=== PATIENT | female | born 1955 | race Caucasian/White ===

== ENCOUNTER → 2016-07-07 | Outpatient (CLI) | payer OTHER ==
[~2016-07-07] MED LIST: APIX2.5T PO; ASPI81TA82 PO; ATOR20TA15 PO; ATOR20TA42 PO; BACT800T5 PO; CALC500T35 PO; CHOL50006 PO; CYAN1000P IM; DEXA1TAB PO; DEXA2TAB PO; DEXA2TAB10 PO; ESOM1CAP16; HYDR5TAB64 PO; LEVO75TA3 PO; LEXA20TA PO; LORA-474 PO; LORA1TAB12 PO; NEXI40CA PO; OXCA300 PO; OXCA600T PO; PHEN100 PO; RIVA15 PO; SYMB160A INH; TRIL300T PO; VENTAER INH; VITA100018 PO; VITA100020 IM; VITA400C5 PO; ZOFR4TAB PO
[2016-07-07 13:13] LABS: FREE T4 0.72 NG/DL (0.76-1.46)
== END ==
LOC: OLAB 07:16
DX: R53.83 Other fatigue (principal); D32.9 Benign neoplasm of meninges, unspecified; Z92.3 Personal history of irradiation; Z79.52 Long term (current) use of systemic steroids
CPT/HCPCS: 84439; 84443

== ENCOUNTER 2016-09-04 13:35 | Emergency (ER) | payer OTHER ==
[~2016-09-04] VITALS: Ht 167.6 cm; Wt 95.0 kg
[~2016-09-04 13:35] MED LIST changes: -APIX2.5T PO; -ATOR20TA15 PO; -BACT800T5 PO; -CALC500T35 PO; -CYAN1000P IM; -DEXA1TAB PO; -DEXA2TAB PO; -HYDR5TAB64 PO; -LEVO75TA3 PO; -LORA1TAB12 PO; -NEXI40CA PO; -OXCA600T PO; -TRIL300T PO; -VITA100018 PO; -VITA400C5 PO; -ZOFR4TAB PO
[2016-09-04 13:37] VITALS: BP 132/74; PULSE 101; RESP 17; TEMP 98.4; O2SAT 94
[2016-09-04] MEDS ORDERED: SODIUM CHLORIDE 0.9% FLUSH 5 ML FLUSH IVF PRN (14:00)
--- NOTE | 2016-09-04 14:23 | RADRPT ---
EXAM DATE/TIME: 09/04/2016 14:01 [facility] COMPARISON: No previous studies available for comparison. INDICATIONS : Shortness of breath and pain when breathing in MEDICAL HISTORY : Seizures. PE 2 years ago, mitral valve prolapse SURGICAL HISTORY : Cholecystectomy. Hysterectomy. ENCOUNTER: Initial ACUITY: 1 day PAIN SCORE: 7/10 LOCATION: Bilateral chest FINDINGS: No infiltrate, effusion or pneumothorax. Trace linear scar seen left mid to lower lung laterally. Hea rt size stable, upper limits of normal. CONCLUSION: No acute cardiopulmonary disease demonstrated. Jared Ervin MD on September 04, 2016 at 14:21 Board Certified Radiologist. This report was verified electronically.
--- NOTE | 2016-09-04 14:24 | PD ---
HPI Chief Complaint: Respiratory Symptoms Time Seen by Provider: 13:49 Travel History International Travel<30 days: No Contact w/Intl Traveler<30days: No Traveled to known affect area: No History of Present Illness HPI 61-year-old female presents with shortness of breath and nasal congestion over the past couple of days. She states Wednesday she flew down from [place] where she was helping take care of her father. She states that she has history of pulmonary embolism and takes eliquis for this. She states she discussed her symptoms with Dr. jenkins who advised she come to the emergency department. She states in terms of her asthma she has not had an increased use in her inhaler use. She denies any fever or other concurrent complaints. She denies any specific sick contacts. Duration is couple of days. PFSH Past Medical History Hx Anticoagulant Therapy: Yes Asthma: Yes Blood Disorders: No Anxiety: Yes Depression: Yes (PTSD) Heart Rhythm Problems: Yes (SINUS TACH) Cancer: No Cardiac Catheterization: Yes Cardiovascular Problems: Yes (PE) High Cholesterol: Yes Chemotherapy: No Chest Pain: No Congestive Heart Failure: No COPD: No Diabetes: No Diminished Hearing: No Endocrine: No Gastrointestinal Disorders: Yes (ANAL POUCH (ULCERTIVE COLITIS/ TOT. COLECTOMY) , ULCER HX) GERD: Yes Genitourinary: No Headaches: Yes Hepatitis: No Hiatal Hernia: No Hypertension: Yes Immune Disorder: No Implanted Vascular Access Dvce: Yes Kidney Stones: No Musculoskeletal: Yes ( NECK PAIN, ARTHRITIS) Neurologic: Yes (MENINGIOMAS, MENIER'S SYNDROME, BALANCE PROBLEMS SOMETIMES) Psychiatric: Yes Reproductive: Yes Respiratory: Yes (BILAT PE JAN 2016) Migraines: No Radiation Therapy: Yes (meningioma on head x5 treatments, stopped 02/2015) Renal Failure: No Seizures: Yes Sickle Cell Disease: No Sleep Apnea: No Thyroid Disease: No Menopausal: Yes : 4 Para: 3 Miscarriage: 1 Past Surgical History Abdominal Surgery: Yes (TOTAL COLLECTOMY/small bowel resection) AICD: No Body Medical Devices: teena from cholectomy, FOREIGN OBJECT IN HEAD FROM CRAINEOTOMY Cardiac Surgery: Yes (CARDIAC CATH NO STENTS ) Coronary Artery Bypass Graft: No Ear Surgery: No Endocrine Surgery: No Eye Surgery: Yes (CATARACT SX BILAT EYE) Genitourinary Surgery: No Gynecologic Surgery: Yes (NISSA with BSO) Hysterectomy: Yes Joint Replacement: No Neurologic Surgery: Yes (CRANIOTOMY =MENIGIOMA) Oral Surgery: Yes (tooth extraction) Pacemaker: No Thoracic Surgery: No Other Surgery: Yes (REMOVAL OF MENINGIOMA) Family History Family Myocardial Infarction: Yes (FATHER) Social History Alcohol Use: No ( ) Tobacco Use: No Substance Use: No Allergies-Medications (Allergen,Severity, Reaction): Coded Allergies: Demerol (Verified Allergy, Severe, Nausea/Vomiting, 09/04/16) Lortab (Verified Allergy, Severe, Itching, 09/04/16) Topamax (Verified Allergy, Unknown, INCREASED HEART RATE, 09/04/16) Serevent (Verified Adverse Reaction, Severe, RESP FAILURE, 09/04/16) DENIES RESP FAILURE STATES CHEST PRESSURE. Reported Meds & Prescriptions Reported Meds & Active Scripts Active Reported Ventolin Hfa 18 GM Inh (Albuterol Sulfate) 90 Mcg/Act Aer 2 Puff INH Q6H PRN Atorvastatin (Atorvastatin Calcium) 20 Mg Tab 20 Mg PO HS Symbicort Inh (Budesonide/Formoterol Fumarate) 160-4.5 Mcg/Act Aero 2 Puff INH Q12HR Dexamethasone 2 Mg Tab 2 Mg PO EVERY OTHER DAY Dexamethasone 1 Mg Tab 1 Mg PO EVERY OTHER DAY Nexium (Esomeprazole DR) 40 Mg Capdr 40 Mg PO DAILY Lorazepam 1 Mg Tab 1 Mg PO Q6H PRN Cyanocobalamin Inj (Cyanocobalamin) 1,000 Mcg/Ml Inj 1,000 Mcg IM Q30D Oxcarbazepine 600 Mg Tab 600 Mg PO BID E-400 (Vitamin E) 400 Unit Cap 400 Units PO DAILY Bactrim DS (Sulfamethoxazole-Trimethoprim) 800-160 Mg Tab 1 Tab PO 3 TIMES A WEEK Vitamin D3 (Cholecalciferol) 1,000 Unit Tab 1,000 Units PO DAILY Calcium (Oyster Shell) 500 Mg Tab 500 Mg PO DAILY Review of Systems Except as stated in HPI: all other systems reviewed are Neg Physical Exam Narrative GENERAL: Well-nourished, well-developed patient. SKIN: Warm and dry. HEAD: Normocephalic and atraumatic. EYES: No injection or drainage. ENT: No nasal drainage noted. Bilateral TMs clear, posterior oropharynx without exudate or erythema and no significant uvular swelling NECK: Supple, trachea midline. No meningeal signs CARDIOVASCULAR: Regular rate and rhythm RESPIRATORY: Breath sounds equal bilaterally. No accessory muscle use. GASTROINTESTINAL: Abdomen soft, non-tender, nondistended. EXTREMITIES: No edema. NEUROLOGICAL: Awake and alert. Motor and sensory grossly within normal limits. Normal speech. Data Data Last Documented VS Vital Signs Date Time Temp Pulse Resp B/P Pulse Ox O2 Delivery O2 Flow Rate FiO2 09/04/16 17:08 86 20 155/86 99 09/04/16 14:43 Room Air 09/04/16 13:37 98.4 Orders Electrocardiogram (09/04/16 13:49) Ckmb (Isoenzyme) Profile (09/04/16 13:49) Complete Blood Count With Diff (09/04/16 13:49) Comprehensive Metabolic Panel (09/04/16 13:49) Magnesium (Mg) (09/04/16 13:49) Prothrombin Time / Inr (Pt) (09/04/16 13:49) Act Partial Throm Time (Ptt) (09/04/16 13:49) Troponin I (09/04/16 13:49) Chest, Single Ap (09/04/16 13:49) Ecg Monitoring (09/04/16 13:49) Bilateral Bp Monitoring (09/04/16 13:49) Iv Access Insert/Monitor (09/04/16 13:49) Oximetry (09/04/16 13:49) Sodium Chloride 0.9% Flush (Ns Flush) (09/04/16 14:00) Ct Pulmonary Angiogram (09/04/16 13:49) Influenzae A/B Antigen (09/04/16 13:57) CKMB (09/04/16 14:12) CKMB% (09/04/16 14:12) Iohexol 350 Inj (Omnipaque 350 Inj) (09/04/16 15:48) Labs Laboratory Tests Test 09/04/16 14:12 White Blood Count 8.5 TH/MM3 Red Blood Count 4.19 MIL/MM3 Hemoglobin 12.4 GM/DL Hematocrit 37.5 % Mean Corpuscular Volume 89.5 FL Mean Corpuscular Hemoglobin 29.6 PG Mean Corpuscular Hemoglobin 33.0 % Concent Red Cell Distribution Width 15.3 % Platelet Count 287 TH/MM3 Mean Platelet Volume 7.7 FL Neutrophils (%) (Auto) 64.9 % Lymphocytes (%) (Auto) 23.4 % Monocytes (%) (Auto) 10.1 % Eosinophils (%) (Auto) 1.1 % Basophils (%) (Auto) 0.5 % Neutrophils # (Auto) 5.5 TH/MM3 Lymphocytes # (Auto) 2.0 TH/MM3 Monocytes # (Auto) 0.9 TH/MM3 Eosinophils # (Auto) 0.1 TH/MM3 Basophils # (Auto) 0.0 TH/MM3 CBC Comment DIFF FINAL Differential Comment Prothrombin Time 10.1 SEC Prothromb Time International 0.9 RATIO Ratio Activated Partial 22.8 SEC Thromboplast Time Sodium Level 142 MEQ/L Potassium Level 3.5 MEQ/L Chloride Level 107 MEQ/L Carbon Dioxide Level 25.5 MEQ/L Anion Gap 10 MEQ/L Blood Urea Nitrogen 17 MG/DL Creatinine 0.96 MG/DL Estimat Glomerular Filtration 59 ML/MIN Rate Random Glucose 77 MG/DL Calcium Level 8.5 MG/DL Magnesium Level 1.9 MG/DL Total Bilirubin 0.3 MG/DL Aspartate Amino Transf 19 U/L (AST/SGOT) Alanine Aminotransferase 28 U/L (ALT/SGPT) Alkaline Phosphatase 66 U/L Total Creatine Kinase 138 U/L Creatine Kinase MB 2.5 NG/ML Troponin I LESS THAN 0.02 NG/ML Total Protein 6.0 GM/DL Albumin 3.2 GM/DL MDM Medical Decision Making Medical Screen Exam Complete: Yes Emergency Medical Condition: Yes Medical Record Reviewed: Yes (past history confirmed) Interpretation(s) CBC & BMP Diagram 09/04/16 14:12 Last 24 hours Impressions Chest X-Ray 09/04/16 1349 Signed Impressions: Service Date/Time: Sunday, September 04, 2016 14:01 - CONCLUSION: No acute cardiopulmonary disease demonstrated. Jared Ervin MD CT Angiography 09/04/16 1349 Signed Impressions: Service Date/Time: Sunday, September 04, 2016 15:46 - CONCLUSION: No new/acute pulmonary embolus demonstrated. Very small amount of nonocclusive residual clot seen in the right lower lobe pulmonary artery. Jared Ervin MD Differential Diagnosis PE, pneumonia, URI Narrative Course Will check blood work, chest x-ray, EKG, CT chest and reevaluate ed workup with likely viral uri and a small residual chronic PE. 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 Patient knows that follow up is incumbent on them and to return to the emergency room immediately if new or worsening symptoms develop. Patient given strict return precautions, vitals reviewed and are normal, agrees to further workup as an outpatient. Physician Communication Physician Communication dr brock states to [place] with follow with dr jenkins next week Diagnosis Primary Impression: Pulmonary embolism Qualified Code: I27.82 - Other chronic pulmonary embolism without acute cor pulmonale Additional Impression: Upper respiratory infection Qualified Code: J06.9 - Upper respiratory tract infection, unspecified type Referrals: Sari Jenkins MD call for appointment wednesday Patient Instructions: General Instructions Additional Instructions: return as needed, albuterol as needed Med/Other Pt SpecificInfo: No Change to Meds Disposition: 01 DISCHARGE HOME Condition: Stable Karina Laboy MD Sep 04, 2016 14:24
[2016-09-04 14:43] VITALS: BP 143/73; O2SAT 93
[2016-09-04 14:48] LABS: AUTOMATED NEUTROPHIL # 5.5 TH/MM3 (1.8-7.7); BASOPHIL % 0.5 % (0.0-2.0); EOSINOPHIL # 0.1 TH/MM3 (0-0.4); EOSINOPHIL % 1.1 % (0.0-4.0); HEMATOCRIT 37.5 % (35.0-46.0); HEMO FLAGS DIFF FINAL; LYMPH % 23.4 % (9.0-44.0); MEAN CELL VOLUME 89.5 FL (80.0-100.0); MEAN CORPUSCULAR HEMOGLOBIN 29.6 PG (27.0-34.0); MONO % 10.1 % (0.0-8.0); NEUT % 64.9 % (16.0-70.0); PLATELET COUNT 287 TH/MM3 (150-450); RED BLOOD COUNT 4.19 MIL/MM3 (4.00-5.30); RED CELL DISTRIBUTION WIDTH 15.3 % (11.6-17.2); WHITE BLOOD COUNT 8.5 TH/MM3 (4.0-11.0)
[2016-09-04 14:55] LABS: APTT (PATIENT) 22.8 SEC (24.3-30.1); INTERNATIONAL NORMALIZED RATIO 0.9 RATIO; PROTHROMBIN TIME - PATIENT 10.1 SEC (9.8-11.6)
[2016-09-04 15:17] LABS: ALKALINE PHOSPHATASE 66 U/L (45-117); CREATINE KINASE 138 U/L (26-192); TOTAL BILIRUBIN ADULT 0.3 MG/DL (0.2-1.0)
[2016-09-04 15:22] LABS: ALT (GPT) 28 U/L (10-53); ANION GAP 10 MEQ/L (5-15); AST (GOT) 19 U/L (15-37); BICARBONATE 25.5 MEQ/L (21.0-32.0); BLOOD UREA NITROGEN 17 MG/DL (7-18); CHLORIDE 107 MEQ/L (98-107); GLOMERULAR FILTRATION RATE 59 ML/MIN (>89); MAGNESIUM 1.9 MG/DL (1.5-2.5); POTASSIUM 3.5 MEQ/L (3.5-5.1); SODIUM (NA) 142 MEQ/L (136-145)
[2016-09-04 15:29] LABS: CKMB 2.5 NG/ML (0.5-3.6)
[2016-09-04] MEDS ORDERED: IOHEXOL 350 MG/ML 10 ML VIAL (for RAD DIAG) IV ONE (15:48)
--- NOTE | 2016-09-04 16:10 | RADRPT ---
EXAM DATE/TIME: 09/04/2016 15:46 [facility] COMPARISON: CT PULMONARY ANGIOGRAM, January 30, 2016, 19:32. INDICATIONS : Chest pain and shortness of breath. IV CONTRAST: 70 cc Omnipaque 350 (iohexol) IV RADIATION DOSE: 23.42 CTDIvol (mGy) MEDICAL HISTORY : Cardiovascular disease. Seizures. Previous pulmonary embolism. SURGICAL HISTORY : Total colectomy. ENCOUNTER: Initial ACUITY: 1 day PAIN SCALE: 3/10 LOCATION: Bilateral chest TECHNIQUE: Volumetric scanning of the chest was performed using a pulmonary embolism protocol MIP images were re constructed. Using automated exposure control and adjustment of the mA and/or kV according to patien t size, radiation dose was kept as low as reasonably achievable to obtain optimal diagnostic quality images. FINDINGS: PULMONARY ARTERIES: Faint, elongated embolus seen in the right lower lobe pulmonary artery, series 4 image 75. Probably t his is residual. No other or acute appearing embolus. The other emboli seen previously have result.. LUNGS: There is no consolidation or pneumothorax . No concerning pulmonary nodule is visualized. PLEURAE: There is no pleural thickening or pleural effusion. MEDIASTINUM: There is good visualization of the great vessels of the middle mediastinum. No evidence of mediastin al or hilar adenopathy/mass. MUSCULOSKELETAL: Within normal limits for patient age. MISCELLANEOUS: Moderate hiatal hernia, slightly larger than before. CONCLUSION: No new/acute pulmonary embolus demonstrated. Very small amount of nonocclusive residual clot seen in the right lower lobe pulmonary artery. Jared Ervin MD on September 04, 2016 at 16:05 Board Certified Radiologist. This report was verified electronically.
[2016-09-04] MEDS ORDERED: VITA100018 PO (17:01)
[2016-09-04] MEDS ORDERED: CALC500T35 PO (17:01)
[2016-09-04] MEDS ORDERED: BACT800T5 PO (17:01)
[2016-09-04] MEDS ORDERED: OXCA600T PO (17:05)
[2016-09-04] MEDS ORDERED: NEXI40CA PO (17:05)
[2016-09-04] MEDS ORDERED: DEXA1TAB PO (17:05)
[2016-09-04] MEDS ORDERED: LORA1TAB12 PO (17:05)
[2016-09-04] MEDS ORDERED: VITA400C5 PO (17:05)
[2016-09-04] MEDS ORDERED: CYAN1000P IM (17:05)
[2016-09-04] MEDS ORDERED: DEXA2TAB PO (17:06)
[2016-09-04 17:08] VITALS: BP 155/86
[2016-09-04] MEDS ORDERED: SYMB160A INH (17:09)
[2016-09-04] MEDS ORDERED: VENTAER INH (17:09)
[2016-09-04] MEDS ORDERED: ATOR20TA15 PO (17:09)
--- NOTE | 2016-09-05 14:32 | EKG ---
Date Performed: 09/04/2016 Time Performed: 13:39:49 PTAGE: 61 years EKG: Sinus rhythm WITH SHORT CA INTERVAL CA interval .14 Within normal limits Compared to the PREVIOUS TRACING T wave changes have improved PREVIOUS TRACIN02/26/2016 05.02 DOCTOR: Geremias Jenkins Interpretating Date/Time 09/05/2016 14:31:36
== END 2016-09-04 17:29 | disposition home or self-care (01) ==
LOC: NEPC 13:35
DX: I27.82 Chronic pulmonary embolism (principal); J06.9 Acute upper respiratory infection, unspecified; I10 Essential (primary) hypertension; E78.00 Pure hypercholesterolemia, unspecified; Z79.01 Long term (current) use of anticoagulants; Z86.711 Personal history of pulmonary embolism; Z87.09 Personal history of other diseases of the respiratory system; Z86.79 Personal history of other diseases of the circulatory system; Z87.19 Personal history of other diseases of the digestive system; Z87.39 Personal history of other diseases of the musculoskeletal system and connective tissue; Z86.69 Personal history of other diseases of the nervous system and sense organs; Z87.42 Personal history of other diseases of the female genital tract; Z86.59 Personal history of other mental and behavioral disorders
CPT/HCPCS: 71010; 71275; 80053; 82550; 82552; 83735; 84484; 85025; 85610; 85730; 87804; 93005; 99284; Q9967

== ENCOUNTER → 2016-09-10 | Outpatient (CLI) | payer OTHER ==
[~2016-09-10] MED LIST changes: +APIX2.5T PO; -ASPI81TA82 PO; +ATOR20TA15 PO; -ATOR20TA42 PO; +BACT800T5 PO; +CALC500T35 PO; -CHOL50006 PO; +CYAN1000P IM; +DEXA1TAB PO; +DEXA2TAB PO; -DEXA2TAB10 PO; -ESOM1CAP16; +HYDR5TAB64 PO; +LEVO75TA3 PO; -LORA-474 PO; +LORA1TAB12 PO; +NEXI40CA PO; -OXCA300 PO; +OXCA600T PO; -PHEN100 PO; -RIVA15 PO; +TRIL300T PO; +VITA100018 PO; -VITA100020 IM; +VITA400C5 PO; +ZOFR4TAB PO
== END ==
LOC: OLAB 10:17
DX: D32.9 Benign neoplasm of meninges, unspecified (principal); R53.83 Other fatigue; F09 Unspecified mental disorder due to known physiological condition; R56.9 Unspecified convulsions; I27.82 Chronic pulmonary embolism; Z92.3 Personal history of irradiation
CPT/HCPCS: 80183; 84439

== ENCOUNTER 2016-11-03 10:01 | Observation (INO) | payer OTHER ==
[~2016-11-03] VITALS: Ht 167.6 cm; Wt 90.0 kg
[~2016-11-03 10:01] MED LIST changes: -APIX2.5T PO; -HYDR5TAB64 PO; -LEVO75TA3 PO; -LEXA20TA PO; -TRIL300T PO; -ZOFR4TAB PO
[2016-11-03 10:03] VITALS: BP 140/82; PULSE 103; RESP 17; TEMP 98.1; O2SAT 98
[2016-11-03] MEDS ORDERED: APIX2.5T PO (10:28)
[2016-11-03] MEDS ORDERED: TRIL300T PO (10:28)
[2016-11-03] MEDS ORDERED: ZOFR4TAB PO (10:28)
[2016-11-03] MEDS ORDERED: LEVO75TA3 PO (10:28)
[2016-11-03] MEDS ORDERED: HYDR5TAB64 PO ×2 (10:28)
[2016-11-03] MEDS ORDERED: LEXA20TA PO (10:28)
[2016-11-03] MEDS ORDERED: ASPIRIN 325 MG TAB PO ONE (10:30)
[2016-11-03] MEDS ORDERED: SODIUM CHLORIDE 0.9% FLUSH 10 ML FLUSH IVF PRN (10:30)
--- NOTE | 2016-11-03 10:33 | PD ---
HPI Chief Complaint: Chest Pain Time Seen by Provider: 10:09 Travel History International Travel<30 days: No Contact w/Intl Traveler<30days: No Traveled to known affect area: No History of Present Illness HPI 61-year-old female complains of chest pain for about 4-5 days. Seems to come and go with 15 minute episodes. Pain is 6/10 once there. Has a pressure-like quality. Location retrosternal. No radiation. Associated symptoms include swelling in the feet bilaterally causing pain when walking. Patient reports compliance with Eloquis. She suffers with shortness of breath on a chronic basis and reports no change in severity. PFSH Past Medical History Hx Anticoagulant Therapy: Yes Asthma: Yes Blood Disorders: No Anxiety: Yes Depression: Yes (PTSD) Heart Rhythm Problems: Yes (SINUS TACH) Cancer: No Cardiac Catheterization: Yes Cardiovascular Problems: Yes (PE) High Cholesterol: Yes Chemotherapy: No Chest Pain: No Congestive Heart Failure: No COPD: No Diabetes: No Diminished Hearing: No Endocrine: No Gastrointestinal Disorders: Yes (ANAL POUCH (ULCERTIVE COLITIS/ TOT. COLECTOMY) , ULCER HX) GERD: Yes Genitourinary: No Headaches: Yes Hepatitis: No Hiatal Hernia: No Hypertension: Yes Immune Disorder: No Implanted Vascular Access Dvce: Yes Kidney Stones: No Musculoskeletal: Yes ( NECK PAIN, ARTHRITIS) Neurologic: Yes (MENINGIOMAS, MENIER'S SYNDROME, BALANCE PROBLEMS SOMETIMES) Psychiatric: Yes Reproductive: Yes Respiratory: Yes (BILAT PE JAN 2016) Migraines: No Radiation Therapy: Yes (meningioma on head x5 treatments, stopped 02/2015) Renal Failure: No Seizures: Yes Sickle Cell Disease: No Sleep Apnea: No Thyroid Disease: No ?: Not Menopausal: Yes : 4 Para: 3 Miscarriage: 1 Past Surgical History Abdominal Surgery: Yes (TOTAL COLLECTOMY/small bowel resection) AICD: No Body Medical Devices: teena from cholectomy, FOREIGN OBJECT IN HEAD FROM CRAINEOTOMY Cardiac Surgery: Yes (CARDIAC CATH NO STENTS ) Coronary Artery Bypass Graft: No Ear Surgery: No Endocrine Surgery: No Eye Surgery: Yes (CATARACT SX BILAT EYE) Genitourinary Surgery: No Gynecologic Surgery: Yes (NISSA with BSO) Hysterectomy: Yes Joint Replacement: No Neurologic Surgery: Yes (CRANIOTOMY =MENIGIOMA) Oral Surgery: Yes (tooth extraction) Pacemaker: No Thoracic Surgery: No Other Surgery: Yes (REMOVAL OF MENINGIOMA) Family History Family Myocardial Infarction: Yes (FATHER) Social History Alcohol Use: No ( ) Tobacco Use: No Substance Use: No Allergies-Medications (Allergen,Severity, Reaction): Coded Allergies: Demerol (Verified Allergy, Severe, Nausea/Vomiting, 11/03/16) Lortab (Verified Allergy, Severe, Itching, 11/03/16) Topamax (Verified Allergy, Unknown, INCREASED HEART RATE, 11/03/16) Serevent (Verified Adverse Reaction, Severe, RESP FAILURE, 11/03/16) DENIES RESP FAILURE STATES CHEST PRESSURE. Reported Meds & Prescriptions Reported Meds & Active Scripts Active Reported Zofran (Ondansetron HCl) 4 Mg Tab 4 Mg PO Q6HR PRN Levothyroxine (Levothyroxine Sodium) 75 Mcg Tab 75 Mcg PO DAILY Hydrocortisone 5 Mg Tab 5 Mg PO HS Take with food to decrease GI upset Hydrocortisone 5 Mg Tab 15 Mg PO DAILY Take with food to decrease GI upset Eliquis (Apixaban) 2.5 Mg Tab 2.5 Mg PO BID Trileptal (Oxcarbazepine) 300 Mg Tab 300 Mg PO BID Lexapro (Escitalopram Oxalate) 20 Mg Tab 20 Mg PO DAILY Ventolin Hfa 18 GM Inh (Albuterol Sulfate) 90 Mcg/Act Aer 2 Puff INH Q6H PRN Atorvastatin (Atorvastatin Calcium) 20 Mg Tab 20 Mg PO HS Symbicort Inh (Budesonide/Formoterol Fumarate) 160-4.5 Mcg/Act Aero 2 Puff INH Q12HR Nexium (Esomeprazole DR) 40 Mg Capdr 22.3 Mg PO DAILY Lorazepam 1 Mg Tab 1 Mg PO Q6H PRN Cyanocobalamin Inj (Cyanocobalamin) 1,000 Mcg/Ml Inj 1,000 Mcg IM Q30D E-400 (Vitamin E) 400 Unit Cap 400 Units PO DAILY Vitamin D3 (Cholecalciferol) 1,000 Unit Tab 1,000 Units PO DAILY Calcium (Oyster Shell) 500 Mg Tab 500 Mg PO DAILY Review of Systems Except as stated in HPI: all other systems reviewed are Neg Physical Exam Narrative GENERAL: 61-year-old female well-nourished well-developed SKIN: Focused skin assessment warm/dry. HEAD: Atraumatic. Normocephalic. EYES: Pupils equal and round. No scleral icterus. No injection or drainage. ENT: No nasal bleeding or discharge. Mucous membranes pink and moist. NECK: Trachea midline. No JVD. CARDIOVASCULAR: Regular rate and rhythm. No murmur appreciated. RESPIRATORY: No accessory muscle use. Clear to auscultation. Breath sounds equal bilaterally. GASTROINTESTINAL: Abdomen soft, non-tender, nondistended. Hepatic and splenic margins not palpable. MUSCULOSKELETAL: No obvious deformities. No clubbing. No cyanosis. No sign DVT. NEUROLOGICAL: Awake and alert. No obvious cranial nerve deficits. Motor grossly within normal limits. Normal speech. PSYCHIATRIC: Appropriate mood and affect; insight and judgment normal. Data Data Last Documented VS Vital Signs Date Time Temp Pulse Resp B/P Pulse Ox O2 Delivery O2 Flow Rate FiO2 11/03/16 10:03 98.1 103 17 140/82 98 VS reviewed Orders Electrocardiogram (11/03/16 ) Basic Metabolic Panel (Bmp) (11/03/16 10:17) B-Type Natriuretic Peptide (11/03/16 10:17) Ckmb (Isoenzyme) Profile (11/03/16 10:17) Complete Blood Count With Diff (11/03/16 10:17) Magnesium (Mg) (11/03/16 10:17) Prothrombin Time / Inr (Pt) (11/03/16 10:17) Act Partial Throm Time (Ptt) (11/03/16 10:17) Troponin I (11/03/16 10:17) Chest, Single Ap (11/03/16 10:17) Ecg Monitoring (11/03/16 10:17) Bilateral Bp Monitoring (11/03/16 10:17) Iv Access Insert/Monitor (11/03/16 10:17) Oximetry (11/03/16 10:17) Oxygen Administration (11/03/16 10:17) Aspirin (Aspirin) (11/03/16 10:30) Sodium Chloride 0.9% Flush (Ns Flush) (11/03/16 10:30) CKMB (11/03/16 10:20) CKMB% (11/03/16 10:20) Place In Observation (11/03/16 11:54) Activity Bed Rest With Brp (11/03/16 11:54) Vital Signs (Adult) Q4H (11/03/16 11:54) Cardiac Rhythm .As Directed (11/03/16 11:54) Notify Dr: Other .PRN (11/03/16 11:54) Notify Dr. Parameters (11/03/16 11:54) Resp Oxygen Nasal Cannula (11/03/16 ) Ckmb (Isoenzyme) Profile (11/03/16 11:54) Ckmb (Isoenzyme) Profile (11/03/16 14:54) Troponin I (11/03/16 11:54) Troponin I (11/03/16 14:54) Electrocardiogram (11/03/16 11:54) Electrocardiogram (11/03/16 14:54) ^ Obtain (11/03/16 11:54) Ondansetron Inj (Zofran Inj) (11/03/16 12:00) Nitroglycerin Sl (Nitrostat Sl) (11/03/16 12:00) Temazepam (Restoril) (11/03/16 12:00) Alprazolam (Xanax) (11/03/16 12:00) Mental Hygienist / Telemetry SALO.Q8H (11/03/16 11:54) Admit Order (Ed Use Only) (11/03/16 11:54) Labs Laboratory Tests Test 11/03/16 10:20 White Blood Count 11.1 TH/MM3 Red Blood Count 4.48 MIL/MM3 Hemoglobin 12.3 GM/DL Hematocrit 39.6 % Mean Corpuscular Volume 88.2 FL Mean Corpuscular Hemoglobin 27.5 PG Mean Corpuscular Hemoglobin 31.2 % Concent Red Cell Distribution Width 15.9 % Platelet Count 271 TH/MM3 Mean Platelet Volume 7.7 FL Neutrophils (%) (Auto) 81.5 % Lymphocytes (%) (Auto) 7.7 % Monocytes (%) (Auto) 9.5 % Eosinophils (%) (Auto) 0.9 % Basophils (%) (Auto) 0.4 % Neutrophils # (Auto) 9.1 TH/MM3 Lymphocytes # (Auto) 0.9 TH/MM3 Monocytes # (Auto) 1.1 TH/MM3 Eosinophils # (Auto) 0.1 TH/MM3 Basophils # (Auto) 0.0 TH/MM3 CBC Comment DIFF FINAL Differential Comment Prothrombin Time 10.3 SEC Prothromb Time International 0.9 RATIO Ratio Activated Partial 24.1 SEC Thromboplast Time Sodium Level 142 MEQ/L Potassium Level 4.1 MEQ/L Chloride Level 107 MEQ/L Carbon Dioxide Level 27.7 MEQ/L Anion Gap 7 MEQ/L Blood Urea Nitrogen 17 MG/DL Creatinine 0.96 MG/DL Estimat Glomerular Filtration 59 ML/MIN Rate Random Glucose 99 MG/DL Calcium Level 8.9 MG/DL Magnesium Level 2.0 MG/DL Total Creatine Kinase 124 U/L Creatine Kinase MB 1.9 NG/ML Troponin I LESS THAN 0.02 NG/ML B-Type Natriuretic Peptide 12 PG/ML MDM Medical Decision Making Medical Screen Exam Complete: Yes Emergency Medical Condition: Yes Medical Record Reviewed: Yes Differential Diagnosis NSTEMI, unstable angina, coronary vasospasm, PE, PTX, aortic dissection, pericarditis, myocarditis, endocarditis, PNA, esophageal disease, aneurysm, musculoskeletal etiologies, anxiety, cocaine/sympathomimetic abuse Narrative Course EKG: Sinus, rate 93, normal axis/intervals Last 24 hours Impressions Chest X-Ray 11/03/16 1017 Signed Impressions: Service Date/Time: Thursday, November 03, 2016 10:18 - CONCLUSION: Stable bibasilar densities likely scarring. Cardiomegaly. Cristiano Deal MD CBC & BMP Diagram 11/03/16 10:20 Tn < 0.02 1202PM: No pain, resting comfortably on bed, notes stress test performed approx 1.5-2.0 yrs prior. Chest pain center protocol considered next best step for the patient. She is agreeable w plan. Diagnosis Primary Impression: Chest pain Qualified Code: R07.9 - Chest pain, unspecified type Admitting Information Admitting Physician Requests: Observation Michael De La Cruz MD November 03, 2016 10:33
[2016-11-03 10:38] LABS: AUTOMATED NEUTROPHIL # 9.1 TH/MM3 (1.8-7.7); BASOPHIL % 0.4 % (0.0-2.0); EOSINOPHIL # 0.1 TH/MM3 (0-0.4); EOSINOPHIL % 0.9 % (0.0-4.0); HEMATOCRIT 39.6 % (35.0-46.0); HEMO FLAGS DIFF FINAL; LYMPH % 7.7 % (9.0-44.0); LYMPHOCYTE # 0.9 TH/MM3 (1.0-4.8); MEAN CELL VOLUME 88.2 FL (80.0-100.0); MEAN CORPUSCULAR HEMOGLOBIN 27.5 PG (27.0-34.0); MEAN CORPUSCULAR HGB CONC 31.2 % (32.0-36.0); MONO % 9.5 % (0.0-8.0); NEUT % 81.5 % (16.0-70.0); PLATELET COUNT 271 TH/MM3 (150-450); RED BLOOD COUNT 4.48 MIL/MM3 (4.00-5.30); RED CELL DISTRIBUTION WIDTH 15.9 % (11.6-17.2); WHITE BLOOD COUNT 11.1 TH/MM3 (4.0-11.0)
--- NOTE | 2016-11-03 10:45 | RADRPT ---
EXAM DATE/TIME: 11/03/2016 10:18 [facility] COMPARISON: CHEST SINGLE AP, September 04, 2016, 14:01. INDICATIONS : Chest pains mid sternal with palpitations. MEDICAL HISTORY : None. SURGICAL HISTORY : None. ENCOUNTER: Initial ACUITY: 1 day PAIN SCORE: 0/10 LOCATION: Bilateral chest FINDINGS: A single view of the chest demonstrates cardiomegaly and bibasilar densities. Heart is mildly enlarge d.. The cardiomediastinal contours are unremarkable. Osseous structures are intact. CONCLUSION: Stable bibasilar densities likely scarring. Cardiomegaly. Cristiano Deal MD on November 03, 2016 at 10:42 Board Certified Radiologist. This report was verified electronically.
[2016-11-03 10:46] LABS: APTT (PATIENT) 24.1 SEC (24.3-30.1); INTERNATIONAL NORMALIZED RATIO 0.9 RATIO; PROTHROMBIN TIME - PATIENT 10.3 SEC (9.8-11.6)
[2016-11-03 10:50] LABS: ANION GAP 7 MEQ/L (5-15); BICARBONATE 27.7 MEQ/L (21.0-32.0); BLOOD UREA NITROGEN 17 MG/DL (7-18); CHLORIDE 107 MEQ/L (98-107); GLOMERULAR FILTRATION RATE 59 ML/MIN (>89); POTASSIUM 4.1 MEQ/L (3.5-5.1); SODIUM (NA) 142 MEQ/L (136-145)
[2016-11-03 10:53] LABS: CREATINE KINASE 124 U/L (26-192)
[2016-11-03 11:06] LABS: CKMB 1.9 NG/ML (0.5-3.6)
[2016-11-03] MEDS ORDERED: NITROGLYCERIN 0.4 MG SL 25 TABS/BTL SL PRN (12:00)
[2016-11-03] MEDS ORDERED: TEMAZEPAM 15 MG CAP PO PRN (12:00)
[2016-11-03] MEDS ORDERED: ONDANSETRON HCL 4 MG/2 ML VIAL IV PRN (12:00)
[2016-11-03] MEDS ORDERED: ALPRAZolam 0.25 MG TAB PO PRN (12:00)
[2016-11-03] MEDS ORDERED: LORazepam 1 MG TAB PO PRN (12:30)
[2016-11-03 12:35] VITALS: O2SAT 98
[2016-11-03] MEDS ORDERED: ONDANSETRON HCL 4 MG/2 ML VIAL IV PUSH PRN (12:45)
[2016-11-03] MEDS ORDERED: RESP: ALBUTEROL 2.5 MG/IPRATROPIUM 0.5 MG NEB (PRN) INH (12:45)
[2016-11-03] MEDS ORDERED: cloNIDine HCL 0.1 MG TAB PO PRN (12:45)
[2016-11-03] MEDS ORDERED: PILL SPLITTER OTHER PRN (13:00)
[2016-11-03] MEDS ORDERED: NEXI40CA PO (13:03)
[2016-11-03 13:30] VITALS: BP 147/76
[2016-11-03 13:44] VITALS: BP 122/72; PULSE 88; RESP 20; TEMP 98.2; O2SAT 95
[2016-11-03 14:15] LABS: CREATINE KINASE 111 U/L (26-192)
[2016-11-03 16:14] LABS: CREATINE KINASE 108 U/L (26-192)
--- NOTE | 2016-11-03 16:22 | HHI.DCPOC ---
Discharge Care Plan Diagnosis: (1) Chest pain (2) Hyperlipidemia (3) Hypothyroidism Goals to Promote Your Health * To prevent worsening of your condition and complications * To maintain your health at the optimal level Directions to Meet Your Goals Take your medications as prescribed Follow your dietary instruction Follow activity as directed Keep your appointments as scheduled Take your immunizations and boosters as scheduled If your symptoms worsen call your PCP, if no PCP go to Urgent Care Center or Emergency Room Smoking is Dangerous to Your Health. Avoid second hand smoke Call the 24-hour hour crisis hotline for domestic abuse at Gaurav Rocha November 03, 2016 16:22
--- NOTE | 2016-11-03 17:59 | EKG ---
Date Performed: 11/03/2016 Time Performed: 10:15:45 PTAGE: 61 years EKG: Sinus rhythm NORMAL ECG Since PREVIOUS TRACING , no significant change noted DOCTOR: Helena Caraballo Interpretating Date/Time 11/03/2016 17:58:22
[2016-11-03] MEDS ORDERED: HYDROCORTISONE 10 MG TAB PO SCH (21:00)
[2016-11-03] MEDS ORDERED: BUDESONIDE-FORMOTEROL 160/4.5 MCG INHALER INH SCH (21:00)
[2016-11-03] MEDS ORDERED: APIXABAN 2.5 MG TABLET PO SCH (21:00)
[2016-11-03] MEDS ORDERED: ATORVASTATIN 20 MG TAB PO SCH (21:00)
[2016-11-03] MEDS ORDERED: OXcarbazepine 300 MG TAB PO SCH (21:00)
[2016-11-04] MEDS ORDERED: LEVOTHYROXINE SODIUM 75 MCG TAB PO SCH (06:00)
[2016-11-04] MEDS ORDERED: ASPIRIN 325 MG TAB PO SCH (09:00)
[2016-11-04] MEDS ORDERED: ESCITALOPRAM OXALATE 20 MG TAB PO SCH (09:00)
[2016-11-04] MEDS ORDERED: HYDROCORTISONE 10 MG TAB PO SCH (09:00)
--- NOTE | 2016-11-04 14:09 | EKG ---
Date Performed: 11/03/2016 Time Performed: 12:51:12 PTAGE: 61 years EKG: Sinus rhythm NORMAL ECG NO PREVIOUS TRACING DOCTOR: Luke Brasher Interpretating Date/Time 11/04/2016 14:06:54
--- NOTE | 2016-11-17 11:49 | HHI.HP ---
[facility] Primary Care Physician Shyanne Ortiz M.D. Chief Complaint Chest pain History of Present Illness This is a 61-year-old female that presents to ED to evaluate chest discomfort. Described as pressure. Lasting 4-5 days intermittently. Lasting about 15 minutes at a time. 6 out of 10. She has been short of breath than states she' s also been short of breath chronically since having a palmar embolus. She voices compliance with Eliquis. Found nothing to bring on the discomfort. Review of Systems General: Patient denies fevers, chills recent, and recent travel HEENT: Patient denies headache, sore throat, difficulty swallowing. Cardiovascular: Has the chest discomfort as mentioned above. Denies sensation of heart beating rapidly or irregularly. No syncope. Denies diaphoresis. Respiratory: States she has been chronically short of breath or change in these chronic symptoms. Denies inspirational chest discomfort. Denies coughing wheezing or hemoptysis. GI: Patient denies nausea, vomiting, diarrhea, abdominal pain, bloody stools. Musculoskeletal: Patient denies joint pain or edema. Denies calf pain or edema. Neurovascular: Patient denies numbness, tingling, weakness in extremities. Denies headache. Endocrine: Denies polyuria and polydipsia. Hematologic: Denies easy bruising. Skin: Denies rash or itching. Past Family Social History Allergies: Coded Allergies: Demerol (Verified Allergy, Severe, Nausea/Vomiting, 11/03/16) Lortab (Verified Allergy, Severe, Itching, 11/03/16) Topamax (Verified Allergy, Unknown, INCREASED HEART RATE, 11/03/16) Serevent (Verified Adverse Reaction, Severe, RESP FAILURE, 11/03/16) DENIES RESP FAILURE STATES CHEST PRESSURE. Past Medical History Hyperlipidemia, GERD, hypothyroidism, history of pulmonary embolus. GERD. Asthma. Past Surgical History Cardiac catheter revealing normal coronaries in 2004. Craniotomy secondary to meningioma. Hysterectomy. Small bowel resection. Reported Medications Reported Meds & Active Scripts Active Reported Nexium (Esomeprazole DR) 40 Mg Capdr 40 Mg PO DAILY Zofran (Ondansetron HCl) 4 Mg Tab 4 Mg PO Q6HR PRN Levothyroxine (Levothyroxine Sodium) 75 Mcg Tab 75 Mcg PO DAILY Hydrocortisone 5 Mg Tab 5 Mg PO HS Take with food to decrease GI upset Hydrocortisone 5 Mg Tab 15 Mg PO DAILY Take with food to decrease GI upset Eliquis (Apixaban) 2.5 Mg Tab 2.5 Mg PO BID Trileptal (Oxcarbazepine) 300 Mg Tab 300 Mg PO BID Lexapro (Escitalopram Oxalate) 20 Mg Tab 20 Mg PO DAILY Ventolin Hfa 18 GM Inh (Albuterol Sulfate) 90 Mcg/Act Aer 2 Puff INH Q6H PRN Atorvastatin (Atorvastatin Calcium) 20 Mg Tab 20 Mg PO HS Symbicort Inh (Budesonide/Formoterol Fumarate) 160-4.5 Mcg/Act Aero 2 Puff INH Q12HR Lorazepam 1 Mg Tab 1 Mg PO Q6H PRN Cyanocobalamin Inj (Cyanocobalamin) 1,000 Mcg/Ml Inj 1,000 Mcg IM Q30D E-400 (Vitamin E) 400 Unit Cap 400 Units PO DAILY Vitamin D3 (Cholecalciferol) 1,000 Unit Tab 1,000 Units PO DAILY Calcium (Oyster Shell) 500 Mg Tab 500 Mg PO DAILY Family History Her father has CAD. Social History Patient does not smoke, drink alcohol, or use illicit drugs. Physical Exam Physical Exam GENERAL: This is a well-nourished, well-developed patient, in no apparent distress. Patient speaks in clear complete sentences. Patient is pleasant. HEENT: Head is atraumatic and normocephalic. Neck is supple without lymphadenopathy and trachea is midline. No JVD or carotid bruits. CARDIOVASCULAR: Regular rate and rhythm without murmurs, gallops, or rubs. RESPIRATORY: Clear to auscultation. Breath sounds equal bilaterally. No wheezes , rales, or rhonchi. Chest wall is nontender. No use of accessory muscles. GASTROINTESTINAL: Abdomen is nontender, nondistended. Abdomen soft. No obvious pulsatile mass or bruit. No CVA tenderness. Strong femoral pulses bilaterally. Normal bowel sounds in all quadrants. MUSCULOSKELETAL: Patient is moving upper and lower extremities freely. No calf tenderness or edema, no Homans sign. Strong pulses in upper and lower extremities. NEUROLOGICAL: Patient is alert and oriented. Cranial nerves 2-12 are grossly intact. No focal deficits and speech is clear. SKIN: No rash and turgor is normal. Laboratory CBC is okay. Coag studies are okay. Basic metabolic panel care. Troponins normal 3. TSH is decreased 0.083. Imaging Single view chest x-ray has been read by radiologist as stable bibasilar densities likely scarring. Cardiomegaly. Course EKGs have sinus rhythm without significant ST segment depressions or elevations. Assessment and Plan Assessment and Plan * Chest pain: Patient has had serial cardiac enzymes and EKGs for ruling out purposes. Patient has been seen by Dr. Caraballo cardiology in the chest pain center and will follow-up with Dr. Armstrong as well as her primary care physician. * Hypothyroidism: Her TSH is decreased. Has been advised to hold her thyroid medication today and discuss with physician for change in dosing. * Hyperlipidemia: Continue current medication. Patient is stable at this time. She is agreeable to this plan. Gaurav Rocha November 17, 2016 11:49
== END 2016-11-03 17:24 | disposition home or self-care (01) ==
LOC: NEPE 10:01 → NEDA 11:57 → NEPGCP 13:34
PROVIDERS: ADMIT Internal Medicine Interventional Cardiology; ATTEND Internal Medicine Interventional Cardiology
DX: R07.89 Other chest pain (principal); E03.9 Hypothyroidism, unspecified; E78.5 Hyperlipidemia, unspecified; J45.909 Unspecified asthma, uncomplicated; I11.9 Hypertensive heart disease without heart failure; F41.9 Anxiety disorder, unspecified; F43.10 Post-traumatic stress disorder, unspecified; E78.00 Pure hypercholesterolemia, unspecified; Z86.011 Personal history of benign neoplasm of the brain; Z82.49 Family history of ischemic heart disease and other diseases of the circulatory system; Z88.5 Allergy status to narcotic agent; Z88.8 Allergy status to other drugs, medicaments and biological substances; Z79.01 Long term (current) use of anticoagulants; Z79.899 Other long term (current) drug therapy
CPT/HCPCS: 71010; 80048; 82550; 82552; 83735; 83880; 84443; 84484; 85025; 85610; 85730; 93005; 99285; G0378

== ENCOUNTER → 2016-11-16 | Outpatient (CLI) | payer OTHER ==
[~2016-11-16] MED LIST changes: +APIX2.5T PO; -BACT800T5 PO; -DEXA1TAB PO; -DEXA2TAB PO; +HYDR5TAB64 PO; +LEVO75TA3 PO; +LEXA20TA PO; -OXCA600T PO; +TRIL300T PO; +ZOFR4TAB PO
--- NOTE | 2016-11-17 20:17 | HM ---
Date Performed: 11/16/2016 Time Performed: 08:10:00 HOOKUP DATE: 11/16/16 08:10:00 AM Mon ANALYSIS START TIME: 11/16/2016 8:15:00 AM ANALYSIS END TIME: 11/17/2016 8:19:00 AM PATIENT AGE: 61 PATIENT HEIGHT PATIENT WEIGHT DRUG LIST PATIENT DIAGNOSIS: sob/irregular heart beat TEST NARRATIVE: The patient's average heart rate was 89 BPM. Heart rates greater than 120 B PM were noted 12% of the time. No episodes of bradycardia were noted. No pauses exceeding 2.0 se conds were noted. 10 ventricular ectopics, which represented < 1% of the total beat count, were n oted. The highest ventricular ectopic frequency occurred from 03:00 AM to 04:00 AM Tue. During this time 4 VE(s) occurred. Ventricular ectopics were observed as 10 isolated beat(s) only. No couplets or runs were noted. 15 supraventricular ectopics, which represented < 1% of the total beat count , were noted. The highest supraventricular ectopic frequency occurred from 11:00 AM to 12:00 PM Mon. During this time 11 SVE(s) occurred. No episodes of ST depression (defined as -1.0 mm or more) were noted in channel 1. No episodes of ST depression (defined as -1.0 mm or more) were noted in ryanne nnel 2. No episodes of ST depression (defined as -1.0 mm or more) were noted in channel 3. TEST INTERPRETATION: Sinus rhythm Sinus tachycardia PACs and PVCs Nonsustained supraventricular tachycardia Signed by : Carlos Munoz
== END ==
LOC: HCAV 09:36
PROVIDERS: ATTEND Internal Medicine Cardiovascular Disease
DX: R06.02 Shortness of breath (principal); I49.9 Cardiac arrhythmia, unspecified; R00.0 Tachycardia, unspecified
CPT/HCPCS: 93225; 93226

== ENCOUNTER → 2016-12-16 | Outpatient (CLI) | payer OTHER | LOC: OLAB 07:27 | DX: Z79.52 Long term (current) use of systemic steroids (principal) | CPT/HCPCS: 84439 ==

== ENCOUNTER → 2017-01-28 | Outpatient (CLI) | payer OTHER ==
[2017-01-28 09:31] LABS: FREE T4 0.81 NG/DL (0.76-1.46)
== END ==
LOC: OLAB 07:49
DX: E03.8 Other specified hypothyroidism (principal); M85.80 Other specified disorders of bone density and structure, unspecified site
CPT/HCPCS: 82306; 84439; 84443

== ENCOUNTER → 2017-02-02 | Outpatient (CLI) | payer OTHER ==
[~2017-02-02] MED LIST changes: +AMOX500C PO; +LEVO88TA2 PO; +MAPA500T13 PO; +MODA100T9 PO; +TRIL600T PO; +VERA120C PO
[2017-02-03 09:18] LABS: BACTERIA, URINE FEW /hpf; BLOOD, URINE NEG (NEG); COMMENT (UR) CULTURE INDICATED; CULTURE IF INDICATED CULTURE INDICATED; GLUCOSE,URINE NEG (NEG); KETONE, URINE NEG (NEG); SQUAMOUS EPITHELIAL CELL URINE 1 /hpf (0-5); URINE COLOR YELLOW (YELLW/STRAW)
[2017-02-03 09:20] LABS: NITRITE,URINE POS (NEG)
== END ==
LOC: OLAB 10:44
PROVIDERS: ATTEND Family Medicine
DX: N39.0 Urinary tract infection, site not specified (principal); B96.20 Unspecified Escherichia coli [E. coli] as the cause of diseases classified elsewhere
CPT/HCPCS: 81001; 87077; 87086; 87186

== ENCOUNTER → 2017-02-18 | Outpatient (CLI) | payer OTHER | LOC: OLAB 07:06 | PROVIDERS: ATTEND Internal Medicine Gastroenterology | DX: R10.9 Unspecified abdominal pain (principal) | CPT/HCPCS: 87506 ==

== ENCOUNTER 2017-03-01 14:51 | Observation (INO) | payer OTHER ==
[~2017-03-01] VITALS: Ht 167.6 cm; Wt 84.0 kg
[~2017-03-01 14:51] MED LIST changes: -AMOX500C PO; -LEVO88TA2 PO; -MAPA500T13 PO; -MODA100T9 PO; -TRIL600T PO; -VERA120C PO
[2017-03-01 14:54] VITALS: BP 147/80; PULSE 94; RESP 24; TEMP 98.2; O2SAT 95
[2017-03-01 15:01] VITALS: BP 159/81; PULSE 85; RESP 18; O2SAT 96
[2017-03-01] MEDS ORDERED: VERA120C PO (15:22)
[2017-03-01] MEDS ORDERED: LEVO88TA2 PO (15:22)
[2017-03-01] MEDS ORDERED: MODA100T9 PO (15:22)
[2017-03-01] MEDS ORDERED: AMOX500C PO (15:22)
[2017-03-01] MEDS ORDERED: MAPA500T13 PO (15:22)
[2017-03-01] MEDS ORDERED: TRIL600T PO (15:22)
--- NOTE | 2017-03-01 15:49 | PD ---
HPI Chief Complaint: Dizziness Time Seen by Provider: 15:03 Travel History International Travel<30 days: No Contact w/Intl Traveler<30days: No Traveled to known affect area: No History of Present Illness HPI 62yo F with PMH of meningioma presents to the ED with c/o loss of balance since yesterday. Said she feels like she is drunk but not. Also with new paresthesia in left face V2-V3. 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 Burtno . Pt also had her right cavernous sinus region meningioma removed in [facility]. Pt currently follows with neurosurgeon in [place]. She has also seen Dr. Byrd for seizure. Denies any fever, chest pain, sob, n/ v, abdominal pain, focal weakness. PFSH Past Medical History Hx Anticoagulant Therapy: Yes (ELIQUIS) Asthma: Yes Blood Disorders: No Anxiety: Yes Depression: Yes (PTSD) Heart Rhythm Problems: Yes (SVT) Cancer: No Cardiac Catheterization: Yes Cardiovascular Problems: Yes (SVT) High Cholesterol: Yes Chemotherapy: No Chest Pain: No Congestive Heart Failure: No COPD: No Cerebrovascular Accident: Yes (2016) Diabetes: No Diminished Hearing: No Endocrine: No Gastrointestinal Disorders: Yes (ANAL POUCH (ULCERTIVE COLITIS/ TOT. COLECTOMY) , ULCER HX) GERD: Yes Genitourinary: No Headaches: Yes Hepatitis: No Hiatal Hernia: No Hypertension: Yes Immune Disorder: No Implanted Vascular Access Dvce: Yes Kidney Stones: No Musculoskeletal: Yes ( NECK PAIN, ARTHRITIS) Neurologic: Yes (MENINGIOMAS, MENIER'S SYNDROME, BALANCE PROBLEMS SOMETIMES) Psychiatric: Yes Reproductive: Yes Respiratory: Yes (ASTHMA, PULOMARY EMBOLISM) Migraines: No Radiation Therapy: Yes (meningioma on head x5 treatments, stopped 02/2015) Renal Failure: No Seizures: Yes Sickle Cell Disease: No Sleep Apnea: No Thyroid Disease: No Menopausal: Yes : 4 Para: 3 Miscarriage: 1 Past Surgical History Abdominal Surgery: Yes (TOTAL COLLECTOMY/small bowel resection) AICD: No Body Medical Devices: teena from cholectomy, FOREIGN OBJECT IN HEAD FROM CRAINEOTOMY Cardiac Surgery: Yes (CARDIAC CATH NO STENTS ) Coronary Artery Bypass Graft: No Ear Surgery: No Endocrine Surgery: No Eye Surgery: Yes (CATARACT SX BILAT EYE) Genitourinary Surgery: No Gynecologic Surgery: Yes (NISSA with BSO) Hysterectomy: Yes Joint Replacement: No Neurologic Surgery: Yes (CRANIOTOMY =MENIGIOMA) Oral Surgery: Yes (tooth extraction) Pacemaker: No Thoracic Surgery: No Other Surgery: Yes (REMOVAL OF MENINGIOMA) Family History Family Myocardial Infarction: Yes (FATHER) Social History Alcohol Use: No ( ) Tobacco Use: No Substance Use: No Allergies-Medications (Allergen,Severity, Reaction): Coded Allergies: acetaminophen (Unverified Allergy, Severe, Itching, 03/01/17) hydrocodone (Unverified Allergy, Severe, Itching, 03/01/17) meperidine (Unverified Allergy, Severe, Nausea/Vomiting, 03/01/17) patient denies topiramate (Unverified Allergy, Unknown, INCREASED HEART RATE, 03/01/17) fluticasone (Unverified Adverse Reaction, Severe, RESP FAILURE, 02/09/17) DENIES RESP FAILURE STATES CHEST PRESSURE. fluticasone furoate (Unverified Adverse Reaction, Severe, RESP FAILURE, ) DENIES RESP FAILURE STATES CHEST PRESSURE. salmeterol (Unverified Adverse Reaction, Severe, RESP FAILURE, 02/09/17) DENIES RESP FAILURE STATES CHEST PRESSURE. Reported Meds & Prescriptions Reported Meds & Active Scripts Active Reported Mapap Extra Strength (Acetaminophen) 500 Mg Tab 1,000 Mg PO Q4-6H PRN Amoxicillin 500 Mg Cap 500 Mg PO TID Modafinil 100 Mg Tab 100 Mg PO DAILY Trileptal (Oxcarbazepine) 600 Mg Tab 600 Mg PO BID Verapamil HCl ER (Verapamil HCl) 120 Mg Cap PO Levothyroxine (Levothyroxine Sodium) 88 Mcg Tab 88 Mcg PO DAILY Nexium (Esomeprazole DR) 40 Mg Capdr 40 Mg PO DAILY Zofran (Ondansetron HCl) 4 Mg Tab 4 Mg PO Q6HR PRN Hydrocortisone 5 Mg Tab 5 Mg PO HS Take with food to decrease GI upset Hydrocortisone 5 Mg Tab 15 Mg PO DAILY Take with food to decrease GI upset Eliquis (Apixaban) 2.5 Mg Tab 2.5 Mg PO BID Lexapro (Escitalopram Oxalate) 20 Mg Tab 20 Mg PO DAILY Ventolin Hfa 18 GM Inh (Albuterol Sulfate) 90 Mcg/Act Aer 2 Puff INH Q6H PRN Atorvastatin (Atorvastatin Calcium) 20 Mg Tab 20 Mg PO HS Symbicort Inh (Budesonide/Formoterol Fumarate) 160-4.5 Mcg/Act Aero 2 Puff INH Q12HR Lorazepam 1 Mg Tab 1 Mg PO Q6H PRN Cyanocobalamin Inj (Cyanocobalamin) 1,000 Mcg/Ml Inj 1,000 Mcg IM Q30D E-400 (Vitamin E) 400 Unit Cap 400 Units PO DAILY Vitamin D3 (Cholecalciferol) 1,000 Unit Tab 1,000 Units PO DAILY Calcium (Oyster Shell) 500 Mg Tab 500 Mg PO DAILY Review of Systems Except as stated in HPI: all other systems reviewed are Neg Physical Exam Narrative GENERAL: 62yo F in mild distress. SKIN: Focused skin assessment warm/dry. HEAD: Atraumatic. Normocephalic. EYES: Pupils equal and round at 3mm bilaterally. EOMI. No scleral icterus. No injection or drainage. ENT: No nasal bleeding or discharge. Mucous membranes pink and moist. NECK: Trachea midline. No JVD. CARDIOVASCULAR: Regular rate and rhythm. No murmur appreciated. RESPIRATORY: No accessory muscle use. Clear to auscultation. Breath sounds equal bilaterally. GASTROINTESTINAL: Abdomen soft, non-tender, nondistended. No rebound tenderness or guarding. MUSCULOSKELETAL: No obvious deformities. No clubbing. No cyanosis. No edema. NEUROLOGICAL: Awake and alert. Decreased sensation in left V2, V3 distribution. Motor grossly within normal limits. Normal speech. PSYCHIATRIC: Appropriate mood and affect; insight and judgment normal. Data Data Last Documented VS Vital Signs Date Time Temp Pulse Resp B/P (MAP) Pulse Ox O2 Delivery O2 Flow Rate FiO2 03/01/17 17:46 78 16 127/67 (87) 95 Room Air 03/01/17 14:54 98.2 Orders Orders Electrocardiogram (03/01/17 ) Ct Brain W/O Iv Contrast(Rout) (03/01/17 ) Complete Blood Count With Diff (03/01/17 15:19) Basic Metabolic Panel (Bmp) (03/01/17 15:19) Prothrombin Time / Inr (Pt) (03/01/17 15:19) Act Partial Throm Time (Ptt) (03/01/17 15:19) Trileptal (Oxycarbazapine) (03/01/17 15:24) Meclizine (Antivert) (03/01/17 17:15) Ondansetron Inj (Zofran Inj) (03/01/17 17:15) Admit Order (Ed Use Only) (03/01/17 19:30) Labs Laboratory Tests Test 03/01/17 15:20 03/01/17 16:00 White Blood Count 8.4 TH/MM3 Red Blood Count 4.43 MIL/MM3 Hemoglobin 12.6 GM/DL Hematocrit 39.6 % Mean Corpuscular Volume 89.4 FL Mean Corpuscular Hemoglobin 28.4 PG Mean Corpuscular Hemoglobin Concent 31.8 % Red Cell Distribution Width 15.6 % Platelet Count 340 TH/MM3 Mean Platelet Volume 7.5 FL Neutrophils (%) (Auto) 75.7 % Lymphocytes (%) (Auto) 13.7 % Monocytes (%) (Auto) 8.9 % Eosinophils (%) (Auto) 1.1 % Basophils (%) (Auto) 0.6 % Neutrophils # (Auto) 6.4 TH/MM3 Lymphocytes # (Auto) 1.1 TH/MM3 Monocytes # (Auto) 0.7 TH/MM3 Eosinophils # (Auto) 0.1 TH/MM3 Basophils # (Auto) 0.0 TH/MM3 CBC Comment DIFF FINAL Differential Comment Prothrombin Time 10.0 SEC Prothromb Time International Ratio 0.9 RATIO Activated Partial Thromboplast Time 23.0 SEC Blood Urea Nitrogen 14 MG/DL Creatinine 0.86 MG/DL Random Glucose 102 MG/DL Calcium Level 8.5 MG/DL Sodium Level 141 MEQ/L Potassium Level 4.2 MEQ/L Chloride Level 109 MEQ/L Carbon Dioxide Level 26.5 MEQ/L Anion Gap 6 MEQ/L Estimat Glomerular Filtration Rate 67 ML/MIN [facility] Medical Decision Making Medical Screen Exam Complete: Yes Emergency Medical Condition: Yes Differential Diagnosis Hydrocephalus vs. meningioma vs. trileptal overdose Narrative Course 62yo F with meningioma presents to the ED with c/o worsening gait and left facial paresthesia. CT brain showed intraventricular mass right occipital horn causing minimal obstruction of the occipital horn, all stable in interval. Pt given meclizine and zofran for symptoms. Discussed with neurosurgeon Dr. Isbell who recommended pt follow up with her own neurosurgeon in [facility]. Pt reevaluated at bedside and is still dizzy. Pt is unable to ambulate and still feels dizzy. Pt has been taking her trileptal more than she is suppose to for the last 3 or 4 days because she didnt realize they were 600mg tablets. Oxcarbazepine level is still pending. Discussed with hospitalist Dr. Perez and accepted to his service. Diagnosis Primary Impression: Meningioma Patient Instructions: General Instructions Departure Forms: Tests/Procedures Additional Instructions: Please follow up with your neurosurgeon in [place] as soon as you can. Return to the ED if symptoms worsen. Med/Other Pt SpecificInfo: No Change to Meds Disposition: 01 DISCHARGE HOME Condition: Stable Dalia Begum DO Mar 01, 2017 15:49
[2017-03-01 15:51] LABS: AUTOMATED NEUTROPHIL # 6.4 TH/MM3 (1.8-7.7); BASOPHIL % 0.6 % (0.0-2.0); EOSINOPHIL # 0.1 TH/MM3 (0-0.4); EOSINOPHIL % 1.1 % (0.0-4.0); HEMATOCRIT 39.6 % (35.0-46.0); HEMO FLAGS DIFF FINAL; LYMPH % 13.7 % (9.0-44.0); LYMPHOCYTE # 1.1 TH/MM3 (1.0-4.8); MEAN CELL VOLUME 89.4 FL (80.0-100.0); MEAN CORPUSCULAR HEMOGLOBIN 28.4 PG (27.0-34.0); MEAN CORPUSCULAR HGB CONC 31.8 % (32.0-36.0); MONO % 8.9 % (0.0-8.0); NEUT % 75.7 % (16.0-70.0); PLATELET COUNT 340 TH/MM3 (150-450); RED BLOOD COUNT 4.43 MIL/MM3 (4.00-5.30); RED CELL DISTRIBUTION WIDTH 15.6 % (11.6-17.2); WHITE BLOOD COUNT 8.4 TH/MM3 (4.0-11.0)
[2017-03-01 16:02] LABS: INTERNATIONAL NORMALIZED RATIO 0.9 RATIO
[2017-03-01 16:06] LABS: BICARBONATE 26.5 MEQ/L (21.0-32.0); POTASSIUM 4.2 MEQ/L (3.5-5.1)
--- NOTE | 2017-03-01 16:29 | RADRPT ---
EXAM DATE/TIME: 03/01/2017 16:17 [place] calcified intraventricular mass right occipital horn stable in the interval. OMPARISON: MRI BRAIN W & W/O CONTRAST, February 26, 2016, 10:39. CT BRAIN W/O CONTRAST, February 26, 2016, 4:30. INDICATIONS : Dizziness and loss of balance. History of meningioma. RADIATION DOSE: 32.35 CTDIvol (mGy) MEDICAL HISTORY : Seizures. Cardiovascular disease SURGICAL HISTORY : Removal of meningioma. ENCOUNTER: Initial ACUITY: 1 day PAIN SCALE: 5/10 LOCATION: cranial TECHNIQUE: Multiple contiguous axial images were obtained of the head. Using automated exposure control and adj ustment of the mA and/or kV according to patient size, radiation dose was kept as low as reasonably a chievable to obtain optimal diagnostic quality images. DICOM format image data is available electro nically for review and comparison. FINDINGS: CEREBRUM: The study is abnormal with the calcified intraventricular mass right occipital horn measuring 2.1 cm x 1.6 cm. This is causing minimal obstruction of the occipital horn; all stable in the interval. Th e left hemisphere is unremarkable. There are no extra-axial fluid collections appreciated. POSTERIOR FOSSA: The cerebellum and brainstem are intact. The 4th ventricle is midline. The cerebellopontine angle i s unremarkable. EXTRACRANIAL: The visualized portion of the orbits is intact. SKULL: The calvaria is intact. No evidence of skull fracture. Impression Stable CT scan of the head. Cristopher Thrasher MD FACR on March 01, 2017 at 16:24 Board Certified Radiologist. This report was verified electronically.
[2017-03-01] MEDS ORDERED: ONDANSETRON HCL 4 MG/2 ML VIAL IV PUSH ONE (17:15)
[2017-03-01] MEDS ORDERED: MECLIZINE HCL 25 MG TAB PO ONE (17:15)
[2017-03-01 17:46] VITALS: BP 127/67; PULSE 78; RESP 16; O2SAT 95
[2017-03-01 19:34] VITALS: BP 162/79; PULSE 82; RESP 20; O2SAT 95
[2017-03-01] MEDS ORDERED: ALBUTEROL SULFATE 90 MCG/ACT HFA 8 GM INHALER INH PRN (21:15)
[2017-03-01] MEDS ORDERED: NALOXONE HCL 0.4 MG/ML AMP IV PRN (21:15)
[2017-03-01] MEDS ORDERED: ONDANSETRON HCL 4 MG/2 ML VIAL IVP PRN (21:15)
[2017-03-01] MEDS ORDERED: ENALAPRILAT 1.25 MG/ML VIAL IV PUSH PRN (21:30)
[2017-03-01] MEDS ORDERED: PILL SPLITTER OTHER PRN (21:30)
[2017-03-01] MEDS ORDERED: CYANOCOBALAMIN 1000 MCG/ML VIAL IM SCH (22:00)
[2017-03-01] MEDS ORDERED: HYDROCORTISONE 10 MG TAB PO ONE (22:15)
[2017-03-01] MEDS ORDERED: APIXABAN 2.5 MG TABLET PO ONE (22:15)
[2017-03-01] MEDS ORDERED: ATORVASTATIN 20 MG TAB PO ONE (22:15)
[2017-03-01 22:46] VITALS: BP 138/68; PULSE 74; RESP 19; TEMP 99.6; O2SAT 95
[2017-03-01 23:46] VITALS: PULSE 79
--- NOTE | 2017-03-02 00:20 | HHI.HP ---
[facility] Primary [facility] Physician Shyanne Ortiz M.D. Admission Diagnosis Unstable gait Diagnoses: Chief Complaint: Dizziness and imbalance Travel History International Travel<30 Days: No Contact w/Intl Traveler <30 Da: No Traveled to Known Affected Are: No History of Present Illness 62 years old female with past medical history of meningioma in the brain, SVT and asthma presented to the ED complaining of few days worsening of dizziness and imbalance patient had had a meningioma in the right cavernous sinus removed in [facility] she is currently followed by a neurosurgeon in [place] and she sees Dr. Riley for seizure. Patient deny headache blurry vision short of breath chest pain fever or chills abdominal pain dysuria urgency or frequency. The patient just told us and remember it that she has been taking double the dose of her Trileptal by mistake which if it's true it can explain her symptom of dizziness and imbalance Review of Systems Except as stated in HPI: all other systems reviewed are Neg All systems reviewed and was positive for what is mentioned in history of present illness otherwise negative Past Family Social History Past Medical History Asthma Anxiety PTSD SVT Anal pouch ulcerative colitis GERD Hypertension Pulmonary embolism Hypercholesterolemia disease Balance problems sometimes Total colectomy small bowel resection Cardiac catheter no stenting Craniotomy removal of meningioma Cataract Past Surgical History As above Allergies: Coded Allergies: acetaminophen (Unverified Allergy, Severe, Itching, 03/01/17) hydrocodone (Unverified Allergy, Severe, Itching, 03/01/17) meperidine (Unverified Allergy, Severe, Nausea/Vomiting, 03/01/17) patient denies topiramate (Unverified Allergy, Unknown, INCREASED HEART RATE, 03/01/17) fluticasone (Unverified Adverse Reaction, Severe, RESP FAILURE, 02/09/17) DENIES RESP FAILURE STATES CHEST PRESSURE. fluticasone furoate (Unverified Adverse Reaction, Severe, RESP FAILURE, ) DENIES RESP FAILURE STATES CHEST PRESSURE. salmeterol (Unverified Adverse Reaction, Severe, RESP FAILURE, 02/09/17) DENIES RESP FAILURE STATES CHEST PRESSURE. Family History Father had PA Social History Denied tobacco alcohol or illicit drug abuse Physical Exam Vital Signs Vital Signs Date Time Temp Pulse Resp B/P (MAP) Pulse Ox O2 Delivery O2 Flow Rate FiO2 03/01/17 23:46 79 03/01/17 22:46 99.6 74 19 138/68 (91) 95 03/01/17 22:14 03/01/17 19:34 82 20 162/79 (106) 95 Room Air 03/01/17 17:46 78 16 127/67 (87) 95 Room Air 03/01/17 15:07 Room Air 03/01/17 15:01 85 18 159/81 (107) 96 03/01/17 14:54 98.2 94 24 147/80 (102) 95 Room Air Physical Exam GENERAL: This is a well-nourished, well-developed patient, in no apparent distress. SKIN: No rashes, warm and dry HEAD: Atraumatic. Normocephalic. EYES: Pupils equal round and reactive. Extraocular motions intact. No scleral icterus. ENT: Nose without bleeding, or drainage, Airway patent. NECK: Trachea midline. Supple CARDIOVASCULAR: Regular rate and rhythm without murmurs, gallops, or rubs. RESPIRATORY: Fair air entry bilaterally. No wheezes, rales, or rhonchi. GASTROINTESTINAL: Abdomen soft, non-tender, nondistended. Positive bowel sounds MUSCULOSKELETAL: Extremities without clubbing, cyanosis, or edema. Pedal pulses appreciated NEUROLOGICAL: Awake and alert. Cranial nerves II through XII intact. Motor and sensory grossly within normal limits. Five out of 5 muscle strength in all muscle groups. Normal speech. Laboratory Laboratory Tests Test 03/01/17 15:20 03/01/17 16:00 White Blood Count 8.4 Red Blood Count 4.43 Hemoglobin 12.6 Hematocrit 39.6 Mean Corpuscular Volume 89.4 Mean Corpuscular Hemoglobin 28.4 Mean Corpuscular Hemoglobin Concent 31.8 Red Cell Distribution Width 15.6 Platelet Count 340 Mean Platelet Volume 7.5 Neutrophils (%) (Auto) 75.7 Lymphocytes (%) (Auto) 13.7 Monocytes (%) (Auto) 8.9 Eosinophils (%) (Auto) 1.1 Basophils (%) (Auto) 0.6 Neutrophils # (Auto) 6.4 Lymphocytes # (Auto) 1.1 Monocytes # (Auto) 0.7 Eosinophils # (Auto) 0.1 Basophils # (Auto) 0.0 CBC Comment DIFF FINAL Differential Comment Prothrombin Time 10.0 Prothromb Time International Ratio 0.9 Activated Partial Thromboplast Time 23.0 Blood Urea Nitrogen 14 Creatinine 0.86 Random Glucose 102 Calcium Level 8.5 Sodium Level 141 Potassium Level 4.2 Chloride Level 109 Carbon Dioxide Level 26.5 Anion Gap 6 Estimat Glomerular Filtration Rate 67 Result Diagram: 03/01/17 1520 03/01/17 1520 Caprini VTE Risk Assessment Caprini VTE Risk Assessment: Mod/High Risk (score >= 2) Caprini Risk Assessment Model Point Value = 1 Point Value = 2 Point Value = 3 Point Value = 5 Age 41-60 Minor surgery BMI > 25 kg/m2 Swollen legs Varicose veins or History of unexplained or recurrent spontaneous Oral contraceptives or hormone replacement Sepsis (< 1 month) Serious lung disease, including pneumonia (< 1 month) Abnormal pulmonary function Acute myocardial infarction Congestive heart failure (< 1 month) History of inflammatory bowel disease Medical patient at bed rest Age 61-74 Arthroscopic surgery Major open surgery (> 45 min) Laparoscopic surgery (> 45 min) Malignancy Confined to bed (> 72 hours) Immobilizing plaster cast Central venous access Age >= 75 History of VTE Family history of VTE Factor V Leiden Prothrombin [id number] Lupus anticoagulant Anticardiolipin antibodies Elevated serum homocysteine Heparin-induced thrombocytopenia Other congenital or acquired thrombophilia Stroke (< 1 month) Elective arthroplasty Hip, pelvis, or leg fracture Acute spinal cord injury (< 1 month) Prophylaxis Regimen Total Risk Factor Score Risk Level Prophylaxis Regimen 0-1 Low Early ambulation 2 Moderate Order ONE of the following: *Sequential Compression Device (SCD) *Heparin 5000 units SQ BID 3-4 Higher Order ONE of the following medications: *Heparin 5000 units SQ TID *Enoxaparin/Lovenox 40 mg SQ daily (WT < 150 kg, CrCl > 30 mL/min) *Enoxaparin/Lovenox 30 mg SQ daily (WT < 150 kg, CrCl > 10-29 mL/min) *Enoxaparin/Lovenox 30 mg SQ BID (WT < 150 kg, CrCl > 30 mL/min) AND/OR *Sequential Compression Device (SCD) 5 or more Highest Order ONE of the following medications: *Heparin 5000 units SQ TID (Preferred with Epidurals) *Enoxaparin/Lovenox 40 mg SQ daily (WT < 150 kg, CrCl > 30 mL/min) *Enoxaparin/Lovenox 30 mg SQ daily (WT < 150 kg, CrCl > 10-29 mL/min) *Enoxaparin/Lovenox 30 mg SQ BID (WT < 150 kg, CrCl > 30 mL/min) AND *Sequential Compression Device (SCD) Assessment and Plan Assessment and Plan 62 years old female with history of meningioma status post craniotomy and removal came with -Worsening dizziness and imbalance> high possibility of Trileptal toxicity, hold Trileptal, he sent for a level still pending, half-life of the parent medication 2 hours and metabolite is 9 hours, continue neuro checks, antiemetic , meclizine, serial monitoring of the Trileptal, CT head of the brain reviewed by me within normal limits -History of meningioma in the brain status post removal -H/O pouchitis>> continue hydrocortisone -Hypothyroidism>> continue Synthroid -Hyperlipidemia> continue statin -dvt proph scd, on apixaban Marlene Perez MD Mar 02, 2017 00:20
[2017-03-02] MEDS: SODIUM CHLOR 0.9% 1000 ML INJ 1,000 ML IV SCH ×3 (00:21→18:00)
[2017-03-02 03:24] VITALS: PULSE 106
[2017-03-02 03:31] VITALS: BP 139/79; PULSE 85; RESP 19; TEMP 97.9; O2SAT 95
[2017-03-02] MEDS: LEVOTHYROXINE SODIUM 88 MCG TAB PO SCH (06:17)
[2017-03-02 06:40] LABS: AUTOMATED NEUTROPHIL # 4.1 TH/MM3 (1.8-7.7); BASOPHIL % 0.5 % (0.0-2.0); EOSINOPHIL # 0.1 TH/MM3 (0-0.4); EOSINOPHIL % 2.1 % (0.0-4.0); HEMATOCRIT 37.8 % (35.0-46.0); HEMO FLAGS DIFF FINAL; LYMPH % 23.4 % (9.0-44.0); LYMPHOCYTE # 1.5 TH/MM3 (1.0-4.8); MEAN CELL VOLUME 89.3 FL (80.0-100.0); MEAN CORPUSCULAR HEMOGLOBIN 28.8 PG (27.0-34.0); MEAN CORPUSCULAR HGB CONC 32.2 % (32.0-36.0); MONO % 11.6 % (0.0-8.0); NEUT % 62.4 % (16.0-70.0); PLATELET COUNT 284 TH/MM3 (150-450); RED BLOOD COUNT 4.23 MIL/MM3 (4.00-5.30); RED CELL DISTRIBUTION WIDTH 15.6 % (11.6-17.2); WHITE BLOOD COUNT 6.6 TH/MM3 (4.0-11.0)
[2017-03-02 07:12] LABS: BICARBONATE 26.7 MEQ/L (21.0-32.0)
[2017-03-02 07:31] VITALS: BP 119/58; PULSE 81; RESP 16; TEMP 98; O2SAT 94
[2017-03-02] MEDS: BUDESONIDE-FORMOTEROL 160/4.5 MCG INHALER INH SCH ×2 (08:34→20:27)
[2017-03-02] MEDS: CALCIUM CARBONATE 1.25 GM (CA 500 MG) TAB PO SCH (08:35)
[2017-03-02] MEDS: HYDROCORTISONE 10 MG TAB PO SCH (08:35)
[2017-03-02] MEDS: CHOLECALCIFEROL (VIT D3) 1000 UNIT TAB PO SCH (08:35)
[2017-03-02] MEDS: PANTOPRAZOLE SOD 40 MG DELAYED RELEASE TAB PO SCH (08:35)
[2017-03-02] MEDS: ESCITALOPRAM OXALATE 20 MG TAB PO SCH (08:35)
[2017-03-02] MEDS: APIXABAN 2.5 MG TABLET PO SCH ×2 (08:37→20:28)
[2017-03-02] MEDS ORDERED: NON-FORMULARY DRUG (Esomeprazole DR (Nexium) 40 MG) PO SCH (09:00)
[2017-03-02 11:11] VITALS: BP 133/61; PULSE 88; RESP 18; TEMP 98.5; O2SAT 94
[2017-03-02] MEDS ORDERED: OXcarbazepine 600 MG TAB PO SCH (11:15)
[2017-03-02] MEDS ORDERED: oxyCODONE/ACETAMINOPHEN 5 MG/325 MG TAB PO PRN (11:15)
--- NOTE | 2017-03-02 11:27 | HHI.PR ---
Subjective Remarks Follow up for dizziness, gait instability, headache, with hx of meningiomas. The patient reports a diffuse global headache with radiation into the occipital area, associated with photophobia but no nausea/vomiting. She states her dizziness has improved. She is very concerned that her trileptal has been held and is requesting this be restarted. She reports having a brain MRI done 4 weeks ago, last saw neurosurgeon at [facility] weeks ago, told she has a lesion around the right optic nerve and another intraventicular lesion that is almost completely blocking and may cause hydrocephalus. She states if anything needs to be done, she wants to be transferred to [facility]. Objective Vitals Vital Signs Date Time Temp Pulse Resp B/P (MAP) Pulse Ox O2 Delivery O2 Flow Rate FiO2 03/02/17 11:11 98.5 88 18 133/61 (85) 94 03/02/17 07:31 98.0 81 16 119/58 (78) 94 03/02/17 06:20 21 03/02/17 03:31 97.9 85 19 139/79 (99) 95 03/02/17 03:24 106 03/01/17 23:46 79 03/01/17 22:46 99.6 74 19 138/68 (91) 95 03/01/17 22:14 03/01/17 19:34 82 20 162/79 (106) 95 Room Air 03/01/17 17:46 78 16 127/67 (87) 95 Room Air 03/01/17 15:07 Room Air 03/01/17 15:01 85 18 159/81 (107) 96 03/01/17 14:54 98.2 94 24 147/80 (102) 95 Room Air Result Diagram: 03/02/17 0533 03/02/17 0533 Objective Remarks GENERAL: Well-nourished, well-developed middle aged female patient in [facility]. SKIN: Warm and dry. No rash. HEENT: Normocephalic. Atraumatic.Pupils equal and round. Mucous membranes pink and moist. CARDIOVASCULAR: Regular rate and rhythm. S1, S2 noted. No murmur appreciated. RESPIRATORY: No accessory muscle use. Clear to auscultation. Breath sounds equal bilaterally. GASTROINTESTINAL: Abdomen soft, non-tender, nondistended. Normoactive bowel sounds x4. MUSCULOSKELETAL: No obvious deformities. Extremities without clubbing, cyanosis , or edema. NEUROLOGICAL: Awake and alert. No obvious cranial nerve deficits. Motor grossly within normal limits. Normal speech. PSYCHIATRIC: Appropriate mood and affect; insight and judgment normal. Medications and IVs Current Medications Medications (Trade) Dose Ordered Sig/Sb Route Start Time Stop Time Status Last Admin Sodium Chloride 1,000 ml @ 100 mls/hr Q10H IV 03/01/17 22:00 03/02/17 08:34 (Zofran Inj) 4 mg Q6H PRN IVP 03/01/17 21:15 (Narcan Inj) 0.4 mg UNSCH PRN IV 03/01/17 21:15 (Proair Hfa Inh) 2 puff Q6H PRN INH 03/01/17 21:15 (Eliquis) 2.5 mg BID PO 03/02/17 09:00 03/02/17 08:37 (Lipitor) 20 mg HS PO 03/02/17 21:00 (Symbicort 160-4.5 Inh) 2 puff Q12HR INH 03/02/17 09:00 03/02/17 08:34 (Vitamin D3) 1,000 units DAILY PO 03/02/17 09:00 03/02/17 08:35 (Vitamin B12 Inj) 1,000 mcg Q30D IM 03/01/17 22:00 (Lexapro) 20 mg DAILY PO 03/02/17 09:00 03/02/17 08:35 (Cortef) 5 mg HS PO 03/02/17 21:00 (Cortef) 15 mg DAILY PO 03/02/17 09:00 03/02/17 08:35 (Synthroid) 88 mcg DAILY@0600 PO 03/02/17 06:00 03/02/17 06:17 (Oscal) 500 mg DAILY PO 03/02/17 09:00 03/02/17 08:35 (Pill Splitter) 1 ea UNSCH PRN OTHER 03/01/17 21:30 (Vasotec Inj) 1.25 mg Q6H PRN IV PUSH 03/01/17 21:30 (Protonix) 40 mg DAILY PO 03/02/17 09:00 03/02/17 08:35 (Tylenol) 650 mg Q4H PRN PO 03/02/17 11:00 UNV (Trileptal) 600 mg BID PO 03/02/17 11:15 UNV (Percocet 5-325 Mg) 1 tab Q6H PRN PO 03/02/17 11:15 UNV A/P Assessment and Plan 62 years old female with history of meningioma status post resection and radiation, presents with: Headache, Dizziness, and Gait Instability with hx of Meningiomas s/p Resection and Radiation: possibly secondary to patient accidentally taking double her Trileptal dosing x3days vs worsening meningioma. Head CT images reviewed, abnormal with calcified intraventricular mass right occipital horn measuring 2.1 cm x 1.6 cm causing minimal obstruction of the occipital horn; all stable in the interval; no extra-axial fluid collections appreciated. -Trileptal initially held, dizziness improving, however patient requesting trileptal be restarted due to her high risk of seizures. -Trileptal level pending. -Continue neuro checks, seizure precautions -Continue antiemetics prn, meclizine prn, tylenol and percocet prn pain -Consult neurology, known to Dr. 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 Wendy Bar PA-C Mar 02, 2017 11:27 am
--- NOTE | 2017-03-02 13:35 | MB ---
cc: SANDRA SANZ DATE OF CONSULTATION 03/02/2017 REASON FOR CONSULTATION "Headache, dizziness, history of meningioma status post resection." HISTORY OF PRESENT ILLNESS Ms. Peck is a 62-year-old female with a past medical history of brain meningioma, status post resection at [facility] in 2013. A follow-up in 2014 where she had a stroke and seizure. She was seen by Dr. Martinez and Dr. Riley at [facility] and then she was referred to [facility] for 42 sessions of radiation and she follows up with the Neurosurgery Units at [place]. She was found to have a right posterior horn meningioma since then and no further intervention was recommended and currently she is on oxcarbazepine 600 mg twice daily. Denies any further seizures activities and she states it was only the one seizure that she had in 2014. She complains of chronic double vision and photophobia with occasional numbness of the face and she was told that there is right cavernous sinus meningioma extension. The patient states that accidentally she started taking 1200 mg twice daily for three days before she realized that she was taking double her daily dose of 600 mg twice daily and since Wednesday she felt dizzy,lightheaded, imbalanced with nausea. Hence she reported to [facility] Emergency Room. REVIEW OF SYSTEMS A 12-point review of systems is negative except what is stated in the HPI. PAST MEDICAL HISTORY 1. Asthma. 2. Anxiety. 3. PTSD. 4. SVT. 5. Ulcerative colitis. 6. GERD. 7. Hypertension. 8. Pulmonary embolism. 9. Hypercholesterolemia. 10. Total colectomy. 11. Cardiac catheterization. 12. Craniotomy with removal of meningioma. 13. Cataracts. PAST SURGICAL HISTORY 1. Craniotomy for removal of meningioma. 2. Cardiac catheterization. 3. Cataract surgery. 4. Bowel resection. ALLERGIES ACETAMINOPHEN. HYDROCODONE. MEPERIDINE. TOPIRAMATE. FLUTICASONE. SALMETEROL. FAMILY HISTORY Father with myocardial infarction. SOCIAL HISTORY Denies tobacco, alcohol or illicit drug abuse. PHYSICAL EXAMINATION GENERAL: Awake, alert, oriented. Wears sunglasses because she is photophobic/ chronic. HEENT: Atraumatic, normocephalic. Intact vision. Intact hearing. NECK: Trachea in the midline. Supple. No signs of meningeal irrigation. CARDIOVASCULAR: Regular rate and rhythm. RESPIRATORY: Clear to auscultation, no wheezes. GASTROINTESTINAL: Soft abdomen. No tenderness. MUSCULOSKELETAL: No cyanosis, clubbing or edema. Moves all extremities equally. NEUROLOGICAL: Awake alert, oriented to time, person and place. No dysphagia, no dysarthria. Cranial nerve II-XII are intact. Diplopia when looking to the extreme right and left/chronic. No nystagmus. Upper and lower extremities motor is 5/5. No abnormal movements. Normal tone. [id number] and heel-to- plunkett are intact with mild slowing of the left upper extremity. Sensation is intact throughout to pain, temperature and light touch. PSYCHOLOGICAL: Normal mood and behavior. No hallucinations. LABORATORY DATA White blood cell count 6.6, hemoglobin 12.2, MCV 89.3, platelets 284. Sodium 142 , potassium 4, chloride 109, anion gap 6, BUN 13, creatinine 0.86, calcium 8.8. Oxcarbazepine level is still pending. Coagulation: INR 0.9. DIAGNOSTIC IMAGING - CT head without contrast reveals calcified intraventricular mass right occipital horn, 2.1 x 1.6 cm, causing minimal obstruction of the occipital horn , all stable in the interval. The left hemisphere is unremarkable. No extra- axial fluid collection. No evidence of skull fracture. IMPRESSION: Stable CT scan of the head. DIAGNOSTIC IMPRESSION 1. Meningioma status post removal. 2. Oxcarbazepine accidental overdose. 3. Hypothyroidism. 4. Hyperlipidemia. 5. Seizures. 6. Seizure free for two years. PLAN 1. Neuro checks q. 4 hours. 2. Oxcarbazepine was held for 24 hours and oxcarbazepine level is still pending , this may take some time, so we can resume oxcarbazepine at a small dose of 300 mg twice daily starting from tonight and monitor the patient clinically. 3. Follow up sodium daily. 4. Seizure precautions. 5. Fall precautions. 6. DVT prophylaxis. Thank you for the opportunity to participate in the care of your patient. MD LISA Cordova/ROBERT /12:59 PM /1:08 PM VERA
--- NOTE | 2017-03-02 13:49 | EKG ---
Date Performed: 03/01/2017 Time Performed: 15:08:26 PTAGE: 62 years EKG: Sinus rhythm NORMAL ECG Compared to prior tracing no significant change PREVIOUS TRACING : 11/03/2016 12.51 DOCTOR: Godfrey Shafer Interpretating Date/Time 03/02/2017 13:46:58
[2017-03-02] MEDS: ACETAMINOPHEN 325 MG TAB PO PRN (18:13)
[2017-03-02 19:37] VITALS: BP 131/76; PULSE 83; RESP 16; TEMP 98.8; O2SAT 94
[2017-03-02 20:01] VITALS: PULSE 90
[2017-03-02] MEDS: OXcarbazepine 300 MG TAB PO SCH (20:28)
[2017-03-02] MEDS ORDERED: ATORVASTATIN 20 MG TAB PO SCH (21:00)
[2017-03-02] MEDS ORDERED: HYDROCORTISONE 10 MG TAB PO SCH (21:00)
[2017-03-03 00:01] VITALS: PULSE 90
[2017-03-03 00:31] VITALS: BP 123/69; PULSE 82; RESP 16; TEMP 97.6; O2SAT 92
[2017-03-03] MEDS: SODIUM CHLOR 0.9% 1000 ML INJ 1,000 ML IV SCH ×2 (01:43→14:00)
[2017-03-03 04:00] VITALS: PULSE 78
[2017-03-03 04:20] VITALS: BP 150/83; PULSE 77; RESP 16; TEMP 98; O2SAT 94
[2017-03-03] MEDS: LEVOTHYROXINE SODIUM 88 MCG TAB PO SCH (04:58)
[2017-03-03] MEDS: ACETAMINOPHEN 325 MG TAB PO PRN (04:58)
[2017-03-03 07:51] VITALS: O2SAT 93
[2017-03-03] MEDS: PANTOPRAZOLE SOD 40 MG DELAYED RELEASE TAB PO SCH (08:37)
[2017-03-03] MEDS: HYDROCORTISONE 10 MG TAB PO SCH (08:39)
[2017-03-03] MEDS: OXcarbazepine 300 MG TAB PO SCH (08:40)
[2017-03-03] MEDS: ESCITALOPRAM OXALATE 20 MG TAB PO SCH (08:40)
[2017-03-03] MEDS: CHOLECALCIFEROL (VIT D3) 1000 UNIT TAB PO SCH (08:40)
[2017-03-03] MEDS: CALCIUM CARBONATE 1.25 GM (CA 500 MG) TAB PO SCH (08:40)
[2017-03-03] MEDS: APIXABAN 2.5 MG TABLET PO SCH (08:41)
[2017-03-03] MEDS: BUDESONIDE-FORMOTEROL 160/4.5 MCG INHALER INH SCH (08:41)
[2017-03-03 12:16] VITALS: BP 147/79; PULSE 84; RESP 20; TEMP 98.2; O2SAT 95
--- NOTE | 2017-03-03 14:10 | HHI.DCPOC ---
Discharge Care Plan Diagnosis: (1) Accidental Trileptal Overdose Goals to Promote Your Health * To prevent worsening of your condition and complications * To maintain your health at the optimal level Directions to Meet Your Goals Take your medications as prescribed Follow your dietary instruction Follow activity as directed Keep your appointments as scheduled Take your immunizations and boosters as scheduled If your symptoms worsen call your PCP, if no PCP go to Urgent Care Center or Emergency Room Smoking is Dangerous to Your Health. Avoid second hand smoke Call the 24-hour hour crisis hotline for domestic abuse at Wendy Bar PA-C Mar 03, 2017 2:10 pm
--- NOTE | 2017-03-03 14:20 | HHI.PR ---
Subjective Remarks Follow up for dizziness, gait instability, headache, with suspect trileptal overdose. The patient feels completely back to normal today and wants to go home. She ambulated with physical therapy, denies any difficulty or gait abnormality. Denies any headache or dizziness today. She has no other medical complaints at this time. Objective Vitals Vital Signs Date Time Temp Pulse Resp B/P (MAP) Pulse Ox O2 Delivery O2 Flow Rate FiO2 03/03/17 12:16 98.2 84 20 147/79 (101) 95 03/03/17 07:51 93 21 03/03/17 04:20 98.0 77 16 150/83 (105) 94 03/03/17 04:00 78 03/03/17 03:37 21 03/03/17 00:31 97.6 82 16 123/69 (87) 92 03/03/17 00:01 90 03/02/17 20:01 90 03/02/17 19:37 98.8 83 16 131/76 (94) 94 I/O 03/02/17 03/02/17 03/02/17 03/03/17 03/03/17 03/03/17 07:00 15:00 23:00 07:00 15:00 23:00 Intake Total 1300 ml Balance 1300 ml Intake Oral 100 ml IV Total 1200 ml # Voids 1 2 # Bowel Movements 1 Result Diagram: 03/02/1753203/02/17532 Objective Remarks GENERAL: Well-nourished, well-developed middle aged female patient in [facility]. SKIN: Warm and dry. No rash. HEENT: Normocephalic. Atraumatic.Pupils equal and round. Mucous membranes pink and moist. CARDIOVASCULAR: Regular rate and rhythm. S1, S2 noted. No murmur appreciated. RESPIRATORY: No accessory muscle use. Clear to auscultation. Breath sounds equal bilaterally. GASTROINTESTINAL: Abdomen soft, non-tender, nondistended. Normoactive bowel sounds x4. MUSCULOSKELETAL: No obvious deformities. Extremities without clubbing, cyanosis , or edema. NEUROLOGICAL: Awake and alert. No obvious cranial nerve deficits. Motor grossly within normal limits. Normal speech. PSYCHIATRIC: Appropriate mood and affect; insight and judgment normal. Medications and IVs Current Medications Medications (Trade) Dose Ordered Sig/Sb Route Start Time Stop Time Status Last Admin Sodium Chloride 1,000 ml @ 100 mls/hr Q10H IV 03/01/17 22:00 03/03/17 01:43 (Zofran Inj) 4 mg Q6H PRN IVP 03/01/17 21:15 (Narcan Inj) 0.4 mg UNSCH PRN IV 03/01/17 21:15 (Proair Hfa Inh) 2 puff Q6H PRN INH 03/01/17 21:15 (Eliquis) 2.5 mg BID PO 03/02/17 09:00 03/03/17 08:41 (Lipitor) 20 mg HS PO 03/02/17 21:00 03/02/17 20:28 (Symbicort 160-4.5 Inh) 2 puff Q12HR INH 03/02/17 09:00 03/03/17 08:41 (Vitamin D3) 1,000 units DAILY PO 03/02/17 09:00 03/03/17 08:40 (Vitamin B12 Inj) 1,000 mcg Q30D IM 03/01/17 22:00 (Lexapro) 20 mg DAILY PO 03/02/17 09:00 03/03/17 08:40 (Cortef) 5 mg HS PO 03/02/17 21:00 03/02/17 20:28 (Cortef) 15 mg DAILY PO 03/02/17 09:00 03/03/17 08:39 (Synthroid) 88 mcg DAILY@0600 PO 03/02/17 06:00 03/03/17 04:58 (Oscal) 500 mg DAILY PO 03/02/17 09:00 03/03/17 08:40 (Pill Splitter) 1 ea UNSCH PRN OTHER 03/01/17 21:30 (Vasotec Inj) 1.25 mg Q6H PRN IV PUSH 03/01/17 21:30 (Protonix) 40 mg DAILY PO 03/02/17 09:00 03/03/17 08:37 (Tylenol) 650 mg Q4H PRN PO 03/02/17 11:00 03/03/17 04:58 (Percocet 5-325 Mg) 1 tab Q6H PRN PO 03/02/17 11:15 (Trileptal) 300 mg BID PO 03/02/17 21:00 9/6/17 08:40 A/P Assessment and Plan 62 years old female with history of meningioma status post resection and radiation, presents with: Headache, Dizziness, and Gait Instability with hx of Meningiomas s/p Resection and Radiation: strongly suspect secondary to patient accidentally taking double her Trileptal dosing x3days vs worsening meningioma. Head CT images reviewed, abnormal with calcified intraventricular mass right occipital horn measuring 2.1 cm x 1.6 cm causing minimal obstruction of the occipital horn; all stable in the interval; no extra-axial fluid collections appreciated. Patient follows with neurosurgeon at [facility] -Trileptal initially held, dizziness improving, restarted at half dosing 300mg bid -Trileptal level pending, not available at discharge, will follow up. 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
== END 2017-03-03 16:36 | disposition home or self-care (01) ==
LOC: NEPC 14:51 → NEDA 19:32 → NEPHCDU 22:21
PROVIDERS: ADMIT Hospitalist; ATTEND Hospitalist
DX: T50.901A Poisoning by unspecified drugs, medicaments and biological substances, accidental (unintentional), initial encounter (principal); R56.9 Unspecified convulsions; I47.1 Supraventricular tachycardia; I10 Essential (primary) hypertension; Z86.711 Personal history of pulmonary embolism; E78.5 Hyperlipidemia, unspecified; E03.9 Hypothyroidism, unspecified; Z86.011 Personal history of benign neoplasm of the brain; Z79.01 Long term (current) use of anticoagulants; Z86.73 Personal history of transient ischemic attack (TIA), and cerebral infarction without residual deficits
CPT/HCPCS: 70450; 80048; 80183; 82948; 85025; 85610; 85730; 93005; 96361; 96374; 97110; 97116; 97161; 99285; G0378; G8987; G8988; J2405; J7030

== ENCOUNTER → 2017-04-27 | Outpatient (CLI) | payer OTHER ==
[~2017-04-27] MED LIST changes: -LEVO75TA3 PO; +LEVO88TA2 PO; +MAPA500T13 PO; +MODA100T9 PO; -TRIL300T PO; +TRIL600T PO; +VERA120C PO
[2017-04-27 08:57] LABS: AUTOMATED NEUTROPHIL # 3.6 TH/MM3 (1.8-7.7); BASOPHIL # 0.1 TH/MM3 (0-0.2); BASOPHIL % 1.2 % (0.0-2.0); EOSINOPHIL # 0.1 TH/MM3 (0-0.4); EOSINOPHIL % 2.2 % (0.0-4.0); HEMATOCRIT 39.8 % (35.0-46.0); LYMPH % 31.9 % (9.0-44.0); LYMPHOCYTE # 2.1 TH/MM3 (1.0-4.8); MEAN CELL VOLUME 90.4 FL (80.0-100.0); MEAN CORPUSCULAR HEMOGLOBIN 29.6 PG (27.0-34.0); MEAN CORPUSCULAR HGB CONC 32.8 % (32.0-36.0); MEAN PLATELET VOLUME 7.5 FL (7.0-11.0); MONO % 10.1 % (0.0-8.0); MONOCYTE # 0.7 TH/MM3 (0-0.9); NEUT % 54.6 % (16.0-70.0); PLATELET COUNT 327 TH/MM3 (150-450); RED BLOOD COUNT 4.41 MIL/MM3 (4.00-5.30); RED CELL DISTRIBUTION WIDTH 15.2 % (11.6-17.2); WHITE BLOOD COUNT 6.6 TH/MM3 (4.0-11.0)
[2017-04-27 09:06] LABS: ALBUMIN 3.4 GM/DL (3.4-5.0); AST (GOT) 13 U/L (15-37); BICARBONATE 26.5 MEQ/L (21.0-32.0); BLOOD UREA NITROGEN 16 MG/DL (7-18); CALCIUM 8.9 MG/DL (8.5-10.1); CHLORIDE 107 MEQ/L (98-107); CREATININE 1.03 MG/DL (0.50-1.00); GLOMERULAR FILTRATION RATE 54 ML/MIN (>89); GLUCOSE,FASTING 86 MG/DL (74-99); SODIUM (NA) 140 MEQ/L (136-145)
[2017-04-27 09:07] LABS: ALT (GPT) 24 U/L (10-53); CHOLESTEROL 229 MG/DL (120-200); TRIGLYCERIDES 262 MG/DL (42-150)
[2017-04-27 09:16] LABS: ALKALINE PHOSPHATASE 111 U/L (45-117); CHOLESTEROL/ HDL RATIO 5.14 RATIO; HDL CHOLESTEROL 44.5 MG/DL (40.0-60.0); LDL CHOLESTEROL 132 MG/DL (0-99); TOTAL BILIRUBIN ADULT 0.4 MG/DL (0.2-1.0); TOTAL PROTEIN 6.5 GM/DL (6.4-8.2)
== END ==
LOC: OLAB 07:26
PROVIDERS: ATTEND Family Medicine
DX: E78.5 Hyperlipidemia, unspecified (principal); G43.909 Migraine, unspecified, not intractable, without status migrainosus; E03.8 Other specified hypothyroidism; M85.80 Other specified disorders of bone density and structure, unspecified site
CPT/HCPCS: 80053; 80061; 82306; 84439; 84443; 85025

== ENCOUNTER → 2017-06-08 | Outpatient (CLI) | payer OTHER ==
[~2017-06-08] MED LIST changes: +ADDE10 PO; +CALC12502 PO; -CALC500T35 PO; +CLON.5 PO; +HYDR10TA65 PO
== END ==
LOC: OLAB 07:37
PROVIDERS: ATTEND Internal Medicine
DX: J45.909 Unspecified asthma, uncomplicated (principal)
CPT/HCPCS: 87070; 87205

== ENCOUNTER 2017-06-14 12:26 | Inpatient (IN) | payer OTHER ==
[~2017-06-14] VITALS: Ht 165.1 cm; Wt 80.0 kg
[~2017-06-14 12:26] MED LIST changes: -ADDE10 PO; -CLON.5 PO; -HYDR10TA65 PO
[2017-06-14 12:28] VITALS: BP 134/80; PULSE 97; RESP 18; TEMP 99.2; O2SAT 96
[2017-06-14 12:33] VITALS: BP 143/89; PULSE 99; RESP 18; O2SAT 96
[2017-06-14] MEDS ORDERED: SODIUM CHLORIDE 0.9% FLUSH 10 ML FLUSH IV FLUSH PRN (12:45)
[2017-06-14] MEDS ORDERED: DEXAMETHASONE SOD PHOS 20 MG/5 ML VIAL IV PUSH ONE (12:45)
[2017-06-14 13:07] LABS: AUTOMATED NEUTROPHIL # 6.8 TH/MM3 (1.8-7.7); BASOPHIL % 0.5 % (0.0-2.0); EOSINOPHIL # 0.1 TH/MM3 (0-0.4); EOSINOPHIL % 0.9 % (0.0-4.0); HEMATOCRIT 38.2 % (35.0-46.0); HEMO FLAGS DIFF FINAL; LYMPH % 12.1 % (9.0-44.0); MEAN CELL VOLUME 89.2 FL (80.0-100.0); MEAN CORPUSCULAR HEMOGLOBIN 29.3 PG (27.0-34.0); MEAN CORPUSCULAR HGB CONC 32.8 % (32.0-36.0); MONO % 7.6 % (0.0-8.0); NEUT % 78.9 % (16.0-70.0); PLATELET COUNT 350 TH/MM3 (150-450); RED BLOOD COUNT 4.28 MIL/MM3 (4.00-5.30); RED CELL DISTRIBUTION WIDTH 15.5 % (11.6-17.2); WHITE BLOOD COUNT 8.7 TH/MM3 (4.0-11.0)
[2017-06-14 13:16] LABS: APTT (PATIENT) 23.8 SEC (24.3-30.1); PROTHROMBIN TIME - PATIENT 10.3 SEC (9.8-11.6)
[2017-06-14 13:24] LABS: ALT (GPT) 21 U/L (10-53); ANION GAP 6 MEQ/L (5-15); AST (GOT) 14 U/L (15-37); BLOOD UREA NITROGEN 14 MG/DL (7-18); CHLORIDE 111 MEQ/L (98-107); GLOMERULAR FILTRATION RATE 59 ML/MIN (>89); POTASSIUM 3.7 MEQ/L (3.5-5.1); SODIUM (NA) 144 MEQ/L (136-145)
[2017-06-14 13:33] LABS: ALKALINE PHOSPHATASE 93 U/L (45-117); TOTAL BILIRUBIN ADULT 0.3 MG/DL (0.2-1.0)
--- NOTE | 2017-06-14 14:46 | RADRPT ---
EXAM DATE/TIME: 06/14/2017 14:15 [place] COMPARISON: CT BRAIN W/O CONTRAST, February 26, 2016, 4:30. MRI BRAIN W & W/O CONTRAST, February 26, 2016, 10:39. CT BRAIN W/O CONTRAST, March 01, 2017, 16:17. INDICATIONS : Difficulty speaking today, off balance, meningioma history RADIATION DOSE: 31.51 CTDIvol (mGy) MEDICAL HISTORY : Meningioma. SURGICAL HISTORY : Hysterectomy. Craniotomy. ENCOUNTER: Initial ACUITY: 1 day PAIN SCALE: 0/10 LOCATION: cranial TECHNIQUE: Multiple contiguous axial images were obtained of the head. Using automated exposure control and adj ustment of the mA and/or kV according to patient size, radiation dose was kept as low as reasonably a chievable to obtain optimal diagnostic quality images. DICOM format image data is available electro nically for review and comparison. FINDINGS: Again seen are relatively high density lesions consistent with meningiomas. The largest involves the right lateral ventricle measuring 2.1 x 1.5 cm. Within the medial middle cranial fossa on the right t here is a 1.4 x 0.5 cm lesion. Both are stable. The remaining brain parenchyma shows normal attenuati on. No hemorrhage or acute infarction. No hydrocephaly. Prior right temporal craniotomy. Paranasal si nuses and mastoid air cells are clear. CONCLUSION: 1. No acute intracranial abnormality. 2. 2 stable meningiomas. Baudilio Bahena Jr., MD on June 14, 2017 at 14:35 Board Certified Radiologist. This report was verified electronically.
--- NOTE | 2017-06-14 14:53 | PD ---
HPI Chief Complaint: Neuro Symptoms/ Deficits Time Seen by Provider: 12:44 Travel History International Travel<30 days: No Contact w/Intl Traveler<30days: No Traveled to known affect area: No History of Present Illness HPI Patient is a 62-year-old female presents emergency department for evaluation of dysarthria as well as pain behind her left eye with left lateral gaze. Patient states she has a history of meningioma and it may be blocking her CSF passage. Patient states his symptoms started early this morning gradually worsening throughout the day. Denies any focalized weakness. She also states she is feeling fairly dizzy and mildly nauseous. She states that she is currently being tried to wean off of her Decadron by her physicians. Denies any head trauma, denies any seizure activity denies any vomiting. States symptoms are severe, gradually worsening, context as above, associated signs symptoms as above. PFSH Past Medical History Hx Anticoagulant Therapy: Yes (ELIQUIS) Asthma: Yes Blood Disorders: No Anxiety: Yes Depression: Yes (PTSD) Heart Rhythm Problems: Yes (SVT) Cancer: No Cardiac Catheterization: Yes Cardiovascular Problems: Yes High Cholesterol: Yes Chemotherapy: No Chest Pain: No Congestive Heart Failure: No COPD: No Cerebrovascular Accident: Yes (2016) Diabetes: No Diminished Hearing: No Endocrine: No Gastrointestinal Disorders: Yes (ANAL POUCH (ULCERTIVE COLITIS/ TOT. COLECTOMY) , ULCER HX) GERD: Yes Genitourinary: No Headaches: Yes Hepatitis: No Hiatal Hernia: No Hypertension: Yes Immune Disorder: No Implanted Vascular Access Dvce: Yes Kidney Stones: No Musculoskeletal: Yes (neck pain, arthritis) Neurologic: Yes (CVA,meningioma,meniers syndrome, SEIZURES) Psychiatric: Yes Reproductive: Yes Respiratory: Yes (ASTHMA,PE,) Migraines: No Radiation Therapy: Yes (X 5 MENINGIOMA) Renal Failure: No Seizures: Yes Sickle Cell Disease: No Sleep Apnea: No Thyroid Disease: No Tetanus Vaccination: < 5 Years Influenza Vaccination: No Menopausal: Yes : 4 Para: 3 Miscarriage: 1 Past Surgical History Abdominal Surgery: Yes (TOTAL COLLECTOMY/small bowel resection) AICD: No Body Medical Devices: MADELEINE FROM CCOLECTOMY,FB IN HEAD FROM CRANI Cardiac Surgery: Yes (CARDIAC CATH NO STENTS ) Coronary Artery Bypass Graft: No Ear Surgery: No Endocrine Surgery: No Eye Surgery: Yes (CATARACT SX BILAT EYE) Genitourinary Surgery: No Gynecologic Surgery: Yes (NISSA with BSO) Hysterectomy: Yes Joint Replacement: No Neurologic Surgery: Yes (CRANIOTOMY =MENIGIOMA) Oral Surgery: Yes (tooth extraction) Pacemaker: No Thoracic Surgery: No Other Surgery: Yes (REMOVAL OF MENINGIOMA) Family History Family Myocardial Infarction: Yes (FATHER) Social History Alcohol Use: No ( ) Tobacco Use: No Substance Use: No Allergies-Medications (Allergen,Severity, Reaction): Coded Allergies: hydrocodone (Unverified Allergy, Severe, Itching, 03/01/17) meperidine (Unverified Allergy, Severe, Nausea/Vomiting, 03/01/17) patient denies topiramate (Unverified Allergy, Unknown, INCREASED HEART RATE, 03/01/17) fluticasone (Unverified Adverse Reaction, Severe, RESP FAILURE, 02/09/17) DENIES RESP FAILURE STATES CHEST PRESSURE. fluticasone furoate (Unverified Adverse Reaction, Severe, RESP FAILURE, ) DENIES RESP FAILURE STATES CHEST PRESSURE. salmeterol (Unverified Adverse Reaction, Severe, RESP FAILURE, 02/09/17) DENIES RESP FAILURE STATES CHEST PRESSURE. Reported Meds & Prescriptions Reported Meds & Active Scripts Active Reported Mapap Extra Strength (Acetaminophen) 500 Mg Tab 1,000 Mg PO Q4-6H PRN Trileptal (Oxcarbazepine) 600 Mg Tab 600 Mg PO BID Verapamil HCl ER (Verapamil HCl) 120 Mg Cap PO Levothyroxine (Levothyroxine Sodium) 88 Mcg Tab 88 Mcg PO DAILY Nexium (Esomeprazole DR) 40 Mg Capdr 40 Mg PO DAILY Zofran (Ondansetron HCl) 4 Mg Tab 4 Mg PO Q6HR PRN Hydrocortisone 5 Mg Tab 5 Mg PO HS Take with food to decrease GI upset Hydrocortisone 5 Mg Tab 15 Mg PO DAILY Take with food to decrease GI upset Eliquis (Apixaban) 2.5 Mg Tab 2.5 Mg PO BID Lexapro (Escitalopram Oxalate) 20 Mg Tab 20 Mg PO DAILY Ventolin Hfa 18 GM Inh (Albuterol Sulfate) 90 Mcg/Act Aer 2 Puff INH Q6H PRN Atorvastatin (Atorvastatin Calcium) 20 Mg Tab 20 Mg PO HS Symbicort Inh (Budesonide/Formoterol Fumarate) 160-4.5 Mcg/Act Aero 2 Puff INH Q12HR Lorazepam 1 Mg Tab 1 Mg PO Q6H PRN Cyanocobalamin Inj (Cyanocobalamin) 1,000 Mcg/Ml Inj 1,000 Mcg IM Q30D E-400 (Vitamin E) 400 Unit Cap 400 Units PO DAILY Vitamin D3 (Cholecalciferol) 1,000 Unit Tab 1,000 Units PO DAILY Calcium (Oyster Shell) 500 Mg Tab 500 Mg PO DAILY Review of Systems Except as stated in HPI: all other systems reviewed are Neg Physical Exam Narrative GENERAL: Well-developed well-nourished, no obvious distress. SKIN: Focused skin assessment warm/dry. HEAD: Atraumatic. Normocephalic. EYES: Pupils equal and round. No scleral icterus. No injection or drainage. ENT: No nasal bleeding or discharge. Mucous membranes pink and moist. NECK: Trachea midline. No JVD. CARDIOVASCULAR: Regular rate and rhythm. No murmur appreciated. RESPIRATORY: No accessory muscle use. Clear to auscultation. Breath sounds equal bilaterally. GASTROINTESTINAL: Abdomen soft, non-tender, nondistended. Hepatic and splenic margins not palpable. MUSCULOSKELETAL: No obvious deformities. No clubbing. No cyanosis. No edema. NEUROLOGICAL: Awake and alert. Cranial nerves II through XII are grossly intact and nonfocal, 5 out of 5 strength in all 4 extremity's, patient does have stuttering speech and difficulty finding words from time to time. No receptive aphasia is appreciated, no ataxia appreciated centrally nor peripherally.. PSYCHIATRIC: Appropriate mood and affect; insight and judgment normal. Data Data Last Documented VS Vital Signs Date Time Temp Pulse Resp B/P (MAP) Pulse Ox O2 Delivery O2 Flow Rate FiO2 06/14/17 15:02 76 18 171/81 (111) 96 Room Air 06/14/17 12:28 99.2 Orders Orders Electrocardiogram (06/14/17 12:44) Complete Blood Count With Diff (06/14/17 12:44) Comprehensive Metabolic Panel (06/14/17 12:44) Prothrombin Time / Inr (Pt) (06/14/17 12:44) Act Partial Throm Time (Ptt) (06/14/17 12:44) Thyroid Stimulating Hormone (06/14/17 12:44) Urinalysis - C+S If Indicated (06/14/17 12:44) Ct Brain W/O Iv Contrast(Rout) (06/14/17 12:44) Blood Glucose (06/14/17 12:44) Ecg Monitoring (06/14/17 12:44) Iv Access Insert/Monitor (06/14/17 12:44) Oximetry (06/14/17 12:44) Sodium Chloride 0.9% Flush (Ns Flush) (06/14/17 12:45) Dexamethasone Inj (Decadron Inj) (06/14/17 12:45) Free T3 (06/14/17 14:49) Free Thyroxine (T4) (06/14/17 14:49) Consult Neurology (06/14/17 ) Admit Order (Ed Use Only) (06/14/17 ) Labs Laboratory Tests Test 06/14/17 12:50 White Blood Count 8.7 TH/MM3 Red Blood Count 4.28 MIL/MM3 Hemoglobin 12.5 GM/DL Hematocrit 38.2 % Mean Corpuscular Volume 89.2 FL Mean Corpuscular Hemoglobin 29.3 PG Mean Corpuscular Hemoglobin Concent 32.8 % Red Cell Distribution Width 15.5 % Platelet Count 350 TH/MM3 Mean Platelet Volume 7.2 FL Neutrophils (%) (Auto) 78.9 % Lymphocytes (%) (Auto) 12.1 % Monocytes (%) (Auto) 7.6 % Eosinophils (%) (Auto) 0.9 % Basophils (%) (Auto) 0.5 % Neutrophils # (Auto) 6.8 TH/MM3 Lymphocytes # (Auto) 1.0 TH/MM3 Monocytes # (Auto) 0.7 TH/MM3 Eosinophils # (Auto) 0.1 TH/MM3 Basophils # (Auto) 0.0 TH/MM3 CBC Comment DIFF FINAL Differential Comment Prothrombin Time 10.3 SEC Prothromb Time International Ratio 1.0 RATIO Activated Partial Thromboplast Time 23.8 SEC Blood Urea Nitrogen 14 MG/DL Creatinine 0.96 MG/DL Random Glucose 109 MG/DL Total Protein 6.4 GM/DL Albumin 3.1 GM/DL Calcium Level 8.8 MG/DL Alkaline Phosphatase 93 U/L Aspartate Amino Transf (AST/SGOT) 14 U/L Alanine Aminotransferase (ALT/SGPT) 21 U/L Total Bilirubin 0.3 MG/DL Sodium Level 144 MEQ/L Potassium Level 3.7 MEQ/L Chloride Level 111 MEQ/L Carbon Dioxide Level 27.0 MEQ/L Anion Gap 6 MEQ/L Estimat Glomerular Filtration Rate 59 ML/MIN Free Thyroxine 1.04 NG/DL Free Triiodothyronine (T3) pg/dL 2.98 PG/ML Thyroid Stimulating Hormone 3rd Gen 0.009 uIU/ML MDM Medical Decision Making Medical Screen Exam Complete: Yes Emergency Medical Condition: Yes Differential Diagnosis Cerebral edema, hydrocephalus, intracranial hemorrhage, acute stroke is possible. Narrative Course Patient roomed in emergency department, differential diagnosis as above she was taken a CAT scan, clear contraindications to TPA and further her symptoms sound more in line with cerebral edema versus blockage of the CSF tracts. Patient CAT scan does show meningioma in the right posterior horn of the lateral ventricle. Unchanged from previous but does appear to have some hydronephrosis proximal to the lesion. No cerebral edema seen. She was given Decadron in. Clear on arrival. Labs are otherwise unremarkable. Patient was discussed with Dr. Milton for admission and he is agreeable. Diagnosis Primary Impression: Dysarthria Additional Impression: Meningioma Admitting Information Admitting Physician Requests: Observation Condition: Stable Curtis Simon MD Jun 14, 2017 14:53
[2017-06-14 15:02] VITALS: BP 171/81; PULSE 76; RESP 18; O2SAT 96
[2017-06-14 15:40] LABS: FREE T3 2.98 PG/ML (2.18-3.98); FREE T4 1.04 NG/DL (0.76-1.46)
[2017-06-14] MEDS ORDERED: GADODIAMIDE PF 287 MG/ML 20 ML VIAL (for RAD MRI) IVCONTRAST ONE (16:56)
[2017-06-14 17:15] VITALS: BP 158/85; PULSE 88; RESP 18; O2SAT 95
--- NOTE | 2017-06-14 17:58 | HHI.HP ---
HPI [facility] Primary [facility] Physician No Primary Care Physician Admission Diagnosis Altered Mental status. Brain tumor. Diagnoses: (1) Balance problem Diagnosis: Principal (2) History of meningioma Diagnosis: Principal Chief Complaint: Changes in speech and balance Travel History International Travel<30 Days: No Contact w/Intl Traveler <30 Da: No Traveled to Known Affected Are: No History of Present Illness Written by Mitch Cortes, acting as scribe for Dr. Milton on 06/14/17 at 17: 58. 62-year-old female who presents to the ED with complaints of changes in speech along with balance initially began Wednesday of this week however worse since this morning. Patient has a past medical history of meningioma in the brain which was previously removed in [facility]. She continues to follow-up with neurosurgery at [facility] her regular neurologist is Dr. Riley. Patient reports that she has also been experiencing tremors in the past week along with the sensation of pins and needles in bilateral hands. She states that she began having issues on Wednesday with normal walking and felt as if her balance was off. She has also noted that she has small hand tremors, no noted weakness. She denies any headaches, nausea, vomiting, diarrhea. Does report photosensitivity which she has history of, she also has a history of blurred vision. Feels that her speech is changed and she has difficulty explaining things. Her is at bedside and hopes with provide some of her history. Review of Systems Eyes: COMPLAINS OF: Blurred vision Neurologic: COMPLAINS OF: Abnormal gait, Paresthesias, Speech Problems, Poor Balance Except as stated in HPI: all other systems reviewed are Neg Past Family Social History Past Medical History Meningioma SVT Asthma Anxiety PTSD Colitis with colectomy and reversal Pulmonary embolism History taken from patient and at bedside as well as from past hospitalizations. Past Surgical History Craniotomy with removal of meningioma Colectomy with colostomy and reversal Total hysterectomy Cataract surgery Past surgical history obtained from patient and at bedside as well as past hospitalizations Reported Medications Reported Meds & Active Scripts Active Reported Mapap Extra Strength (Acetaminophen) 500 Mg Tab 1,000 Mg PO Q4-6H PRN Trileptal (Oxcarbazepine) 600 Mg Tab 600 Mg PO BID Verapamil HCl ER (Verapamil HCl) 120 Mg Cap PO Levothyroxine (Levothyroxine Sodium) 88 Mcg Tab 88 Mcg PO DAILY Nexium (Esomeprazole DR) 40 Mg Capdr 40 Mg PO DAILY Zofran (Ondansetron HCl) 4 Mg Tab 4 Mg PO Q6HR PRN Hydrocortisone 5 Mg Tab 5 Mg PO HS Take with food to decrease GI upset Hydrocortisone 5 Mg Tab 15 Mg PO DAILY Take with food to decrease GI upset Eliquis (Apixaban) 2.5 Mg Tab 2.5 Mg PO BID Lexapro (Escitalopram Oxalate) 20 Mg Tab 20 Mg PO DAILY Ventolin Hfa 18 GM Inh (Albuterol Sulfate) 90 Mcg/Act Aer 2 Puff INH Q6H PRN Atorvastatin (Atorvastatin Calcium) 20 Mg Tab 20 Mg PO HS Symbicort Inh (Budesonide/Formoterol Fumarate) 160-4.5 Mcg/Act Aero 2 Puff INH Q12HR Lorazepam 1 Mg Tab 1 Mg PO Q6H PRN Cyanocobalamin Inj (Cyanocobalamin) 1,000 Mcg/Ml Inj 1,000 Mcg IM Q30D E-400 (Vitamin E) 400 Unit Cap 400 Units PO DAILY Vitamin D3 (Cholecalciferol) 1,000 Unit Tab 1,000 Units PO DAILY Calcium (Oyster Shell) 500 Mg Tab 500 Mg PO DAILY Allergies: Coded Allergies: hydrocodone (Unverified Allergy, Severe, Itching, 03/01/17) meperidine (Unverified Allergy, Severe, Nausea/Vomiting, 03/01/17) patient denies topiramate (Unverified Allergy, Unknown, INCREASED HEART RATE, 03/01/17) fluticasone (Unverified Adverse Reaction, Severe, RESP FAILURE, 02/09/17) DENIES RESP FAILURE STATES CHEST PRESSURE. fluticasone furoate (Unverified Adverse Reaction, Severe, RESP FAILURE, ) DENIES RESP FAILURE STATES CHEST PRESSURE. salmeterol (Unverified Adverse Reaction, Severe, RESP FAILURE, 02/09/17) DENIES RESP FAILURE STATES CHEST PRESSURE. Family History Father: Triple bypass Social History Tobacco: Denies Alcohol: Denies Illicit drug use: Denies 3 children Physical Exam Vital Signs Vital Signs Date Time Temp Pulse Resp B/P (MAP) Pulse Ox O2 Delivery O2 Flow Rate FiO2 06/14/17 17:15 88 18 158/85 (109) 95 Room Air 06/14/17 15:02 76 18 171/81 (111) 96 Room Air 06/14/17 12:38 92 18 96 Room Air 06/14/17 12:33 99 18 143/89 (107) 96 06/14/17 12:28 99.2 97 18 134/80 (98) 96 Room Air Physical Exam GENERAL: This is a well-nourished, well-developed patient, in no apparent distress. SKIN: No rashes, ecchymoses or lesions. Cool and dry. HEAD: Atraumatic. Normocephalic. No temporal or scalp tenderness. EYES: Pupils equal round and reactive. Extraocular motions intact. No scleral icterus. No injection or drainage. ENT: Nose without bleeding, purulent drainage or septal hematoma. Airway patent. NECK: Trachea midline. No JVD or lymphadenopathy. Supple, nontender, no meningeal signs. CARDIOVASCULAR: Regular rate and rhythm without murmurs, gallops, or rubs. RESPIRATORY: Clear to auscultation. Breath sounds equal bilaterally. No wheezes , rales, or rhonchi. GASTROINTESTINAL: Abdomen soft, non-tender, nondistended. No hepato-splenomegaly , or palpable masses. No guarding. MUSCULOSKELETAL: Extremities without clubbing, cyanosis, or edema. No joint tenderness, effusion, or edema noted. No calf tenderness. Negative Homans sign bilaterally. NEUROLOGICAL: Awake and alert. Cranial nerves II through XII intact. Motor and sensory grossly within normal limits. Five out of 5 muscle strength in all muscle groups. Normal speech. Laboratory Laboratory Tests Test 06/14/17 12:50 White Blood Count 8.7 Red Blood Count 4.28 Hemoglobin 12.5 Hematocrit 38.2 Mean Corpuscular Volume 89.2 Mean Corpuscular Hemoglobin 29.3 Mean Corpuscular Hemoglobin Concent 32.8 Red Cell Distribution Width 15.5 Platelet Count 350 Mean Platelet Volume 7.2 Neutrophils (%) (Auto) 78.9 Lymphocytes (%) (Auto) 12.1 Monocytes (%) (Auto) 7.6 Eosinophils (%) (Auto) 0.9 Basophils (%) (Auto) 0.5 Neutrophils # (Auto) 6.8 Lymphocytes # (Auto) 1.0 Monocytes # (Auto) 0.7 Eosinophils # (Auto) 0.1 Basophils # (Auto) 0.0 CBC Comment DIFF FINAL Differential Comment Prothrombin Time 10.3 Prothromb Time International Ratio 1.0 Activated Partial Thromboplast Time 23.8 Blood Urea Nitrogen 14 Creatinine 0.96 Random Glucose 109 Total Protein 6.4 Albumin 3.1 Calcium Level 8.8 Alkaline Phosphatase 93 Aspartate Amino Transf (AST/SGOT) 14 Alanine Aminotransferase (ALT/SGPT) 21 Total Bilirubin 0.3 Sodium Level 144 Potassium Level 3.7 Chloride Level 111 Carbon Dioxide Level 27.0 Anion Gap 6 Estimat Glomerular Filtration Rate 59 Free Thyroxine 1.04 Free Triiodothyronine (T3) pg/dL 2.98 Thyroid Stimulating Hormone 3rd Gen 0.009 Result Diagram: 06/14/17 1250 06/14/17 1250 Imaging Last Impressions Head CT 06/14/17 1244 Signed Impressions: Service Date/Time: Wednesday, June 14, 2017 14:15 - CONCLUSION: 1. No acute intracranial abnormality. 2. 2 stable meningiomas. MD Trevin Garces Jr. VTE Risk Assessment Caprini VTE Risk Assessment: Mod/High Risk (score >= 2) Caprini Risk Assessment Model Point Value = 1 Point Value = 2 Point Value = 3 Point Value = 5 Age 41-60 Minor surgery BMI > 25 kg/m2 Swollen legs Varicose veins or History of unexplained or recurrent spontaneous Oral contraceptives or hormone replacement Sepsis (< 1 month) Serious lung disease, including pneumonia (< 1 month) Abnormal pulmonary function Acute myocardial infarction Congestive heart failure (< 1 month) History of inflammatory bowel disease Medical patient at bed rest Age 61-74 Arthroscopic surgery Major open surgery (> 45 min) Laparoscopic surgery (> 45 min) Malignancy Confined to bed (> 72 hours) Immobilizing plaster cast Central venous access Age >= 75 History of VTE Family history of VTE Factor V Leiden Prothrombin [id number] Lupus anticoagulant Anticardiolipin antibodies Elevated serum homocysteine Heparin-induced thrombocytopenia Other congenital or acquired thrombophilia Stroke (< 1 month) Elective arthroplasty Hip, pelvis, or leg fracture Acute spinal cord injury (< 1 month) Prophylaxis Regimen Total Risk Factor Score Risk Level Prophylaxis Regimen 0-1 Low Early ambulation 2 Moderate Order ONE of the following: *Sequential Compression Device (SCD) *Heparin 5000 units SQ BID 3-4 Higher Order ONE of the following medications: *Heparin 5000 units SQ TID *Enoxaparin/Lovenox 40 mg SQ daily (WT < 150 kg, CrCl > 30 mL/min) *Enoxaparin/Lovenox 30 mg SQ daily (WT < 150 kg, CrCl > 10-29 mL/min) *Enoxaparin/Lovenox 30 mg SQ BID (WT < 150 kg, CrCl > 30 mL/min) AND/OR *Sequential Compression Device (SCD) 5 or more Highest Order ONE of the following medications: *Heparin 5000 units SQ TID (Preferred with Epidurals) *Enoxaparin/Lovenox 40 mg SQ daily (WT < 150 kg, CrCl > 30 mL/min) *Enoxaparin/Lovenox 30 mg SQ daily (WT < 150 kg, CrCl > 10-29 mL/min) *Enoxaparin/Lovenox 30 mg SQ BID (WT < 150 kg, CrCl > 30 mL/min) AND *Sequential Compression Device (SCD) Assessment and Plan Assessment and Plan 62-year-old female who presents to the ED with complaints of changes in speech along with balance initially began Wednesday of this week however worse since this morning. Patient has a past medical history of meningioma in the brain with radiation treatment, previously removed in [facility]. Slurred speech/dysarthria/balance problems History of meningioma - Patient has a history of meningioma which was previously removed in [facility] - Head CT scan viewed with no acute intracranial abnormality, stable meningiomas - Place patient in observation - Will order MRI/MRA of the brain - Neuro checks, ST swallow evaluation - Consult placed to neurosurgery, appreciate recommendations - Consult placed to neurology who is patient's regular neurologist , appreciate recommendations - CBC viewed unremarkable, CMP reviewed unremarkable Seizure disorder - Consider restarting Trileptal - Seizure precautions SVT, stable - HR stable - Consider resuming home dose of Verapamil DVT history - Resume Eliquis dose Asthma, not in exacerbation - Duo nebs as needed - Restart Symbicort when verified VTE - Will restart Eliquis This note was transcribed by carley Cortes. I, Dr. Honorio Miltonmus personally performed the history, physical exam, and medical decision making; and confirmed the accuracy of the information in the transcribed note. Authenticated by Dr. Honorio Maguire on 06/14/17 at 18:36. Code Status Full code Discussed Condition With at bedside Mitch Cortes Jun 14, 2017 17:58 Honorio Maldonado MD Jun 14, 2017 18:36
[2017-06-14 20:47] VITALS: BP 155/79; PULSE 84; RESP 18; TEMP 98.7; O2SAT 92
[2017-06-14] MEDS: HYDROCORTISONE 10 MG TAB PO SCH (23:00)
[2017-06-14] MEDS ORDERED: VERA120C PO (23:10)
[2017-06-15] VITALS (10 sets, daily range): BP systolic 110–144; BP diastolic 56–74; PULSE 78–106; RESP 15–18; TEMP 96.6–98.7; O2SAT 95–97
[2017-06-15] MEDS: BUDESONIDE-FORMOTEROL 160/4.5 MCG INHALER INH SCH ×3 (00:37→21:30)
[2017-06-15] MEDS: ATORVASTATIN 20 MG TAB PO SCH ×2 (00:37→21:30)
[2017-06-15] MEDS: OXcarbazepine 600 MG TAB PO SCH ×3 (00:37→21:30)
[2017-06-15] MEDS ORDERED: HYDR10TA65 PO (00:48)
[2017-06-15] MEDS ORDERED: LEVOTHYROXINE SODIUM 88 MCG TAB PO SCH (06:00)
[2017-06-15] MEDS ORDERED: LORazepam 2 MG/ML VIAL IV PUSH ONE ×2 (09:15)
[2017-06-15] MEDS: PANTOPRAZOLE SOD 40 MG DELAYED RELEASE TAB PO SCH (10:04)
[2017-06-15] MEDS: VERAPAMIL HCL 120 MG SUSTAINED RELEASE TAB PO SCH (10:04)
[2017-06-15] MEDS: HYDROCORTISONE 10 MG TAB PO SCH ×2 (10:06→21:00)
[2017-06-15] MEDS: ESCITALOPRAM OXALATE 20 MG TAB PO SCH (10:07)
[2017-06-15] MEDS: APIXABAN 2.5 MG TABLET PO SCH ×2 (10:08→21:30)
--- NOTE | 2017-06-15 11:21 | RADRPT ---
EXAM DATE/TIME: 06/15/2017 10:52 [facility] COMPARISON: MRA BRAIN W/O CONTRAST, February 26, 2016, 10:39. INDICATIONS : Unsteady gait. MEDICAL HISTORY : Meningioma. SURGICAL HISTORY : Craniotomy. Hysterectomy. Colectomy. ENCOUNTER: Initial ACUITY: 2 day PAIN SCORE: 0/10 LOCATION: head Please note a normal MRA of the brain does not entirely exclude the possibility of a small aneurysm, nor the possibility of distal intracranial vessel disease. TECHNIQUE: 3D time of flight MRA was performed. Source images, multiplanar STS MIP, and 3D volume MIP reconstru ctions were reviewed. FINDINGS: There is excellent visualization of the major intracranial arteries out to the second-order branch ve ssels. There is no evidence for aneurysm, vessel truncation or stenosis, and no evidence for vascula r malformation. CONCLUSION: Normal examination. Baudilio Bahena Jr., MD on June 15, 2017 at 11:11 Board Certified Radiologist. This report was verified electronically.
--- NOTE | 2017-06-15 12:08 | HHI.PR ---
Subjective Remarks Follow up on patient with unsteady gait, weakness, slurred speech, hx of meningioma. Patient seen and examined. Patient states she is feeling better today. The numbness/tingling in the left side of the face and in the left hand has resolved. She continues to have involuntary shaking which is chronic but worsened yesterday. She denies any headache but reports acute on chronic photosensitivity. She denies any vision changes. She denies any recent illness , fever or chills. She is swallowing without any difficulties. She denies any weakness in the arms or legs. Family reports stuttering this morning which was more worse than its been in the past. She has a hx of meningioma s/p excision and radiation treatment who currently follows with a neurologist at [facility]. Her only medication change has been the addition of Adderall 10mg that she began 3 weeks ago for brain fatigue. Objective Vitals Vital Signs Date Time Temp Pulse Resp B/P (MAP) Pulse Ox O2 Delivery O2 Flow Rate FiO2 06/15/17 08:20 96.6 78 18 133/65 (87) 95 06/15/17 04:16 98.0 80 18 134/67 (89) 97 06/15/17 03:45 84 06/15/17 00:38 97.9 106 17 144/74 (97) 95 06/15/17 00:05 89 06/14/17 20:47 98.7 84 18 155/79 (104) 92 06/14/17 17:15 88 18 158/85 (109) 95 Room Air 06/14/17 15:02 76 18 171/81 (111) 96 Room Air 06/14/17 12:38 92 18 96 Room Air 06/14/17 12:33 99 18 143/89 (107) 96 06/14/17 12:28 99.2 97 18 134/80 (98) 96 Room Air Result Diagram: 06/14/17 1250 06/14/17 1250 Imaging Last Impressions Head Magnetic Resonance Angiography 06/15/17 0000 Signed Impressions: Service Date/Time: Thursday, June 15, 2017 10:52 - CONCLUSION: Normal examination. Baudilio Bahena Jr., MD Brain MRI 06/15/17 0000 Signed Impressions: Service Date/Time: Thursday, June 15, 2017 10:52 - CONCLUSION: 1. Stable two masses as described above. 2. No new masses are identified. 3. There is no evidence of any acute stroke. Simone Bravo MD Head CT 06/14/17 1244 Signed Impressions: Service Date/Time: Wednesday, June 14, 2017 14:15 - CONCLUSION: 1. No acute intracranial abnormality. 2. 2 stable meningiomas. Baudilio Bahena Jr., MD Objective Remarks GENERAL: This is a well-nourished, well-developed patient, in no apparent distress. Awake and alert. Family at the bedside. SKIN: Cool and dry. HEAD: Atraumatic. Normocephalic. EYES: Pupils equal round and reactive. Extraocular motions intact. No scleral icterus. No injection or drainage. ENT: Nose without bleeding or purulent drainage. Airway patent. MMM. NECK: Trachea midline. CARDIOVASCULAR: Regular rate and rhythm without murmurs, gallops, or rubs. RESPIRATORY: Clear to auscultation. Breath sounds equal bilaterally. No wheezes , rales, or rhonchi. GASTROINTESTINAL: Abdomen soft, non-tender, nondistended. No hepato-splenomegaly , or palpable masses. No guarding. MUSCULOSKELETAL: Extremities without clubbing, cyanosis, or edema. NEUROLOGICAL: Awake and alert. Able to move all extremities spontaneously. No focal neurologic finding appreciated. Normal speech. Medications and IVs Current Medications Medications (Trade) Dose Ordered Sig/Sb Route Start Time Stop Time Status Last Admin (NS Flush) 2 ml UNSCH PRN IV FLUSH 06/14/17 12:45 (Eliquis) 2.5 mg BID PO 06/15/17 09:00 06/15/17 10:08 (Lipitor) 20 mg HS PO 06/14/17 23:00 06/15/17 00:37 (Symbicort 160-4.5 Mcg Inh) 2 puff Q12HR INH 06/14/17 23:00 06/15/17 10:03 (Lexapro) 20 mg DAILY PO 06/15/17 09:00 06/15/17 10:07 (Cortef) 5 mg HS PO 06/14/17 23:00 (Cortef) 15 mg DAILY PO 06/15/17 09:00 06/15/17 10:06 (Synthroid) 88 mcg DAILY@0600 PO 06/15/17 06:00 06/15/17 05:45 (Trileptal) 600 mg BID PO 06/14/17 23:00 06/15/17 10:08 (Protonix) 40 mg DAILY PO 06/15/17 09:00 06/15/17 10:04 (Isoptin Sr) 120 mg DAILY PO 06/15/17 09:00 06/15/17 10:04 A/P Problem List: (1) Balance problem ICD Code: R26.89 - Other abnormalities of gait and mobility (2) History of meningioma ICD Code: Z86.018 - Personal history of other benign neoplasm Assessment and Plan 62-year-old female who presents to the ED with complaints of changes in speech along with balance initially began Wednesday of this week however worse since this morning. Patient has a past medical history of meningioma in the brain with radiation treatment, previously removed in [facility]. She is under the care of neurologist at [facility]. Slurred speech/dysarthria/balance problems History of meningioma - Patient has a history of meningioma which was previously removed in [facility] and s/p radiation treatment - Head CT scan viewed with no acute intracranial abnormality, stable meningiomas - MRI revealed 2 stable masses, no new masses visualized - Neurology consulted, appreciate assistance - order EEG - Neuro checks - fall and seizure precautions - PT/OT/ST eval/tx Seizure disorder - patient resumed on home dose of Trileptal 600mg BID - Seizure precautions SVT, stable - HR stable - Continue on home dose of Verapamil 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 Robertson Discharge Planning Pending neurology clearance Jacey Landry Jun 15, 2017 12:08
--- NOTE | 2017-06-15 12:39 | RADRPT ---
EXAM DATE/TIME: 06/15/2017 10:52 [facility] COMPARISON: January, INDICATIONS : Unsteady gait. CONTRAST: 16 cc Omniscan (gadodiamide) IV MEDICAL HISTORY : Meningioma. SURGICAL HISTORY : Craniotomy. Hysterectomy. Colectomy. ENCOUNTER: Initial ACUITY: 2 day PAIN SCORE: 0/10 LOCATION: Head TECHNIQUE: Multiplanar, multisequence MRI of the brain was performed both prior to and following the administrat ion of paramagnetic contrast. FINDINGS: MRI of the brain was performed. Prior study January, used for comparison. MRI of the brain demonstrates there is a stable extra-axial mass in the right middle cranial fossa ju st above the orbital canal. The area enhanced measures 11 x 18 mm across. It is unchanged from the previous study. There is also an enhancing mass within the trigone on the right. That area of enhan cement measures 2.1 x 1.7 cm across. No new masses are identified. I do not see any areas of hemorr laurel on the T1 weighted sequences. Diffusion weighted sequences show no evidence of an acute stroke. No new mass or mass effects identi fied. Orbits are unremarkable. CONCLUSION: 1. Stable two masses as described above. 2. No new masses are identified. 3. There is no evidence of any acute stroke. Simone Bravo MD on June 15, 2017 at 11:59 Board Certified Radiologist. This report was verified electronically.
--- NOTE | 2017-06-15 13:13 | EKG ---
Date Performed: 06/14/2017 Time Performed: 14:59:48 PTAGE: 62 years EKG: Sinus rhythm NORMAL ECG PREVIOUS TRACING : 03/01/2017 15.08 Compared to prior tracing no significant change DOCTOR: Godfrey Shafer Interpretating Date/Time 06/15/2017 13:12:32
[2017-06-15 17:15] LABS: HDL CHOLESTEROL 54.9 MG/DL (40.0-60.0)
--- NOTE | 2017-06-15 22:29 | MB ---
cc: LO GARCIA DATE OF CONSULTATION 06/15/17 REASON FOR CONSULTATION Ataxia. HISTORY OF PRESENT ILLNESS Ms. Peck is a very nice 62 year old woman who has a history two meningiomas. One os in the right middle cranial fossa adjacent to the orbital canal. The other one is in the lateral ventricle on the right of the trigone. She has also been followed by neurology and neurosurgery at [facility] at the [facility]. She underwent surgery for the right orbital canal tumor with partial resection and has had radiosurgery for the trigone lesion. These have been stable. At one point, she was having some difficulty with double vision and vision loss. It was felt to be due to probable subtle enlargement of the right middle cranial fossa tumor, although it was not apparent on scanning. She underwent additional radiation therapy with resolution of the visual symptoms. She is now admitted with acute onset of difficulty with balance which came on yesterday, difficulty walking. She had slurring of her speech as well as tingling left face, left arm. These symptoms have since resolved. She does have a history of seizures as well for which she takes Trileptal. PAST MEDICAL HISTORY As noted above. 1. History of hysterectomy, 2. Colectomy 3. History of pulmonary emboli for which she takes Eliquis 4. Supraventricular tachycardiac 5. Post traumatic stress disorder 6. Colectomy with colostomy removal, 7. Cataract surgery. MEDICATIONS 1. Trileptal 600 mg b.i.d. 2. Verapamil ER 120 mg daily. 3. Levothyroxine 88 mcg daily. 4. Nexium 40 mg daily. 5. Zofran as needed. 6. Hydrocortisone 5 mg at bedtime and 15 mg in the morning 7. Eliquis 2.5 mg b.i.d. 8. Lexapro 20 mg daily. 9. Ventolin inhaler 10. Atorvastatin. 11. Symbicort. 12. Lorazepam. 13. Calcium. ALLERGIES HYDROCODONE MEPERIDINE TOPIRAMATE FLUTICASONE SALMTEROL NEUROLOGIC EXAMINATION VITAL SIGNS: Blood pressure is 117/56, pulse is 80, respiratory rate is 18, temperature 98 degrees. Higher cortical functions are normal including speech. Cranial nerves II-XII are normal. Motor exam shows 5/5 strength of all groups in both upper and lower extremities with no drift. Fine motor skills are normal. Reflexes are symmetric. Sensory exam intact. IMAGING STUDIES MRI of the brain is reviewed and this is compared with previous date of January 2016, again there are two masses consistent with meningiomas, one in the right middle cranial fossa just above the orbital canal unchanged from previous study. There is also a meningioma in the right trigone unchanged from the previous study. No evidence of hydrocephalus is identified. MRA of the brain is normal. IMPRESSION Episode of increasing ataxia, left-sided paresthesias and slurred speech. Possibilities include a TIA of the right hemisphere, focal seizure less likely. The other possibility is a possible subtle enlargement of the meningioma causing change in outflow obstruction of CSF, although I cannot appreciate this on the current MRI. RECOMMENDATIONS Recommend further evaluation with an echocardiogram as well as a carotid ultrasound. Start aspirin 81 mg daily for the positive transient ischemic attack. Also recommend neurosurgical evaluation regarding the possibility of the right lateral ventricle meningioma causing CSF outflow obstruction. MD DIPAK Avila/ /10:03 PM /10:13 PM
[2017-06-16] VITALS (10 sets, daily range): BP systolic 116–144; BP diastolic 57–75; PULSE 75–98; RESP 18; TEMP 97.3–98.6; O2SAT 93–96
[2017-06-16] MEDS ORDERED: LEVOTHYROXINE SODIUM 75 MCG TAB PO SCH (06:00)
--- NOTE | 2017-06-16 09:20 | RADRPT ---
EXAM DATE/TIME: 06/16/2017 08:22 [facility] COMPARISON: US CAROTID ARTERIES, April 04, 2015, 18:48. INDICATIONS : Transischemic attack. MEDICAL HISTORY : Thyroid disease. PE. CVA. Meningioma. Menier's syndrome. seizures. SURGICAL HISTORY : Cataract bilateral. Craniotomy. Cardiac catheterization. Colectomy. Flaca ORTEGA. ENCOUNTER: Sequela ACUITY: 1 day PAIN SCORE: 3/10 LOCATION: Right neck PEAK SYSTOLIC VELOCITIES (cm/sec): ICA/CCA RATIO: Right: 1.3 Left: 1.4 ICA: Right: 116 Left: 114 CCA: Right: 87 Left: 81 ECA: Right: 113 Left: 129 VERTEBRAL: Right: 78 antegrade Left: 68 antegrade Elevated flow velocities and ICA/CCA ratios have been found to correlate with increased degrees of vessel stenosis, calculated as percentage of diameter relative to a normal segment of distal ICA/CCA FINDINGS: RIGHT CAROTID: There is no evidence for a hemodynamically significant carotid stenosis. Minimal int imal hyperplasia is present with scattered calcific plaque. LEFT CAROTID: There is no evidence for a hemodynamically significant carotid stenosis. Minimal inti mal hyperplasia is present with scattered calcific plaque. VERTEBRAL ARTERIES: Flow is antegrade in both vertebral arteries. MISCELLANEOUS: There are no ancillary masses or adenopathy. CONCLUSION: Negative examination for a hemodynamically significant carotid stenosis. No significant progression from comparison study. Board Certified Radiologist. This report was verified electronically.
--- NOTE | 2017-06-16 10:10 | HHI.PR ---
Subjective Remarks Follow up on patient with unsteady gait, weakness, slurred speech, hx of meningioma. Patient seen and examined. Patient remains at her baseline. Discussed with her and her son test results thus far. Awaiting NS evaluation. She denies any new medical complaints. She is not interested in going to rehab due to the holidays but states she is open to [facility] PT. Objective Vitals Vital Signs Date Time Temp Pulse Resp B/P (MAP) Pulse Ox O2 Delivery O2 Flow Rate FiO2 06/16/17 08:19 75 06/16/17 07:48 97.3 76 18 116/59 (78) 94 06/16/17 04:22 98.5 80 18 129/62 (84) 95 06/16/17 04:00 78 06/16/17 00:15 98.3 84 18 118/58 (78) 95 06/15/17 23:59 82 06/15/17 20:23 98.7 88 18 117/56 (76) 95 06/15/17 20:05 85 06/15/17 17:13 98.7 83 18 110/57 (74) 95 06/15/17 12:04 96.8 94 15 138/65 (89) 96 Result Diagram: 06/14/17 1250 06/14/17 1250 Imaging Last Impressions Carotid Artery Ultrasound 06/16/17 0000 Signed Impressions: Service Date/Time: Friday, June 16, 2017 08:22 - CONCLUSION: Negative examination for a hemodynamically significant carotid stenosis. No significant progression from comparison study. Board Certified Radiologist. This report was verified electronically. Head Magnetic Resonance Angiography 06/15/17 0000 Signed Impressions: Service Date/Time: Thursday, June 15, 2017 10:52 - CONCLUSION: Normal examination. Baudilio Bahena Jr., MD Brain MRI 06/15/17 0000 Signed Impressions: Service Date/Time: Thursday, June 15, 2017 10:52 - CONCLUSION: 1. Stable two masses as described above. 2. No new masses are identified. 3. There is no evidence of any acute stroke. Simone Bravo MD Head CT 06/14/17 1244 Signed Impressions: Service Date/Time: Wednesday, June 14, 2017 14:15 - CONCLUSION: 1. No acute intracranial abnormality. 2. 2 stable meningiomas. Baudilio Bahena Jr., MD Objective Remarks GENERAL: This is a well-nourished, well-developed patient, in no apparent distress. Awake and alert. Sitting up in bed. Son at the bedside. SKIN: Cool and dry. HEAD: Atraumatic. Normocephalic. EYES: Extraocular motions intact. No scleral icterus. No injection or drainage. ENT: Nose without bleeding or purulent drainage. Airway patent. MMM. NECK: Trachea midline. CARDIOVASCULAR: Regular rate and rhythm without murmurs, gallops, or rubs. RESPIRATORY: Clear to auscultation. Breath sounds equal bilaterally. No wheezes , rales, or rhonchi. GASTROINTESTINAL: Abdomen soft, non-tender, nondistended. No hepato-splenomegaly , or palpable masses. No guarding. MUSCULOSKELETAL: Extremities without clubbing, cyanosis, or edema. NEUROLOGICAL: Awake and alert. Able to move all extremities spontaneously. No focal neurologic finding appreciated. Normal speech. Medications and IVs Current Medications Medications (Trade) Dose Ordered Sig/Sb Route Start Time Stop Time Status Last Admin (NS Flush) 2 ml UNSCH PRN IV FLUSH 06/14/17 12:45 (Eliquis) 2.5 mg BID PO 06/15/17 09:00 06/15/17 21:30 (Lipitor) 20 mg HS PO 06/14/17 23:00 06/15/17 21:30 (Symbicort 160-4.5 Mcg Inh) 2 puff Q12HR INH 06/14/17 23:00 06/15/17 21:30 (Lexapro) 20 mg DAILY PO 06/15/17 09:00 06/15/17 10:07 (Cortef) 5 mg HS PO 06/14/17 23:00 (Cortef) 15 mg DAILY PO 06/15/17 09:00 06/15/17 10:06 (Trileptal) 600 mg BID PO 06/14/17 23:00 06/15/17 21:30 (Protonix) 40 mg DAILY PO 06/15/17 09:00 06/15/17 10:04 (Isoptin Sr) 120 mg DAILY PO 06/15/17 09:00 06/15/17 10:04 (Synthroid) 75 mcg DAILY@0600 PO 06/16/17 06:00 06/16/17 06:11 (Aspirin Chew) 81 mg DAILY PO 06/16/17 09:00 A/P Problem List: (1) Balance problem ICD Code: R26.89 - Other abnormalities of gait and mobility (2) History of meningioma ICD Code: Z86.018 - Personal history of other benign neoplasm Assessment and Plan 62-year-old female who presents to the ED with complaints of changes in speech along with balance initially began Wednesday of this week however worse since this morning. Patient has a past medical history of meningioma in the brain with radiation treatment, previously removed in [facility]. She is under the care of neurologist at [facility]. Slurred speech/dysarthria/balance problems History of meningioma - Patient has a history of meningioma which was previously removed in [facility] and s/p radiation treatment - Head CT scan viewed with no acute intracranial abnormality, stable meningiomas - MRI revealed 2 stable masses, no new masses visualized - Neurology consulted, appreciate assistance. Started on ASA 81mg. Neurosurgery consulted for possibility of right lateral ventricle meningioma causing CSF outflow obstruction. Echo and Carotid US ordered. Carotid US unremarkable. - EEG and 2D echo pending - Neuro checks - fall and seizure precautions - PT recommending rehab - patient declines but is willing to have PT come to the house. 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 TSH low. Initially decreased dose of Synthroid but patient states she was told to go by the T4 per her blind eyeletter at [facility]. - previous home dose resumed at 88mcg. Recommend follow up with regular blind eyeletter at [facility] as outpatient. VTE - Patient is on Eliquis Discussed with patient, family and Dr. Robertson Discharge Planning Pending neurology and neurosurgery clearance and echocardiogram Jacey Landry Jun 16, 2017 10:10
[2017-06-16] MEDS: ASPIRIN 81 MG CHEW TAB PO SCH (10:19)
[2017-06-16] MEDS: BUDESONIDE-FORMOTEROL 160/4.5 MCG INHALER INH SCH ×2 (10:19→21:20)
[2017-06-16] MEDS: HYDROCORTISONE 10 MG TAB PO SCH ×2 (10:19→21:20)
[2017-06-16] MEDS: PANTOPRAZOLE SOD 40 MG DELAYED RELEASE TAB PO SCH (10:19)
[2017-06-16] MEDS: APIXABAN 2.5 MG TABLET PO SCH ×2 (10:19→21:20)
[2017-06-16] MEDS: OXcarbazepine 600 MG TAB PO SCH ×2 (10:20→21:19)
[2017-06-16] MEDS: ESCITALOPRAM OXALATE 20 MG TAB PO SCH (10:20)
[2017-06-16] MEDS: VERAPAMIL HCL 120 MG SUSTAINED RELEASE TAB PO SCH (10:20)
[2017-06-16] MEDS ORDERED: ADDE10 PO (11:42)
--- NOTE | 2017-06-16 11:54 | PD.CONS ---
[facility] Service neurosurgery Consult Requested By Reason for Consult Brain mass Primary Care Physician Non-Staff History of Present Illness this is a 62-year-old female brought to [facility] ED with new onset changes in speech and balance Apparently her symptoms began Wednesday ,worsening. She has a known history of intraventricular meningioma in the right side of her brain which, was previously radiated with stereotactic radiosurgery in [facility]. She continues to follow-up with neurosurgeon at [facility]. Her neurologist is Dr. Riley. She reports that she has also been experiencing tremors in the past week along with the sensation of pins and needles in bilateral hands. Denies focal weakness. She denies any headaches, nausea, vomiting, diarrhea. She reportw photosensitivity and a history of blurred vision. Feels that her speech is changed and she has difficulty explaining things. MRI was done. Neurosurgery consultation was requested Past Family Social History Allergies: Coded Allergies: hydrocodone (Unverified Allergy, Severe, Itching, 03/01/17) meperidine (Unverified Allergy, Severe, Nausea/Vomiting, 03/01/17) patient denies topiramate (Unverified Allergy, Unknown, INCREASED HEART RATE, 03/01/17) fluticasone (Unverified Adverse Reaction, Severe, RESP FAILURE, 02/09/17) DENIES RESP FAILURE STATES CHEST PRESSURE. fluticasone furoate (Unverified Adverse Reaction, Severe, RESP FAILURE, ) DENIES RESP FAILURE STATES CHEST PRESSURE. salmeterol (Unverified Adverse Reaction, Severe, RESP FAILURE, 02/09/17) DENIES RESP FAILURE STATES CHEST PRESSURE. Past Medical History Meningioma SVT Asthma Anxiety PTSD Colitis with colectomy and reversal Pulmonary embolism Past Surgical History Craniotomy with removal of meningioma Colectomy with colostomy and reversal Total hysterectomy Cataract surgery Reported Medications Mapap Extra Strength (Acetaminophen) 500 Mg Tab 1,000 Mg PO Q4-6H PRN Trileptal (Oxcarbazepine) 600 Mg Tab 600 Mg PO BID Verapamil HCl ER (Verapamil HCl) 120 Mg Cap PO Levothyroxine (Levothyroxine Sodium) 88 Mcg Tab 88 Mcg PO DAILY Nexium (Esomeprazole DR) 40 Mg Capdr 40 Mg PO DAILY Zofran (Ondansetron HCl) 4 Mg Tab 4 Mg PO Q6HR PRN Hydrocortisone 5 Mg Tab 5 Mg PO HS Take with food to decrease GI upset Hydrocortisone 5 Mg Tab 15 Mg PO DAILY Take with food to decrease GI upset Eliquis (Apixaban) 2.5 Mg Tab 2.5 Mg PO BID Lexapro (Escitalopram Oxalate) 20 Mg Tab 20 Mg PO DAILY Ventolin Hfa 18 GM Inh (Albuterol Sulfate) 90 Mcg/Act Aer 2 Puff INH Q6H PRN Atorvastatin (Atorvastatin Calcium) 20 Mg Tab 20 Mg PO HS Symbicort Inh (Budesonide/Formoterol Fumarate) 160-4.5 Mcg/Act Aero 2 Puff INH Q12HR Lorazepam 1 Mg Tab 1 Mg PO Q6H PRN Cyanocobalamin Inj (Cyanocobalamin) 1,000 Mcg/Ml Inj 1,000 Mcg IM Q30D E-400 (Vitamin E) 400 Unit Cap 400 Units PO DAILY Vitamin D3 (Cholecalciferol) 1,000 Unit Tab 1,000 Units PO DAILY Calcium (Oyster Shell) 500 Mg Tab 500 Mg PO DAILY Active Ordered Medications Current Medications Sodium Chloride (NS Flush) 2 ml UNSCH PRN IV FLUSH FLUSH AFTER USING IV ACCESS ; Start 06/14/17 at 12:45 Dexamethasone Sodium Phosphate (Decadron Inj) 10 mg ONCE ONCE IV PUSH Last administered on 06/14/17 12:54; Start 06/14/17 at 12:45; Stop 06/14/17 at 12 :46; Status DC Apixaban (Eliquis) 2.5 mg BID PO Last administered on 06/16/17 10:19; Start 06/15/17 at 09:00 Atorvastatin Calcium (Lipitor) 20 mg HS PO Last administered on 06/15/17 21: 30; Start 06/14/17 at 23:00 Budesonide/ Formoterol Fumarate (Symbicort 160-4.5 Mcg Inh) 2 puff Q12HR INH Last administered on 06/16/17 10:19; Start 06/14/17 at 23:00 Escitalopram Oxalate (Lexapro) 20 mg DAILY PO Last administered on 12/20/17at 10:20; Start 06/15/17 at 09:00 Hydrocortisone (Cortef) 5 mg HS PO ; Start 06/14/17 at 23:00 Hydrocortisone (Cortef) 15 mg DAILY PO Last administered on 06/16/17 10:19; Start 06/15/17 at 09:00 Levothyroxine Sodium (Synthroid) 88 mcg DAILY@0600 PO Last administered on 05:45; Start 06/15/17 at 06:00; Stop 06/15/17 at 15:38; Status DC Oxcarbazepine (Trileptal) 600 mg BID PO Last administered on 06/16/17 10:20; Start 06/14/17 at 23:00 Pantoprazole Sodium (Protonix) 40 mg DAILY PO Last administered on 06/16/17 10:19; Start 06/15/17 at 09:00 Lorazepam (Ativan Inj) 2 mg ONCE ONCE IV PUSH ; Start 06/15/17 at 00:00; Stop 06/15/17 at 00:02; Status DC Verapamil HCl (Isoptin Sr) 120 mg DAILY PO Last administered on 06/16/17 10: 20; Start 06/15/17 at 09:00 Lorazepam (Ativan Inj) 2 mg ONCE ONCE IV PUSH Last administered on 06/15/17 10:30; Start 06/15/17 at 09:15; Stop 06/15/17 at 09:16; Status DC Gadodiamide (Omniscan Pf Inj) 16 ml STK-MED ONCE IVCONTRAST Last administered on 06/14/17 16:56; Start 06/14/17 at 16:56; Stop 06/15/17 at 11:06; Status DC Levothyroxine Sodium (Synthroid) 75 mcg DAILY@0600 PO Last administered on 06:11; Start 06/16/17 at 06:00; Stop 06/16/17 at 10:58; Status DC Aspirin (Aspirin Chew) 81 mg DAILY PO Last administered on 06/16/17 10:19; Start 06/16/17 at 09:00 Levothyroxine Sodium (Synthroid) 88 mcg DAILY@0600 PO ; Start 06/17/17 at 06:00 ; Status UNV Family History Her family history was reviewed. Father: Triple bypass Social History Tobacco: Denies Alcohol: Denies Illicit drug use: Denies She is Physical Exam Vital Signs Vital Signs Date Time Temp Pulse Resp B/P (MAP) Pulse Ox O2 Delivery O2 Flow Rate FiO2 06/16/17 08:19 75 06/16/17 07:48 97.3 76 18 116/59 (78) 94 06/16/17 04:22 98.5 80 18 129/62 (84) 95 06/16/17 04:00 78 06/16/17 00:15 98.3 84 18 118/58 (78) 95 06/15/17 23:59 82 06/15/17 20:23 98.7 88 18 117/56 (76) 95 06/15/17 20:05 85 06/15/17 17:13 98.7 83 18 110/57 (74) 95 06/15/17 12:04 96.8 94 15 138/65 (89) 96 Physical Exam Ms Peck is alert, awake and oriented to time, place and person. Speech is fluent. Higher cognitive functions are normal. Cranial nerve examination demonstrates the pupils to be equal, round, and reactive to light. Extra-ocular movements are intact. Facial motor and sensory function are normal and symmetrical. Gross hearing is intact, bilaterally. The uvula is midline and elevates symmetrically with the soft palate. Sternocleidomastoid and trapezius muscles have normal and symmetrical strength. Other cranial nerves are intact. Neck is soft and supple. Cervical spine has a full range of motion in anterior flexion, extension, lateral bending, and rotation without pain. There is no tenderness to palpation to the spinous processes or paraspinal muscles. Muscle testing reveals normal bulk and tone overall without rigidity, spasticity , fasciculations, or atrophy. Muscle strength is 5/5 in all muscle groups of both upper extremities including deltoid, biceps, triceps, brachioradialis, wrist extension and vice president network development. In the lower extremities, strength is 5/5 in both iliopsoas, quadriceps, hamstrings, plantar flexion, dorsiflexion, and extensor hallicus longus. Sensory examination is intact to light touch and sharp/dull discrimination in both the upper and lower extremities, symmetrically. Deep tendon reflexes are 2+ and symmetrical in the biceps, triceps, and brachioradialis, bilaterally, in the upper extremities. In the lower extremities , the patellar and Achilles are 2+, bilaterally. There is a bilateral plantar flexion response. Hoffmanns sign is negative. There is no clonus or other abnormal reflexes noted. Cerebellar examination is intact to [id number] test, rapid rhythmic alternating motion. There is no dysmetria, dysdiadochokinesia, truncal ataxia Laboratory Laboratory Tests Test 06/15/17 15:53 Triglycerides Level 153 Cholesterol Level 164 LDL Cholesterol 79 HDL Cholesterol 54.9 Cholesterol/HDL Ratio 2.98 Result Diagram: 06/14/17 1250 06/14/17 1250 Imaging Last 48 hours Impressions Carotid Artery Ultrasound 06/16/17 0000 Signed Impressions: Service Date/Time: Friday, June 16, 2017 08:22 - CONCLUSION: Negative examination for a hemodynamically significant carotid stenosis. No significant progression from comparison study. Board Certified Radiologist. This report was verified electronically. Head Magnetic Resonance Angiography 06/15/17 0000 Signed Impressions: Service Date/Time: Thursday, June 15, 2017 10:52 - CONCLUSION: Normal examination. Baudilio Bahena Jr., MD Brain MRI 06/15/17 0000 Signed Impressions: Service Date/Time: Thursday, June 15, 2017 10:52 - CONCLUSION: 1. Stable two masses as described above. 2. No new masses are identified. 3. There is no evidence of any acute stroke. Simone Bravo MD Head CT 06/14/17 1244 Signed Impressions: Service Date/Time: Wednesday, June 14, 2017 14:15 - CONCLUSION: 1. No acute intracranial abnormality. 2. 2 stable meningiomas. Baudilio Bahena Jr., MD Assessment and Plan Assessment and Plan Caprini VTE Risk Assessment Caprini VTE Risk Assessment Caprini VTE Risk Assessment: Mod/High Risk (score >= 2) Caprini Risk Assessment Model Point Value = 1 Point Value = 2 Point Value = 3 Point Value = 5 Age 41-60 Minor surgery BMI > 25 kg/m2 Swollen legs Varicose veins or History of unexplained or recurrent spontaneous Oral contraceptives or hormone replacement Sepsis (< 1 month) Serious lung disease, including pneumonia (< 1 month) Abnormal pulmonary function Acute myocardial infarction Congestive heart failure (< 1 month) History of inflammatory bowel disease Medical patient at bed rest Age 61-74 Arthroscopic surgery Major open surgery (> 45 min) Laparoscopic surgery (> 45 min) Malignancy Confined to bed (> 72 hours) Immobilizing plaster cast Central venous access Age >= 75 History of VTE Family history of VTE Factor V Leiden Prothrombin [id number] Lupus anticoagulant Anticardiolipin antibodies Elevated serum homocysteine Heparin-induced thrombocytopenia Other congenital or acquired thrombophilia Stroke (< 1 month) Elective arthroplasty Hip, pelvis, or leg fracture Acute spinal cord injury (< 1 month) Prophylaxis Regimen Total Risk Factor Score Risk Level Prophylaxis Regimen 0-1 Low Early ambulation 2 Moderate Order ONE of the following: *Sequential Compression Device (SCD) *Heparin 5000 units SQ BID 3-4 Higher Order ONE of the following medications: *Heparin 5000 units SQ TID *Enoxaparin/Lovenox 40 mg SQ daily (WT < 150 kg, CrCl > 30 mL/min) *Enoxaparin/Lovenox 30 mg SQ daily (WT < 150 kg, CrCl > 10-29 mL/min) *Enoxaparin/Lovenox 30 mg SQ BID (WT < 150 kg, CrCl > 30 mL/min) AND/OR *Sequential Compression Device (SCD) 5 or more Highest Order ONE of the following medications: *Heparin 5000 units SQ TID (Preferred with Epidurals) *Enoxaparin/Lovenox 40 mg SQ daily (WT < 150 kg, CrCl > 30 mL/min) *Enoxaparin/Lovenox 30 mg SQ daily (WT < 150 kg, CrCl > 10-29 mL/min) *Enoxaparin/Lovenox 30 mg SQ BID (WT < 150 kg, CrCl > 30 mL/min) AND *Sequential Compression Device (SCD) Assessment and Plan Assessment and Plan Assessment and Plan 62-year-old female who presents to the ED with complaints of changes in speech along with balance initially began Wednesday of this week however worse since this morning. Patient has a past medical history of meningioma in the brain with radiation treatment, previously removed in [facility]. Slurred speech/dysarthria/balance problems History of meningioma - Patient has a history of meningioma which was previously removed in [facility] - Head CT scan viewed with no acute intracranial abnormality, stable meningiomas - Place patient in observation - Will order MRI/MRA of the brain - Neuro checks, ST swallow evaluation - Consult placed to neurosurgery, appreciate recommendations - Consult placed to neurology who is patient's regular neurologist , appreciate recommendations - CBC viewed unremarkable, CMP reviewed unremarkable Seizure disorder - Consider restarting Trileptal - Seizure precautions SVT, stable - HR stable - Consider resuming home dose of Verapamil DVT history - Resume Eliquis dose Asthma, not in exacerbation - Duo nebs as needed - Restart Symbicort when verified VTE - Will restart Eliquis This note was transcribed by carley []. I, Dr. Honorio Maguire personally performed the history, physical exam, and medical decision making; and confirmed the accuracy of the information in the transcribed note.62-year-old female who presents to the ED with complaints of changes in speech along with balance initially began Wednesday of this week however worse since this morning. Patient has a past medical history of meningioma in the brain which was previously removed in [facility]. She continues to follow-up with neurosurgery at [facility] her regular neurologist is Dr. Riley. Patient reports that she has also been experiencing tremors in the past week along with the sensation of pins and needles in bilateral hands. She states that she began having issues on Wednesday with normal walking and felt as if her balance was off. She has also noted that she has small hand tremors, no noted weakness. She denies any headaches, nausea, vomiting, diarrhea. Does report photosensitivity which she has history of, she also has a history of blurred vision. Feels that her speech is changed and she has difficulty explaining things. Her is at bedside and hopes with provide some of her history. ROS - General Review of Systems Eyes: COMPLAINS OF: Blurred vision Neurologic: COMPLAINS OF: Abnormal gait, Paresthesias, Speech Problems, Poor Balance Except as stated in HPI: all other systems reviewed are Neg PFSH Past Family Social History Past Medical History Meningioma SVT Asthma Anxiety PTSD Colitis with colectomy and reversal Pulmonary embolism History taken from patient and at bedside as well as from past hospitalizations. Past Surgical History Craniotomy with removal of meningioma Colectomy with colostomy and reversal Total hysterectomy Cataract surgery Past surgical history obtained from patient and at bedside as well as past hospitalizations Reported Medications Reported Meds & Active Scripts Active Reported Mapap Extra Strength (Acetaminophen) 500 Mg Tab 1,000 Mg PO Q4-6H PRN Trileptal (Oxcarbazepine) 600 Mg Tab 600 Mg PO BID Verapamil HCl ER (Verapamil HCl) 120 Mg Cap PO Levothyroxine (Levothyroxine Sodium) 88 Mcg Tab 88 Mcg PO DAILY Nexium (Esomeprazole DR) 40 Mg Capdr 40 Mg PO DAILY Zofran (Ondansetron HCl) 4 Mg Tab 4 Mg PO Q6HR PRN Hydrocortisone 5 Mg Tab 5 Mg PO HS Take with food to decrease GI upset Hydrocortisone 5 Mg Tab 15 Mg PO DAILY Take with food to decrease GI upset Eliquis (Apixaban) 2.5 Mg Tab 2.5 Mg PO BID Lexapro (Escitalopram Oxalate) 20 Mg Tab 20 Mg PO DAILY Ventolin Hfa 18 GM Inh (Albuterol Sulfate) 90 Mcg/Act Aer 2 Puff INH Q6H PRN Atorvastatin (Atorvastatin Calcium) 20 Mg Tab 20 Mg PO HS Symbicort Inh (Budesonide/Formoterol Fumarate) 160-4.5 Mcg/Act Aero 2 Puff INH Q12HR Lorazepam 1 Mg Tab 1 Mg PO Q6H PRN Cyanocobalamin Inj (Cyanocobalamin) 1,000 Mcg/Ml Inj 1,000 Mcg IM Q30D E-400 (Vitamin E) 400 Unit Cap 400 Units PO DAILY Vitamin D3 (Cholecalciferol) 1,000 Unit Tab 1,000 Units PO DAILY Calcium (Oyster Shell) 500 Mg Tab 500 Mg PO DAILY Allergies: Coded Allergies: hydrocodone (Unverified Allergy, Severe, Itching, 03/01/17) meperidine (Unverified Allergy, Severe, Nausea/Vomiting, 03/01/17) patient denies topiramate (Unverified Allergy, Unknown, INCREASED HEART RATE, 03/01/17) fluticasone (Unverified Adverse Reaction, Severe, RESP FAILURE, 02/09/17) DENIES RESP FAILURE STATES CHEST PRESSURE. fluticasone furoate (Unverified Adverse Reaction, Severe, RESP FAILURE, ) DENIES RESP FAILURE STATES CHEST PRESSURE. salmeterol (Unverified Adverse Reaction, Severe, RESP FAILURE, 02/09/17) DENIES RESP FAILURE STATES CHEST PRESSURE. Family History Father: Triple bypass Social History Tobacco: Denies Alcohol: Denies Illicit drug use: Denies 3 children Physical Exam Physical Exam Vital Signs Vital Signs Date Time Temp Pulse Resp B/P (MAP) Pulse Ox O2 Delivery O2 Flow Rate FiO2 06/14/17 17:15 88 18 158/85 (109) 95 Room Air 06/14/17 15:02 76 18 171/81 (111) 96 Room Air 06/14/17 12:38 92 18 96 Room Air 06/14/17 12:33 99 18 143/89 (107) 96 06/14/17 12:28 99.2 97 18 134/80 (98) 96 Room Air Physical Exam GENERAL: This is a well-nourished, well-developed patient, in no apparent distress. SKIN: No rashes, ecchymoses or lesions. Cool and dry. HEAD: Atraumatic. Normocephalic. No temporal or scalp tenderness. EYES: Pupils equal round and reactive. Extraocular motions intact. No scleral icterus. No injection or drainage. ENT: Nose without bleeding, purulent drainage or septal hematoma. Airway patent. NECK: Trachea midline. No JVD or lymphadenopathy. Supple, nontender, no meningeal signs. CARDIOVASCULAR: Regular rate and rhythm without murmurs, gallops, or rubs. RESPIRATORY: Clear to auscultation. Breath sounds equal bilaterally. No wheezes , rales, or rhonchi. GASTROINTESTINAL: Abdomen soft, non-tender, nondistended. No hepato-splenomegaly , or palpable masses. No guarding. MUSCULOSKELETAL: Extremities without clubbing, cyanosis, or edema. No joint tenderness, effusion, or edema noted. No calf tenderness. Negative Homans sign bilaterally. NEUROLOGICAL: Awake and alert. Cranial nerves II through XII intact. Motor and sensory grossly within normal limits. Five out of 5 muscle strength in all muscle groups. Normal speech. Laboratory Laboratory Tests Test 06/14/17 12:50 White Blood Count 8.7 Red Blood Count 4.28 Hemoglobin 12.5 Hematocrit 38.2 Mean Corpuscular Volume 89.2 Mean Corpuscular Hemoglobin 29.3 Mean Corpuscular Hemoglobin Concent 32.8 Red Cell Distribution Width 15.5 Platelet Count 350 Mean Platelet Volume 7.2 Neutrophils (%) (Auto) 78.9 Lymphocytes (%) (Auto) 12.1 Monocytes (%) (Auto) 7.6 Eosinophils (%) (Auto) 0.9 Basophils (%) (Auto) 0.5 Neutrophils # (Auto) 6.8 Lymphocytes # (Auto) 1.0 Monocytes # (Auto) 0.7 Eosinophils # (Auto) 0.1 Basophils # (Auto) 0.0 CBC Comment DIFF FINAL Differential Comment Prothrombin Time 10.3 Prothromb Time International Ratio 1.0 Activated Partial Thromboplast Time 23.8 Blood Urea Nitrogen 14 Creatinine 0.96 Random Glucose 109 Total Protein 6.4 Albumin 3.1 Calcium Level 8.8 Alkaline Phosphatase 93 Aspartate Amino Transf (AST/SGOT) 14 Alanine Aminotransferase (ALT/SGPT) 21 Total Bilirubin 0.3 Sodium Level 144 Potassium Level 3.7 Chloride Level 111 Carbon Dioxide Level 27.0 Anion Gap 6 Estimat Glomerular Filtration Rate 59 Free Thyroxine 1.04 Free Triiodothyronine (T3) pg/dL 2.98 Thyroid Stimulating Hormone 3rd Gen 0.009 Result Diagram: 06/14/17 1250 06/14/17 1250 Imaging Last Impressions Head CT 06/14/17 1244 Signed Impressions: Service Date/Time: Wednesday, June 14, 2017 14:15 - CONCLUSION: 1. No acute intracranial abnormality. 2. 2 stable meningiomas. Baudilio Bahena Jr., MD Septic Shock Reassessment Caprini VTE Risk Assessment Caprini VTE Risk Assessment Caprini VTE Risk Assessment: Mod/High Risk (score >= 2) Caprini Risk Assessment Model Point Value = 1 Point Value = 2 Point Value = 3 Point Value = 5 Age 41-60 Minor surgery BMI > 25 kg/m2 Swollen legs Varicose veins or History of unexplained or recurrent spontaneous Oral contraceptives or hormone replacement Sepsis (< 1 month) Serious lung disease, including pneumonia (< 1 month) Abnormal pulmonary function Acute myocardial infarction Congestive heart failure (< 1 month) History of inflammatory bowel disease Medical patient at bed rest Age 61-74 Arthroscopic surgery Major open surgery (> 45 min) Laparoscopic surgery (> 45 min) Malignancy Confined to bed (> 72 hours) Immobilizing plaster cast Central venous access Age >= 75 History of VTE Family history of VTE Factor V Leiden Prothrombin [id number] Lupus anticoagulant Anticardiolipin antibodies Elevated serum homocysteine Heparin-induced thrombocytopenia Other congenital or acquired thrombophilia Stroke (< 1 month) Elective arthroplasty Hip, pelvis, or leg fracture Acute spinal cord injury (< 1 month) Prophylaxis Regimen Total Risk Factor Score Risk Level Prophylaxis Regimen 0-1 Low Early ambulation 2 Moderate Order ONE of the following: *Sequential Compression Device (SCD) *Heparin 5000 units SQ BID 3-4 Higher Order ONE of the following medications: *Heparin 5000 units SQ TID *Enoxaparin/Lovenox 40 mg SQ daily (WT < 150 kg, CrCl > 30 mL/min) *Enoxaparin/Lovenox 30 mg SQ daily (WT < 150 kg, CrCl > 10-29 mL/min) *Enoxaparin/Lovenox 30 mg SQ BID (WT < 150 kg, CrCl > 30 mL/min) AND/OR *Sequential Compression Device (SCD) 5 or more Highest Order ONE of the following medications: *Heparin 5000 units SQ TID (Preferred with Epidurals) *Enoxaparin/Lovenox 40 mg SQ daily (WT < 150 kg, CrCl > 30 mL/min) *Enoxaparin/Lovenox 30 mg SQ daily (WT < 150 kg, CrCl > 10-29 mL/min) *Enoxaparin/Lovenox 30 mg SQ BID (WT < 150 kg, CrCl > 30 mL/min) AND *Sequential Compression Device (SCD) Attending Statement History of meningioma. I reviewed her MRI. The findings have been discussed including for, comparision. Recommend nonoperative treatment for now. Recommend to follow up with her neurosurgeon in the future at the [facility] Possible TIA. Will order MRI/MRA of the brain - Neuro checks, ST swallow evaluation - Carotid duplex Seizure disorder Obtained EEG - Consider restarting Trileptal - Seizure precautions SVT, stable - HR stable - Consider resuming home dose of Verapamil DVT history - Resume Eliquis dose Asthma, not in exacerbation - Continue Duo nebs as needed - Restart Symbicort when verified VTE - Will restart Eliquis Pulmonary. Continue aggressive pulmonary toilette, nasotracheal suction, and breathing treatments with nebulizers. Daily PT and OT Nutrition. Tolerating Oral diet Renal. Continue to monitor closely urine output, BUN and creatinine Endocrine. Continue to Monitor serial Acu checks and SSI as needed in detail ID continue to monitor for signs of infection Continue Protonix for stress ulcer prophylaxis Continue Len parmar and SCD's for DVT prophylaxis Zhang Isbell MD Jun 16, 2017 11:54
[2017-06-16] MEDS ORDERED: DEXTROAMPHETAMINE/AMPHETAMINE 10 MG TAB PO ONE (12:30)
[2017-06-16 13:08] LABS: HDL CHOLESTEROL 60.7 MG/DL (40.0-60.0)
[2017-06-16] MEDS ORDERED: LORazepam 2 MG/ML VIAL IV PUSH ONE (17:15)
[2017-06-16] MEDS ORDERED: LORazepam 2 MG/ML VIAL IV PUSH PRN (17:15)
--- NOTE | 2017-06-16 19:04 | HHI.PR ---
Review/Management Diagnosis Meningioma X 2 --stable. Dr Isbell note appreciated Tremors--EEG is normal during with no sign of sz. Plan start klonopin 0.5 mg bid for tremor Diagnosis/Plan: Subjective Subjective Comments After walking today, patient developed generalized tremulousness activity. EEG during this is normal with no sign of epileptiform activity Active Medications Current Medications Medications (Trade) Dose Ordered Sig/Sb Route Start Time Stop Time Status Last Admin (NS Flush) 2 ml UNSCH PRN IV FLUSH 06/14/17 12:45 (Eliquis) 2.5 mg BID PO 06/15/17 09:00 06/16/17 10:19 (Lipitor) 20 mg HS PO 06/14/17 23:00 06/15/17 21:30 (Symbicort 160-4.5 Mcg Inh) 2 puff Q12HR INH 06/14/17 23:00 06/16/17 10:19 (Lexapro) 20 mg DAILY PO 06/15/17 09:00 06/16/17 10:20 (Cortef) 5 mg HS PO 06/14/17 23:00 (Cortef) 15 mg DAILY PO 06/15/17 09:00 06/16/17 10:19 (Trileptal) 600 mg BID PO 06/14/17 23:00 06/16/17 10:20 (Protonix) 40 mg DAILY PO 06/15/17 09:00 06/16/17 10:19 (Isoptin Sr) 120 mg DAILY PO 06/15/17 09:00 06/16/17 10:20 (Aspirin Chew) 81 mg DAILY PO 06/16/17 09:00 06/16/17 10:19 (Synthroid) 88 mcg DAILY@0600 PO 06/17/17 06:00 (Adderall) 10 mg DAILY PO 06/17/17 09:00 (Ativan Inj) 1 mg Q15M PRN IV PUSH 06/16/17 17:15 Allergies Allergies Coded Allergies hydrocodone (Unverified Allergy, Severe, Itching, 03/01/17) meperidine (Unverified Allergy, Severe, Nausea/Vomiting, 03/01/17) topiramate (Unverified Allergy, Unknown, INCREASED HEART RATE, 03/01/17) fluticasone (Unverified Adverse Reaction, Severe, RESP FAILURE, 02/09/17) fluticasone furoate (Unverified Adverse Reaction, Severe, RESP FAILURE, ) salmeterol (Unverified Adverse Reaction, Severe, RESP FAILURE, 02/09/17) Review of Systems All other ROS: ROS reviewed as documented in chart Exam I&O / VS Vital Signs Date Time Temp Pulse Resp B/P (MAP) Pulse Ox O2 Delivery O2 Flow Rate FiO2 06/16/17 16:22 85 06/16/17 16:13 98.6 85 18 123/62 (82) 95 06/16/17 13:09 93 06/16/17 11:29 98.5 98 18 123/57 (79) 93 06/16/17 08:19 75 06/16/17 07:48 97.3 76 18 116/59 (78) 94 06/16/17 04:22 98.5 80 18 129/62 (84) 95 06/16/17 04:00 78 06/16/17 00:15 98.3 84 18 118/58 (78) 95 06/15/17 23:59 82 06/15/17 20:23 98.7 88 18 117/56 (76) 95 06/15/17 20:05 85 General: Alert and Oriented, No acute distress Eye: PERRL, EOMI Respiratory: Lungs CTA Cardiology: Normal rate Musculoskeletal: ROM Neurologic: Alert, Oriented, Normal sensory, Normal motor, No focal defects, CN II-XII intact, Normal DTR's Psychiatric: Cooperative, Appropriate mood & affect, Normal judgement Exam Comments alert, speech is fluent, comprehension is normal. CN intact MOTOR -- no focal weakness, no drift Has tremors of head and BUE Objective Micro and Labs Laboratory Tests Test 06/16/17 11:35 Triglycerides Level 174 Cholesterol Level 158 LDL Cholesterol 63 HDL Cholesterol 60.7 Cholesterol/HDL Ratio 2.60 Jayy Nuñez PhD Jun 16, 2017 19:04
--- NOTE | 2017-06-16 19:31 | ECHRPT ---
Indication: TIA CONCLUSIONS The left ventricular systolic function is normal with an estimated ejection fraction in the range of 60-65%. Normal left ventricular size. Wall thickness is normal. No regional wall motion abnormalities are present. Trace mitral valve regurgitation. There is trace tricuspid valve regurgitation. The estimated pulmonary arterial pressure is 30 mmHg. BP: 138 / 65 HR: 94 Rhythm: Sinus MEASUREMENTS (Male / Female) Normal Values Technical Quality:Fair 2D ECHO LV Diastolic Diameter PLAX 5.0 cm 4.2 - 5.9 / 3.9 - 5.3 cm LV Systolic Diameter PLAX 3.4 cm IVS Diastolic Thickness 1.0 cm 0.6 - 1.0 / 0.6 - 0.9 cm LVPW Diastolic Thickness 1.0 cm 0.6 - 1.0 / 0.6 - 0.9 cm LV Relative Wall Thickness 0.4 RV Internal Dim ED PLAX 2.3 cm LVOT Diameter 2.0 cm LA Systolic Diameter LX 3.8 cm 3.0 - 4.0 / 2.7 - 3.8 cm LV Ejection Fraction MOD 4C 59.7 % LV Cardiac Index MOD 4C 1795.8 cm/minm LV Ejection Fraction 4C AL 66.0 % LV Cardiac Index 4C AL 2051.4 cm/minm M-MODE Aortic Root Diameter MM 3.3 cm AV Cusp Separation MM 2.0 cm DOPPLER AV Peak Velocity 194.0 cm/s AV Peak Gradient 15.1 mmHg LVOT Peak Velocity 136.0 cm/s LVOT Peak Gradient 7.4 mmHg AV Area Cont Eq pk 2.2 cm MV Area PHT 3.0 cm Mitral E Point Velocity 96.7 cm/s Mitral A Point Velocity 87.9 cm/s Mitral E to A Ratio 1.1 LV E' Lateral Velocity 10.2 cm/s Mitral E to LV E' Lateral Ratio 9.5 LV E' Septal Velocity 8.2 cm/s Mitral E to LV E' Septal Ratio 11.8 TR Peak Velocity 223.0 cm/s TR Peak Gradient 19.9 mmHg Right Atrial Pressure 10.0 mmHg Pulmonary Artery Systolic Pressu 29.9 mmHg Right Ventricular Systolic Press 29.9 mmHg PV Peak Velocity 122.0 cm/s PV Peak Gradient 6.0 mmHg FINDINGS LEFT VENTRICLE The left ventricular systolic function is normal with an estimated ejection fraction in the range of 60-65%. Normal left ventricular size. Wall thickness is normal. No regional wall motion abnormalities are present. RIGHT VENTRICLE Normal right ventricular size and systolic function. LEFT ATRIUM The left atrial size is normal. RIGHT ATRIUM The right atrial size is normal. ATRIAL SEPTUM Normal atrial septal thickness without atrial level shunting by limited color doppler interrogation. AORTA The aortic root and proximal ascending aorta are normal in size on limited imaging. MITRAL VALVE Structurally normal mitral valve. Trace mitral valve regurgitation. AORTIC VALVE Trileaflet aortic valve. No aortic valve stenosis or regurgitation. TRICUSPID VALVE Structurally normal tricuspid valve. There is trace tricuspid valve regurgitation. The estimated pulmonary arterial pressure is 29.9 mmHg. PULMONARY VALVE No pulmonary valve regurgitation or stenosis. VESSELS The inferior vena cava is normal in size. PERICARDIUM No pericardial effusion. Carlos Munoz MD, FACC (Electronically Signed) Final Date:16 June 2017 19:29
[2017-06-16] MEDS ORDERED: levETIRAcetam 500 MG TAB PO SCH (21:00)
[2017-06-16] MEDS ORDERED: clonazePAM 0.5 MG TAB PO SCH (21:00)
[2017-06-16] MEDS: ATORVASTATIN 20 MG TAB PO SCH (21:20)
[2017-06-17 00:46] VITALS: BP 121/62; PULSE 73; RESP 18; TEMP 97.8; O2SAT 95
[2017-06-17 04:29] VITALS: BP 128/67; PULSE 71; RESP 18; TEMP 98.3; O2SAT 93
--- NOTE | 2017-06-17 05:15 | MG ---
cc: LO GARCIA M.D. Lab No: Date: 06/16/2017 Age: Sex: F Race: TECHNIQUE 17 channel EEG. DESCRIPTION The background rhythm reveals a symmetrical alpha rhythm. The frequency is 8-10 Hz. Amplitude is 20-30 microvolts. There are occasional episodes of muscle artifact. There are no lateralizing features seen. There are no epileptiform discharges present. INTERPRETATION This is a normal EEG. MD DIPAK Avila/SSB /8:01 PM /5:10 AM
[2017-06-17] MEDS ORDERED: LEVOTHYROXINE SODIUM 88 MCG TAB PO SCH (06:00)
--- NOTE | 2017-06-17 06:16 | MG ---
cc: HOLLIE PERALTA MD Lab No: [id number] DATE: 06/16/2017 Age: Sex: F Race: DATE OF 1955 INDICATIONS FOR PROCEDURE History of seizure activity. FINDINGS 6-7 Hz activity, 20-40 microvolts. Increased myogenic artifact noted in the frontal channels. Attenuation with background slowing reveals a drowsy state. Reasonably good driving with photic stimulation. Single lead EKG shows sinus rhythm. Rare waveforms in the right frontotemporal region. INTERPRETATION Awake, drowsy EEG improved from previous earlier EEG. Clinical correlation. Hollie Peralta MD MG/SSB /8:40 PM /6:04 AM
[2017-06-17 07:09] LABS: AUTOMATED NEUTROPHIL # 3.6 TH/MM3 (1.8-7.7); BASOPHIL # 0.1 TH/MM3 (0-0.2); EOSINOPHIL # 0.1 TH/MM3 (0-0.4); EOSINOPHIL % 1.7 % (0.0-4.0); HEMATOCRIT 35.7 % (35.0-46.0); HEMO FLAGS DIFF FINAL; LYMPH % 31.1 % (9.0-44.0); LYMPHOCYTE # 1.9 TH/MM3 (1.0-4.8); MEAN CELL VOLUME 89.7 FL (80.0-100.0); MEAN CORPUSCULAR HEMOGLOBIN 29.1 PG (27.0-34.0); MEAN CORPUSCULAR HGB CONC 32.4 % (32.0-36.0); MONO % 8.3 % (0.0-8.0); NEUT % 57.9 % (16.0-70.0); PLATELET COUNT 327 TH/MM3 (150-450); RED BLOOD COUNT 3.98 MIL/MM3 (4.00-5.30); RED CELL DISTRIBUTION WIDTH 15.7 % (11.6-17.2); WHITE BLOOD COUNT 6.2 TH/MM3 (4.0-11.0)
[2017-06-17 07:37] LABS: ALT (GPT) 22 U/L (10-53); ANION GAP 8 MEQ/L (5-15); AST (GOT) 13 U/L (15-37); BICARBONATE 27.3 MEQ/L (21.0-32.0); BLOOD UREA NITROGEN 19 MG/DL (7-18); CHLORIDE 109 MEQ/L (98-107); GLOMERULAR FILTRATION RATE 74 ML/MIN (>89); POTASSIUM 3.9 MEQ/L (3.5-5.1); SODIUM (NA) 144 MEQ/L (136-145)
[2017-06-17 07:39] LABS: ALKALINE PHOSPHATASE 79 U/L (45-117); TOTAL BILIRUBIN ADULT 0.4 MG/DL (0.2-1.0)
[2017-06-17 08:22] VITALS: PULSE 81
[2017-06-17 08:27] VITALS: BP 112/60; PULSE 68; RESP 18; TEMP 98.2; O2SAT 96
[2017-06-17] MEDS ORDERED: DEXTROAMPHETAMINE/AMPHETAMINE 10 MG TAB PO SCH (09:00)
[2017-06-17] MEDS: PANTOPRAZOLE SOD 40 MG DELAYED RELEASE TAB PO SCH (09:26)
[2017-06-17] MEDS: VERAPAMIL HCL 120 MG SUSTAINED RELEASE TAB PO SCH (09:26)
[2017-06-17] MEDS: ASPIRIN 81 MG CHEW TAB PO SCH (09:26)
[2017-06-17] MEDS: OXcarbazepine 600 MG TAB PO SCH (09:28)
[2017-06-17] MEDS: HYDROCORTISONE 10 MG TAB PO SCH (09:29)
[2017-06-17] MEDS: APIXABAN 2.5 MG TABLET PO SCH (09:29)
[2017-06-17] MEDS: BUDESONIDE-FORMOTEROL 160/4.5 MCG INHALER INH SCH (09:30)
[2017-06-17] MEDS: ESCITALOPRAM OXALATE 20 MG TAB PO SCH (09:33)
--- NOTE | 2017-06-17 10:27 | HHI.PR ---
Review/Management Diagnosis Meningioma X 2 --stable. Dr Isbell note appreciated Tremors--EEG is normal during with no sign of sz. Plan ok from neurology standpoint to discharge home and follow up with her physician at [facility] Diagnosis/Plan: Subjective Subjective Comments No acute events reported Patient is ambulating better with PT. Feels tremulous after ambulating. Active Medications Current Medications Medications (Trade) Dose Ordered Sig/Sb Route Start Time Stop Time Status Last Admin (NS Flush) 2 ml UNSCH PRN IV FLUSH 06/14/17 12:45 (Eliquis) 2.5 mg BID PO 06/15/17 09:00 06/17/17 09:29 (Lipitor) 20 mg HS PO 06/14/17 23:00 06/16/17 21:20 (Symbicort 160-4.5 Mcg Inh) 2 puff Q12HR INH 06/14/17 23:00 06/17/17 09:30 (Lexapro) 20 mg DAILY PO 06/15/17 09:00 06/17/17 09:33 (Cortef) 5 mg HS PO 06/14/17 23:00 06/16/17 21:20 (Cortef) 15 mg DAILY PO 06/15/17 09:00 06/17/17 09:29 (Trileptal) 600 mg BID PO 06/14/17 23:00 06/17/17 09:28 (Protonix) 40 mg DAILY PO 06/15/17 09:00 06/17/17 09:26 (Isoptin Sr) 120 mg DAILY PO 06/15/17 09:00 06/17/17 09:26 (Aspirin Chew) 81 mg DAILY PO 06/16/17 09:00 06/17/17 09:26 (Synthroid) 88 mcg DAILY@0600 PO 06/17/17 06:00 06/17/17 06:00 (Adderall) 10 mg DAILY PO 06/17/17 09:00 06/17/17 09:27 (Ativan Inj) 1 mg Q15M PRN IV PUSH 06/16/17 17:15 (KlonoPIN) 0.5 mg Q12HR PO 06/16/17 21:00 06/17/17 00:14 Allergies Allergies Coded Allergies hydrocodone (Unverified Allergy, Severe, Itching, 03/01/17) meperidine (Unverified Allergy, Severe, Nausea/Vomiting, 03/01/17) topiramate (Unverified Allergy, Unknown, INCREASED HEART RATE, 03/01/17) fluticasone (Unverified Adverse Reaction, Severe, RESP FAILURE, 02/09/17) fluticasone furoate (Unverified Adverse Reaction, Severe, RESP FAILURE, ) salmeterol (Unverified Adverse Reaction, Severe, RESP FAILURE, 02/09/17) Review of Systems All other ROS: ROS reviewed as documented in chart Exam I&O / VS Vital Signs Date Time Temp Pulse Resp B/P (MAP) Pulse Ox O2 Delivery O2 Flow Rate FiO2 06/17/17 08:27 98.2 68 18 112/60 (77) 96 06/17/17 08:22 81 06/17/17 04:29 98.3 71 18 128/67 (87) 93 06/17/17 00:46 97.8 73 18 121/62 (81) 95 06/16/17 22:49 98.6 85 18 144/75 (98) 96 06/16/17 16:22 85 06/16/17 16:13 98.6 85 18 123/62 (82) 95 06/16/17 13:09 93 06/16/17 11:29 98.5 98 18 123/57 (79) 93 General: Alert and Oriented, No acute distress Eye: PERRL, EOMI Respiratory: Lungs CTA Cardiology: Normal rate Musculoskeletal: ROM Neurologic: Alert, Oriented, Normal sensory, Normal motor, No focal defects, CN II-XII intact, Normal DTR's Psychiatric: Cooperative, Appropriate mood & affect, Normal judgement Exam Comments alert, speech fluent Cn intact MOTOR 5/5 BUE and BLE Objective Micro and Labs Laboratory Tests Test 06/16/17 11:35 06/17/17 06:10 Triglycerides Level 174 Cholesterol Level 158 LDL Cholesterol 63 HDL Cholesterol 60.7 Cholesterol/HDL Ratio 2.60 White Blood Count 6.2 Red Blood Count 3.98 Hemoglobin 11.6 Hematocrit 35.7 Mean Corpuscular Volume 89.7 Mean Corpuscular Hemoglobin 29.1 Mean Corpuscular Hemoglobin Concent 32.4 Red Cell Distribution Width 15.7 Platelet Count 327 Mean Platelet Volume 7.4 Neutrophils (%) (Auto) 57.9 Lymphocytes (%) (Auto) 31.1 Monocytes (%) (Auto) 8.3 Eosinophils (%) (Auto) 1.7 Basophils (%) (Auto) 1.0 Neutrophils # (Auto) 3.6 Lymphocytes # (Auto) 1.9 Monocytes # (Auto) 0.5 Eosinophils # (Auto) 0.1 Basophils # (Auto) 0.1 CBC Comment DIFF FINAL Differential Comment Blood Urea Nitrogen 19 Creatinine 0.79 Random Glucose 81 Total Protein 5.5 Albumin 2.8 Calcium Level 8.6 Alkaline Phosphatase 79 Aspartate Amino Transf (AST/SGOT) 13 Alanine Aminotransferase (ALT/SGPT) 22 Total Bilirubin 0.4 Sodium Level 144 Potassium Level 3.9 Chloride Level 109 Carbon Dioxide Level 27.3 Anion Gap 8 Estimat Glomerular Filtration Rate 74 Diagnostic Tests EEG yesterday normal Spencer Padgett MD Jun 17, 2017 10:27
[2017-06-17 12:13] VITALS: BP 125/64; PULSE 92; RESP 18; TEMP 98; O2SAT 96
[2017-06-17 13:04] VITALS: PULSE 89
--- NOTE | 2017-06-17 14:30 | HHI.PR ---
Subjective Remarks no complains of headache, nausea or vomiting afebrile Objective Vitals Vital Signs Date Time Temp Pulse Resp B/P (MAP) Pulse Ox O2 Delivery O2 Flow Rate FiO2 06/17/17 13:04 89 06/17/17 12:13 98.0 92 18 125/64 (84) 96 06/17/17 08:27 98.2 68 18 112/60 (77) 96 06/17/17 08:22 81 06/17/17 04:29 98.3 71 18 128/67 (87) 93 06/17/17 00:46 97.8 73 18 121/62 (81) 95 06/16/17 22:49 98.6 85 18 144/75 (98) 96 06/16/17 16:22 85 06/16/17 16:13 98.6 85 18 123/62 (82) 95 Result Diagram: 06/17/17 0610 06/17/17 0610 Imaging Last Impressions Carotid Artery Ultrasound 06/16/17 0000 Signed Impressions: Service Date/Time: Friday, June 16, 2017 08:22 - CONCLUSION: Negative examination for a hemodynamically significant carotid stenosis. No significant progression from comparison study. Board Certified Radiologist. This report was verified electronically. Head Magnetic Resonance Angiography 06/15/17 0000 Signed Impressions: Service Date/Time: Thursday, June 15, 2017 10:52 - CONCLUSION: Normal examination. Baudilio Bahena Jr., MD Brain MRI 06/15/17 0000 Signed Impressions: Service Date/Time: Thursday, June 15, 2017 10:52 - CONCLUSION: 1. Stable two masses as described above. 2. No new masses are identified. 3. There is no evidence of any acute stroke. Simone Bravo MD Head CT 06/14/17 1244 Signed Impressions: Service Date/Time: Wednesday, June 14, 2017 14:15 - CONCLUSION: 1. No acute intracranial abnormality. 2. 2 stable meningiomas. Baudilio Bahena Jr., MD Objective Remarks awake and alert,oriented x 3 anciteric, pupils equally reactive to light EOM full range of motion A/P Problem List: (1) Balance problem ICD Code: R26.89 - Other abnormalities of gait and mobility (2) History of meningioma ICD Code: Z86.018 - Personal history of other benign neoplasm Assessment and Plan 62-year-old female who presents to the ED with complaints of changes in speech along with balance initially began Wednesday of this week however worse since this morning. Patient has a past medical history of meningioma in the brain with radiation treatment, previously removed in [facility]. She is under the care of neurologist at [facility]. Slurred speech/dysarthria/balance problems- per patient improved- baseline History of meningioma - Patient has a history of meningioma which was previously removed in [facility] and s/p radiation treatment - Head CT scan viewed with no acute intracranial abnormality, stable meningiomas - MRI revealed 2 stable masses, no new masses visualized - Neurology consulted, appreciate assistance. Started on ASA 81mg. Neurosurgery consulted for possibility of right lateral ventricle meningioma causing CSF outflow obstruction. Echo and Carotid US ordered. Carotid US unremarkable. - EEG and 2D echo pending - Neuro checks - fall and seizure precautions - PT recommending rehab - patient declines but is willing to have PT come to the house. 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 TSH low. Initially decreased dose of Synthroid but patient states she was told to go by the T4 per her laminator printed circuit boards at [facility]. - previous home dose resumed at 88mcg. Recommend follow up with regular laminator printed circuit boards at [facility] as outpatient. VTE - Patient is on Eliquis DC home today Home with home [facility]- CM consult per patient has DMEs at home FF up with Dr. Ortiz- PCP next week Jean Alcazar MD Jun 17, 2017 14:30
[2017-06-17] MEDS ORDERED: CLON.5 PO (14:53)
--- NOTE | 2017-06-17 14:55 | HHI.DS ---
Discharge Summary Admission Date Jun 16, 2017 at 17:51 Discharge Date: Jun 17, 2017 Admitting Diagnosis Altered Mental status. Brain tumor. (1) History of meningioma ICD Code: Z86.018 - Personal history of other benign neoplasm Diagnosis: Principal (2) Balance problem ICD Code: R26.89 - Other abnormalities of gait and mobility Diagnosis: Principal Procedures none Brief History - From Admission Written by Mitch Cortes, acting as scribe for Dr. Milton on 06/14/17 at 17: 58. 62-year-old female who presents to the ED with complaints of changes in speech along with balance initially began Wednesday of this week however worse since this morning. Patient has a past medical history of meningioma in the brain which was previously removed in [facility]. She continues to follow-up with neurosurgery at [facility] her regular neurologist is Dr. Riley. Patient reports that she has also been experiencing tremors in the past week along with the sensation of pins and needles in bilateral hands. She states that she began having issues on Wednesday with normal walking and felt as if her balance was off. She has also noted that she has small hand tremors, no noted weakness. She denies any headaches, nausea, vomiting, diarrhea. Does report photosensitivity which she has history of, she also has a history of blurred vision. Feels that her speech is changed and she has difficulty explaining things. Her is at bedside and hopes with provide some of her history. CBC/BMP: 06/17/17 0610 06/17/17 0610 Significant Findings Laboratory Tests Test 06/15/17 15:53 06/16/17 11:35 06/17/17 06:10 Triglycerides Level 153 MG/DL (42-150) 174 MG/DL (42-150) HDL Cholesterol 60.7 MG/DL (40.0-60.0) Red Blood Count 3.98 MIL/MM3 (4.00-5.30) Monocytes (%) (Auto) 8.3 % (0.0-8.0) Blood Urea Nitrogen 19 MG/DL (7-18) Total Protein 5.5 GM/DL (6.4-8.2) Albumin 2.8 GM/DL (3.4-5.0) Aspartate Amino Transf (AST/SGOT) 13 U/L (15-37) Chloride Level 109 MEQ/L (98-107) Estimat Glomerular Filtration Rate 74 ML/MIN (>89) Imaging Last Impressions Carotid Artery Ultrasound 06/16/17 0000 Signed Impressions: Service Date/Time: Friday, June 16, 2017 08:22 - CONCLUSION: Negative examination for a hemodynamically significant carotid stenosis. No significant progression from comparison study. Board Certified Radiologist. This report was verified electronically. Head Magnetic Resonance Angiography 06/15/17 0000 Signed Impressions: Service Date/Time: Thursday, June 15, 2017 10:52 - CONCLUSION: Normal examination. Baudilio Bahena Jr., MD Brain MRI 06/15/17 0000 Signed Impressions: Service Date/Time: Thursday, June 15, 2017 10:52 - CONCLUSION: 1. Stable two masses as described above. 2. No new masses are identified. 3. There is no evidence of any acute stroke. Simone Bravo MD Head CT 06/14/17 1244 Signed Impressions: Service Date/Time: Wednesday, June 14, 2017 14:15 - CONCLUSION: 1. No acute intracranial abnormality. 2. 2 stable meningiomas. Baudilio Bahena Jr., MD PE at Discharge awake and alert,oriented x 3 anicteric, pupils equally reactive to light, speech clear lungs clear regular rhythm EOM full range of motion no facial asymmetry motor equal ambulates with a cane or walker baseline Pt update on day of discharge speech clear no complains states she has DMe at home- walker and cane [facility] PT/nuring visits states she ff up with Dr. Ortiz and goes to [facility] for neurology and neurosurgery ff up- has appot first week of June- instructed her to call to make an earlier appt Hospital Course 62-year-old female who presents to the ED with complaints of changes in speech along with balance initially began Wednesday of this week however worse since this morning. Patient has a past medical history of meningioma in the brain with radiation treatment, previously removed in [facility]. She is under the care of neurologist at [facility]. Slurred speech/dysarthria/balance problems- per patient improved- baseline History of meningioma - Patient has a history of meningioma which was previously removed in [facility] and s/p radiation treatment - Head CT scan viewed with no acute intracranial abnormality, stable meningiomas - MRI revealed 2 stable masses, no new masses visualized - Neurology consulted, appreciate assistance. Started on ASA 81mg. Neurosurgery consulted for possibility of right lateral ventricle meningioma causing CSF outflow obstruction. Echo and Carotid US ordered. Carotid US unremarkable. - EEG and 2D echo pending - Neuro checks - fall and seizure precautions - PT recommending rehab - patient declines but is willing to have PT come to the house. 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 TSH low. Initially decreased dose of Synthroid but patient states she was told to go by the T4 per her hub lead at [facility]. - previous home dose resumed at 88mcg. Recommend follow up with regular hub lead at [facility] as outpatient. VTE - Patient is on Eliquis DC home today Home with home [facility]- CM consult per patient has DMEs at home FF up with Dr. Ortiz- PCP next week Pt Condition on Discharge: Stable Discharge Disposition: Disch w/ Home Health Serv Discharge Time: <= 30 minutes Discharge Instructions DIET: Follow Instructions for: Heart Healthy Diet Speech Therapy-Diet Recommends: Regular Activities you can perform: Weight Bearing as Cee Activities to Avoid: Prolonged Standing, Strenuous Activity Follow up Referrals: Neurology - 1 Week with [facility] PCP Follow-up - 06/22/17 with Angel New Medications: Clonazepam (Klonopin) 0.5 Mg Tab 0.5 MG PO Q12HR for anxiety for 7 Days, #14 TAB Continued Medications: Acetaminophen (Mapap Extra Strength) 500 Mg Tab 1000 MG PO Q4-6H PRN for PAIN, TAB 0 Refills Albuterol 18 GM Inh (Ventolin Hfa 18 GM Inh) 90 Mcg/Act Aer 2 PUFF INH Q6H PRN for SHORTNESS OF BREATH, #1 INHALER 0 Refills Amphetamine-Dextroamphetamine (Adderall) 10 Mg Tab 10 MG PO DAILY for Hyperactivity Control, #30 TAB 0 Refills Avoid late evening doses. Space doses at least 4 to 6 hours if more than once/day dosing. Apixaban (Eliquis) 2.5 Mg Tab 2.5 MG PO BID for Blood Clot Prevention, TAB 0 Refills Atorvastatin (Atorvastatin) 20 Mg Tab 20 MG PO HS for Cholesterol Management, #30 TAB 0 Refills Budesonide-Formoterol Inh (Symbicort Inh) 160-4.5 Mcg/Act Aero 2 PUFF INH Q12HR, #1 INHALER 0 Refills Cholecalciferol (Vitamin D3) 1,000 Unit Tab 1000 UNITS PO DAILY for Nutritional Supplement, #1 BOTTLE 0 Refills Cyanocobalamin Inj (Cyanocobalamin Inj) 1,000 Mcg/Ml Inj 1000 MCG IM Q30D, #1 VIAL 0 Refills Escitalopram (Lexapro) 20 Mg Tab 20 MG PO DAILY, TAB [address] (Nexium) 40 Mg Capdr 40 MG PO DAILY, CAP 0 Refills Hydrocortisone (Hydrocortisone) 10 Mg Tab 10 MG PO DAILY, #30 TAB 0 Refills Take with food to decrease GI upset Levothyroxine (Levothyroxine) 88 Mcg Tab 88 MCG PO DAILY for Thyroid, #30 TAB 0 Refills Oxcarbazepine (Trileptal) 600 Mg Tab 600 MG PO BID for Seizure Control, #60 TAB 0 Refills Oyster Shell (Calcium) 500 Mg Tab 500 MG PO DAILY Verapamil HCl ER (Verapamil HCl ER) 120 Mg Cap PO DAILY Vitamin E (E-400) 400 Unit Cap 400 UNITS PO DAILY Discontinued Medications: Lorazepam (Lorazepam) 1 Mg Tab 1 MG PO Q6H PRN for ANXIETY, TAB 0 Refills Jean Alcazar MD Jun 17, 2017 14:55
== END 2017-06-17 16:26 | disposition home health service (06) | DRG 92 ==
LOC: NEPC 12:26 → NEDA 16:55 → NEPGCP 19:50 → OBSVTOIN 06-16 17:51
PROVIDERS: ADMIT Internal Medicine; ATTEND Internal Medicine
DX: R26.89 Other abnormalities of gait and mobility (principal); I47.1 Supraventricular tachycardia; G40.909 Epilepsy, unspecified, not intractable, without status epilepticus; R20.0 Anesthesia of skin; R25.1 Tremor, unspecified; Z86.011 Personal history of benign neoplasm of the brain; Z92.3 Personal history of irradiation; J45.909 Unspecified asthma, uncomplicated; E03.9 Hypothyroidism, unspecified; F43.10 Post-traumatic stress disorder, unspecified; Z86.718 Personal history of other venous thrombosis and embolism; Z86.711 Personal history of pulmonary embolism; Z79.02 Long term (current) use of antithrombotics/antiplatelets
CPT/HCPCS: 70450; 70544; 70553; 80053; 80061; 84439; 84443; 84481; 85025; 85610; 85730; 93005; 93306; 93880; 95819; 96374; 96375; A9579; G0378; G8987-GO; G8987-GP; G8988-GO; G8988-GP; G8989-GO; G8996-GN; G8997-GN; J1100; J2060

== ENCOUNTER → 2017-07-05 | Outpatient (CLI) | payer OTHER ==
[~2017-07-05] MED LIST changes: +ADDE10 PO; +CEPH500C PO; +CLON.5 PO; +DEXA4TAB PO; +HYDR10TA65 PO; -HYDR5TAB64 PO; -LORA1TAB12 PO; -MODA100T9 PO; +RANI150T PO
[2017-07-05 13:01] LABS: AUTOMATED NEUTROPHIL # 9.3 TH/MM3 (1.8-7.7); BASOPHIL # 0.1 TH/MM3 (0-0.2); BASOPHIL % 0.7 % (0.0-2.0); EOSINOPHIL # 0.1 TH/MM3 (0-0.4); EOSINOPHIL % 1.1 % (0.0-4.0); HEMATOCRIT 41.5 % (35.0-46.0); HEMOGLOBIN 13.7 GM/DL (11.6-15.3); MEAN PLATELET VOLUME 7.5 FL (7.0-11.0); MONO % 8.1 % (0.0-8.0); NEUT % 74.1 % (16.0-70.0); PLATELET COUNT 332 TH/MM3 (150-450); RED BLOOD COUNT 4.55 MIL/MM3 (4.00-5.30); RED CELL DISTRIBUTION WIDTH 15.9 % (11.6-17.2); WHITE BLOOD COUNT 12.6 TH/MM3 (4.0-11.0)
== END ==
LOC: OLAB 11:39
PROVIDERS: ATTEND Internal Medicine
DX: J45.909 Unspecified asthma, uncomplicated (principal)
CPT/HCPCS: 36415; 85025; 87070; 87205

== ENCOUNTER 2017-07-13 11:44 | Emergency (ER) | payer OTHER ==
[~2017-07-13] VITALS: Ht 165.1 cm; Wt 97.9 kg
[2017-07-13 11:47] VITALS: BP 138/79; PULSE 103; RESP 20; TEMP 97.9; O2SAT 98
[2017-07-13 12:08] VITALS: O2SAT 96
--- NOTE | 2017-07-13 12:27 | PD ---
HPI Chief Complaint: Neuro Symptoms/ Deficits Time Seen by Provider: 12:00 Travel History International Travel<30 days: No Contact w/Intl Traveler<30days: No Traveled to known affect area: No History of Present Illness HPI 62-year-old female that presents to the ED for evaluation of neuro symptoms. Per patient she has been having trouble speaking in numbness in tingling to she has been having trouble speaking in numbness in tingling to her right side of her left face as well as to her throat in chest with no pain since around 945 this morning. Per patient she has a history of meningioma since she was not recently admitted in May for the same. Per patient she got concerned because yesterday she had the same symptoms in she was not told to take Decadron by her neurologist in an this seemed to improve without completely undone today the symptoms became more significant witches were prompted evaluation. Per patient she spoke with her neurologist who recommended that she comes here to get evaluated. She someone of good historian she is actually able to speak very well with the exception that he takes a while for her to speak. She answers all questions appropriately. She has a history of previous PEs takes Eliquis for it. She took her Eliquis on all her medications prescribed to her this morning. She follows with Dr. Riley for neurology. She denies any numbness or weakness to her legs or arms. PFSH Past Medical History Hx Anticoagulant Therapy: Yes (ELIQUIS) Asthma: Yes Blood Disorders: No Anxiety: Yes Depression: Yes (PTSD) Heart Rhythm Problems: Yes (SVT) Cancer: No Cardiac Catheterization: Yes Cardiovascular Problems: Yes (mitral/tricupsid valve prolapse) High Cholesterol: Yes Chemotherapy: No Chest Pain: No Congestive Heart Failure: No COPD: No Cerebrovascular Accident: Yes (2016) Diabetes: No Diminished Hearing: No Endocrine: No Gastrointestinal Disorders: Yes (ANAL POUCH (ULCERTIVE COLITIS/ TOT. 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) Menopausal: Yes : 4 Para: 3 Miscarriage: 1 Past Surgical History Abdominal Surgery: Yes (TOTAL COLECTOMY/small bowel resection) AICD: No Body Medical Devices: MADELEINE FROM CCOLECTOMY,FB IN HEAD FROM CRANI Cardiac Surgery: Yes (CARDIAC CATH NO STENTS ) Coronary Artery Bypass Graft: No Ear Surgery: No Endocrine Surgery: No Eye Surgery: Yes (CATARACT SX BILAT EYE) Genitourinary Surgery: No Gynecologic Surgery: Yes (NISSA with BSO) Hysterectomy: Yes Joint Replacement: No Neurologic Surgery: Yes (CRANIOTOMY =MENIGIOMA) Oral Surgery: Yes (tooth extraction) Pacemaker: No Thoracic Surgery: No Other Surgery: Yes (REMOVAL OF MENINGIOMA) Family History Family Myocardial Infarction: Yes (FATHER) Social History Alcohol Use: No ( ) Tobacco Use: No Substance Use: No Allergies-Medications (Allergen,Severity, Reaction): Coded Allergies: hydrocodone (Verified Allergy, Severe, Itching, 07/13/17) meperidine (Verified Allergy, Severe, Nausea/Vomiting, 07/13/17) patient denies topiramate (Verified Allergy, Unknown, INCREASED HEART RATE, 07/13/17) fluticasone (Verified Adverse Reaction, Severe, RESP FAILURE, 07/13/17) DENIES RESP FAILURE STATES CHEST PRESSURE. fluticasone furoate (Verified Adverse Reaction, Severe, RESP FAILURE, 07/13) DENIES RESP FAILURE STATES CHEST PRESSURE. salmeterol (Verified Adverse Reaction, Severe, RESP FAILURE, 07/13/17) DENIES RESP FAILURE STATES CHEST PRESSURE. Reported Meds & Prescriptions Reported Meds & Active Scripts Active Reported D 2000 (Cholecalciferol) 2,000 Unit Tab 2,000 Units PO BID Ranitidine (Ranitidine HCl) 150 Mg Tab 150 Mg PO HS Dexamethasone 4 Mg Tab 4 Mg PO DAILY Hydrocortisone 10 Mg Tab 10 Mg PO DAILY Take with food to decrease GI upset Verapamil HCl ER (Verapamil HCl) 120 Mg Cap 120 Mg PO DAILY Mapap Extra Strength (Acetaminophen) 500 Mg Tab 1,000 Mg PO Q4-6H PRN Trileptal (Oxcarbazepine) 600 Mg Tab 600 Mg PO BID Levothyroxine (Levothyroxine Sodium) 88 Mcg Tab 88 Mcg PO DAILY Nexium (Esomeprazole DR) 40 Mg Capdr 40 Mg PO DAILY Eliquis (Apixaban) 2.5 Mg Tab 2.5 Mg PO BID Lexapro (Escitalopram Oxalate) 20 Mg Tab 20 Mg PO DAILY Ventolin Hfa 18 GM Inh (Albuterol Sulfate) 90 Mcg/Act Aer 2 Puff INH Q6H PRN Atorvastatin (Atorvastatin Calcium) 20 Mg Tab 20 Mg PO HS Symbicort Inh (Budesonide/Formoterol Fumarate) 160-4.5 Mcg/Act Aero 2 Puff INH Q12HR Cyanocobalamin Inj (Cyanocobalamin) 1,000 Mcg/Ml Inj 1,000 Mcg IM Q30D E-400 (Vitamin E) 400 Unit Cap 400 Units PO DAILY Calcium (Oyster Shell) 500 Mg Tab 500 Mg PO DAILY Review of Systems Except as stated in HPI: all other systems reviewed are Neg Physical Exam Narrative GENERAL: SKIN: Warm and dry. HEAD: Atraumatic. Normocephalic. EYES: Pupils equal and round 4 mms reactive to light and accommodation. No scleral icterus. No injection or drainage. ENT: No nasal bleeding or discharge. Mucous membranes pink and moist. Tongue his midline. No uvula deviation. NECK: Trachea midline. No JVD. CARDIOVASCULAR: Regular rate and rhythm. No murmurs, S3, S4. RESPIRATORY: No accessory muscle use. Clear to auscultation. Breath sounds equal bilaterally. GASTROINTESTINAL: Abdomen soft, non-tender, nondistended. Hepatic and splenic margins not palpable. MUSCULOSKELETAL: Extremities without clubbing, cyanosis, or edema. No obvious deformities. Full range of motion of the upper or lower extremities bilaterally. 2+ pulses bilaterally. Romberg test negative. pronator test negative. NEUROLOGICAL: Awake and alert oriented 4. No obvious cranial nerve deficits. Motor grossly within normal limits. Five out of 5 muscle strength in the arms and legs. Dysarthria but able to speak in full sentences with some difficulty. PSYCHIATRIC: Appropriate mood and affect; insight and judgment normal. Data Data Last Documented VS Vital Signs Date Time Temp Pulse Resp B/P (MAP) Pulse Ox O2 Delivery O2 Flow Rate FiO2 07/13/17 14:00 84 17 135/74 (94) 97 Room Air 07/13/17 11:47 97.9 Orders Orders Electrocardiogram (07/13/17 12:00) Complete Blood Count With Diff (07/13/17 12:00) Comprehensive Metabolic Panel (07/13/17 12:00) Ckmb (Isoenzyme) Profile (07/13/17 12:00) Troponin I (07/13/17 12:00) Prothrombin Time / Inr (Pt) (07/13/17 12:00) Act Partial Throm Time (Ptt) (07/13/17 12:00) Urinalysis - C+S If Indicated (07/13/17 12:00) D-Dimer (07/13/17 12:00) Magnesium (Mg) (07/13/17 12:00) Thyroid Stimulating Hormone (07/13/17 12:00) Chest, Single Ap (07/13/17 12:00) Ct Brain W/O Iv Contrast(Rout) (07/13/17 12:00) Iv Access Insert/Monitor (07/13/17 12:00) Ecg Monitoring (07/13/17 12:00) Oximetry (07/13/17 12:00) Dexamethasone Inj (Decadron Inj) (07/13/17 15:00) Ed Discharge Order (07/13/17 15:10) Labs Laboratory Tests Test 07/13/17 12:30 07/13/17 14:15 White Blood Count 14.6 TH/MM3 Red Blood Count 4.60 MIL/MM3 Hemoglobin 13.6 GM/DL Hematocrit 42.2 % Mean Corpuscular Volume 91.7 FL Mean Corpuscular Hemoglobin 29.6 PG Mean Corpuscular Hemoglobin Concent 32.2 % Red Cell Distribution Width 16.1 % Platelet Count 340 TH/MM3 Mean Platelet Volume 8.1 FL Neutrophils (%) (Auto) 91.4 % Lymphocytes (%) (Auto) 5.7 % Monocytes (%) (Auto) 2.6 % Eosinophils (%) (Auto) 0.0 % Basophils (%) (Auto) 0.3 % Neutrophils # (Auto) 13.3 TH/MM3 Lymphocytes # (Auto) 0.8 TH/MM3 Monocytes # (Auto) 0.4 TH/MM3 Eosinophils # (Auto) 0.0 TH/MM3 Basophils # (Auto) 0.0 TH/MM3 CBC Comment DIFF FINAL Differential Comment Prothrombin Time 9.9 SEC Prothromb Time International Ratio 1.0 RATIO Activated Partial Thromboplast Time 18.3 SEC D-Dimer Quantitative (PE/DVT) 0.21 MG/L FEU Blood Urea Nitrogen 27 MG/DL Creatinine 1.07 MG/DL Random Glucose 104 MG/DL Total Protein 7.3 GM/DL Albumin 3.5 GM/DL Calcium Level 9.3 MG/DL Magnesium Level 2.3 MG/DL Alkaline Phosphatase 114 U/L Aspartate Amino Transf (AST/SGOT) 22 U/L Alanine Aminotransferase (ALT/SGPT) 31 U/L Total Bilirubin 0.4 MG/DL Sodium Level 141 MEQ/L Potassium Level 4.4 MEQ/L Chloride Level 110 MEQ/L Carbon Dioxide Level 18.8 MEQ/L Anion Gap 12 MEQ/L Estimat Glomerular Filtration Rate 52 ML/MIN Total Creatine Kinase 87 U/L Troponin I LESS THAN 0.02 NG/ML Thyroid Stimulating Hormone 3rd Gen 0.017 uIU/ML Urine Color YELLOW Urine Turbidity CLEAR Urine pH 5.0 Urine Specific [place] 1.024 Urine Protein NEG mg/dL Urine Glucose (UA) NEG mg/dL Urine Ketones NEG mg/dL Urine Occult Blood NEG Urine Nitrite NEG Urine Bilirubin NEG Urine Urobilinogen LESS THAN 2.0 MG/DL Urine Leukocyte Esterase MOD Urine RBC 1 /hpf Urine WBC 7 /hpf Urine Squamous Epithelial Cells 4 /hpf Urine Bacteria FEW /hpf Urine Hyaline Casts 3 /lpf Urine Mucus FEW /lpf Microscopic Urinalysis Comment CULT NOT INDICATED MDM Medical Decision Making Medical Screen Exam Complete: Yes Emergency Medical Condition: Yes Medical Record Reviewed: Yes Interpretation(s) Last Impressions Head CT 07/13/17 1200 Signed Impressions: Service Date/Time: Thursday, July 13, 2017 12:21 - CONCLUSION: 1. No acute hemorrhage, mass effect or evidence of infarction. 2. Stable known meningiomas. Derek Padgett MD Chest X-Ray 07/13/17 1200 Signed Impressions: Service Date/Time: Thursday, July 13, 2017 13:09 - CONCLUSION: No acute cardiopulmonary abnormality is identified. Jared Edmond MD CBC & BMP Diagram 07/13/17 12:30 Total Protein 7.3, Albumin 3.5, Calcium Level 9.3, Magnesium Level 2.3, Alkaline Phosphatase 114, Aspartate Amino Transf (AST/SGOT) 22, Alanine Aminotransferase (ALT/SGPT) 31, Total Bilirubin 0.4 troponin and CKMB negative EKG shows sinus rhythm with no sign of acute ischemia or arrythmia read by me and attending Differential Diagnosis CVA versus meningioma versus brain mass versus neuropathy versus paresthesia versus focal seizure versus seizure versus PE versus normal exam Narrative Course 62-year-old female presents to the ED for evaluation of neuro symptoms. Patient has propyl examinable spent heart signs an symptoms of unclear etiology. I had my attending Dr. Bravo evaluate the patient in he agrees no stroke alert call at this time as patient's actually had symptoms since yesterday. Patient is not a TPA candidate secondary to taken Eliquis. Labs and imaging will be ordered for evaluation of possible CVA. Labs and imagings were essentially unremarkable except for meningiomas. Patient has been improving since being here in her speech has improved. I spoke with Dr. Riley over the phone who knows the patient recommended that we increase the dexamethasone to 8 mg daily instead of 4. Give a dexamethasone shot here. he recommends no admission as this is a chronic issue with the patient. I tried to call the patient's neurologist in [place] but unfortunately they were not able to get me through an also with a nurse practitioner who stated that the treatment plan seemed okay) she will recommend to follow-up with neurosurgeon in which she will try to relay the message to the patient's neurologist who apparently saw about to change practices this week. this week. This will discussed with the patient Family who agree in agreement with plan. Patient once given IV dose of dexamethasone. Patient will start to increase her dexamethasone on follow-up with neurosurgeon and get the MRI to her neurologist wanted. Follow up with PCP. See ED if worsening symptoms. Diagnosis Primary Impression: Facial paresthesia Patient Instructions: General Instructions Additional Instructions: Take dexamethasone 8 mg daily for the 3 days. See ED for worsening symptoms. Follow with PCP. Med/Other Pt SpecificInfo: No Change to Meds Disposition: 01 DISCHARGE HOME Condition: Stable Corby Ackerman Jul 13, 2017 12:27
--- NOTE | 2017-07-13 12:34 | RADRPT ---
EXAM DATE/TIME: 07/13/2017 12:21 [facility] COMPARISON: MRI BRAIN W & W/O CONTRAST, June 15, 2017, 10:52. CT BRAIN W/O CONTRAST, June 14, 2017, 14: 15. INDICATIONS : Left sided facial numbness, difficulty speaking. Known meningiomas. RADIATION DOSE: 41.57 CTDIvol (mGy) MEDICAL HISTORY : Cerebrovascular disease. Seizures. Hypertension.Meningioma, Menier's syndrome. SURGICAL HISTORY : Craniotomy. ENCOUNTER: Initial ACUITY: 1 day PAIN SCALE: 0/10 LOCATION: cranial TECHNIQUE: Multiple contiguous axial images were obtained of the head. Using automated exposure control and adj ustment of the mA and/or kV according to patient size, radiation dose was kept as low as reasonably a chievable to obtain optimal diagnostic quality images. DICOM format image data is available electro nically for review and comparison. FINDINGS: CEREBRUM: The ventricles are normal for age. No evidence of midline shift, hemorrhage or acute infarction. Th ere is a stable partially calcified mass in the right lateral ventricle measuring 2.1 x 1.5 cm. The s econd node mass in the medial right middle cranial fossa does not appear significant changed but is p oorly visualized due to adjacent streak artifact. No extra-axial fluid collections are seen. POSTERIOR FOSSA: The cerebellum and brainstem are intact. The 4th ventricle is midline. The cerebellopontine angle i s unremarkable. EXTRACRANIAL: The visualized portion of the orbits is intact. SKULL: The calvaria is intact. No evidence of skull fracture. CONCLUSION: 1. No acute hemorrhage, mass effect or evidence of infarction. 2. Stable known meningiomas. Derek Padgett MD on July 13, 2017 at 12:27 Board Certified Radiologist. This report was verified electronically.
[2017-07-13] MEDS ORDERED: CHOL1TAB35 PO (12:44)
[2017-07-13 12:49] LABS: AUTOMATED NEUTROPHIL # 13.3 TH/MM3 (1.8-7.7); BASOPHIL % 0.3 % (0.0-2.0); HEMATOCRIT 42.2 % (35.0-46.0); HEMOGLOBIN 13.6 GM/DL (11.6-15.3); LYMPH % 5.7 % (9.0-44.0); LYMPHOCYTE # 0.8 TH/MM3 (1.0-4.8); MEAN CELL VOLUME 91.7 FL (80.0-100.0); MEAN CORPUSCULAR HEMOGLOBIN 29.6 PG (27.0-34.0); MEAN CORPUSCULAR HGB CONC 32.2 % (32.0-36.0); MEAN PLATELET VOLUME 8.1 FL (7.0-11.0); MONO % 2.6 % (0.0-8.0); MONOCYTE # 0.4 TH/MM3 (0-0.9); NEUT % 91.4 % (16.0-70.0); PLATELET COUNT 340 TH/MM3 (150-450); RED CELL DISTRIBUTION WIDTH 16.1 % (11.6-17.2); WHITE BLOOD COUNT 14.6 TH/MM3 (4.0-11.0)
[2017-07-13 13:11] LABS: PROTHROMBIN TIME - PATIENT 9.9 SEC (9.8-11.6)
[2017-07-13 13:12] LABS: D-DIMER 0.21 MG/L FEU (0.00-0.50)
--- NOTE | 2017-07-13 13:50 | RADRPT ---
EXAM DATE/TIME: 07/13/2017 13:09 [facility] COMPARISON: CHEST SINGLE AP, November 03, 2016, 10:18. INDICATIONS : Confusion, shortness of breath, slurred speech. MEDICAL HISTORY : Stroke. Myocardial infarction. SURGICAL HISTORY : None. ENCOUNTER: Initial ACUITY: 1 day PAIN SCORE: 0/10 LOCATION: Bilateral chest FINDINGS: Portable AP view of the chest demonstrates a normal-sized cardiac silhouette. No effusion, consolidat ion, or pneumothorax is visualized. The bones and soft tissues demonstrate no acute abnormality. EKG lines overlie the patient. CONCLUSION: No acute cardiopulmonary abnormality is identified. Jared Edmond MD on July 13, 2017 at 13:45 Board Certified Radiologist. This report was verified electronically.
[2017-07-13 14:00] VITALS: BP 135/74; PULSE 84; RESP 17; O2SAT 97
[2017-07-13 14:09] LABS: BLOOD UREA NITROGEN 27 MG/DL (7-18); CREATININE 1.07 MG/DL (0.50-1.00); GLOMERULAR FILTRATION RATE 52 ML/MIN (>89); GLUCOSE,RANDOM 104 MG/DL (74-106)
[2017-07-13 14:10] LABS: ALBUMIN 3.5 GM/DL (3.4-5.0); TOTAL PROTEIN 7.3 GM/DL (6.4-8.2)
[2017-07-13 14:11] LABS: ALKALINE PHOSPHATASE 114 U/L (45-117); ALT (GPT) 31 U/L (10-53); BICARBONATE 18.8 MEQ/L (21.0-32.0); CALCIUM 9.3 MG/DL (8.5-10.1); CHLORIDE 110 MEQ/L (98-107); SODIUM (NA) 141 MEQ/L (136-145); TOTAL BILIRUBIN ADULT 0.4 MG/DL (0.2-1.0); TROPONIN I LESS THAN 0.02 NG/ML (0.02-0.05)
[2017-07-13 14:12] LABS: AST (GOT) 22 U/L (15-37); MAGNESIUM 2.3 MG/DL (1.5-2.5)
[2017-07-13 14:55] LABS: BACTERIA, URINE FEW /hpf; BILIRUBIN, URINE NEG (NEG); BLOOD, URINE NEG (NEG); GLUCOSE,URINE NEG (NEG); HYALINE CAST, URINE 3 /lpf (RARE); KETONE, URINE NEG (NEG); MUCUS URINE FEW /lpf (OCC); NITRITE,URINE NEG (NEG); SQUAMOUS EPITHELIAL CELL URINE 4 /hpf (0-5); URINE COLOR YELLOW (YELLW/STRAW); URINE LEUKOCYTE ESTERASE MOD (NEG)
[2017-07-13] MEDS ORDERED: DEXAMETHASONE SOD PHOS 20 MG/5 ML VIAL IV PUSH ONE (15:00)
[2017-07-13 15:29] VITALS: BP 124/61; PULSE 81; RESP 27
[2017-07-13 16:07] VITALS: BP 118/66
--- NOTE | 2017-07-14 10:48 | EKG ---
Date Performed: 07/13/2017 Time Performed: 12:36:59 PTAGE: 62 years EKG: Sinus rhythm MODERATE ST DEPRESSION ABNORMAL ECG PREVIOUS TRACING : 06/14/2017 14.59 DOCTOR: Simone Singh Interpretating Date/Time 07/14/2017 10:46:42
== END 2017-07-13 16:07 | disposition home or self-care (01) ==
LOC: NEPE 11:44
DX: R20.2 Paresthesia of skin (principal); D32.9 Benign neoplasm of meninges, unspecified; E89.0 Postprocedural hypothyroidism; E78.00 Pure hypercholesterolemia, unspecified; I10 Essential (primary) hypertension; K21.9 Gastro-esophageal reflux disease without esophagitis; F43.10 Post-traumatic stress disorder, unspecified; R94.31 Abnormal electrocardiogram [ECG] [EKG]; Z79.01 Long term (current) use of anticoagulants; Z79.899 Other long term (current) drug therapy
CPT/HCPCS: 70450; 71045; 80053; 81001; 82550; 83735; 84443; 84484; 85025; 85379; 85610; 85730; 93005; 96374; 99285; J1100

== ENCOUNTER → 2017-08-05 | Outpatient (CLI) | payer OTHER ==
[~2017-08-05] MED LIST changes: -ADDE10 PO; -CEPH500C PO; +CHOL1TAB35 PO; -CLON.5 PO; -VITA100018 PO; -ZOFR4TAB PO
[2017-08-05 09:03] LABS: ALBUMIN 3.2 GM/DL (3.4-5.0); AST (GOT) 13 U/L (15-37); BICARBONATE 29.1 MEQ/L (21.0-32.0); BLOOD UREA NITROGEN 17 MG/DL (7-18); CALCIUM 9.1 MG/DL (8.5-10.1); CHLORIDE 106 MEQ/L (98-107); CREATININE 1.04 MG/DL (0.50-1.00); GLOMERULAR FILTRATION RATE 54 ML/MIN (>89); GLUCOSE,FASTING 94 MG/DL (74-99); SODIUM (NA) 140 MEQ/L (136-145)
[2017-08-05 09:15] LABS: ALKALINE PHOSPHATASE 92 U/L (45-117); ALT (GPT) 24 U/L (10-53); CHOLESTEROL 255 MG/DL (120-200); CHOLESTEROL/ HDL RATIO 4.27 RATIO; HDL CHOLESTEROL 59.6 MG/DL (40.0-60.0); LDL CHOLESTEROL 118 MG/DL (0-99); TOTAL BILIRUBIN ADULT 0.5 MG/DL (0.2-1.0); TOTAL PROTEIN 6.4 GM/DL (6.4-8.2); TRIGLYCERIDES 388 MG/DL (42-150)
== END ==
LOC: OLAB 07:03
PROVIDERS: ATTEND Family Medicine
DX: R56.9 Unspecified convulsions (principal); F41.1 Generalized anxiety disorder; E78.5 Hyperlipidemia, unspecified; E55.9 Vitamin D deficiency, unspecified; N18.3 Chronic kidney disease, stage 3 (moderate)
CPT/HCPCS: 80053; 80061; 80183; 82306; 83970; 84443

== ENCOUNTER → 2017-08-13 | Outpatient (CLI) | payer OTHER ==
[2017-08-13 10:11] LABS: AUTOMATED NEUTROPHIL # 4.6 TH/MM3 (1.8-7.7); BASOPHIL % 0.5 % (0.0-2.0); EOSINOPHIL # 0.1 TH/MM3 (0-0.4); EOSINOPHIL % 1.8 % (0.0-4.0); HEMATOCRIT 40.8 % (35.0-46.0); HEMOGLOBIN 13.5 GM/DL (11.6-15.3); LYMPH % 21.4 % (9.0-44.0); LYMPHOCYTE # 1.4 TH/MM3 (1.0-4.8); MEAN CELL VOLUME 89.4 FL (80.0-100.0); MEAN CORPUSCULAR HEMOGLOBIN 29.6 PG (27.0-34.0); MEAN CORPUSCULAR HGB CONC 33.1 % (32.0-36.0); MEAN PLATELET VOLUME 7.2 FL (7.0-11.0); MONO % 8.6 % (0.0-8.0); MONOCYTE # 0.6 TH/MM3 (0-0.9); NEUT % 67.7 % (16.0-70.0); PLATELET COUNT 325 TH/MM3 (150-450); RED BLOOD COUNT 4.56 MIL/MM3 (4.00-5.30); RED CELL DISTRIBUTION WIDTH 15.4 % (11.6-17.2); WHITE BLOOD COUNT 6.7 TH/MM3 (4.0-11.0)
[2017-08-13 11:38] LABS: ALBUMIN 3.4 GM/DL (3.4-5.0); BICARBONATE 26.5 MEQ/L (21.0-32.0); CALCIUM 9.2 MG/DL (8.5-10.1); CREATININE 1.01 MG/DL (0.50-1.00); DIRECT BILIRUBIN ADULT 0.1 MG/DL (0.0-0.2)
[2017-08-13 12:05] LABS: INDIRECT BILIRUBIN 0.3 MG/DL (0.0-0.8); TOTAL BILIRUBIN ADULT 0.4 MG/DL (0.2-1.0); TOTAL PROTEIN 6.6 GM/DL (6.4-8.2)
== END ==
LOC: OLAB 09:51
DX: R68.89 Other general symptoms and signs (principal)
CPT/HCPCS: 36415; 80048; 80076; 80183; 82607; 82746; 84443; 85025

== ENCOUNTER → 2017-08-17 | Outpatient (CLI) | payer OTHER ==
[2017-08-17 09:33] LABS: FREE T4 0.89 NG/DL (0.76-1.46)
== END ==
LOC: OLAB 07:06 → EDSTATUS 15:13 → OLAB 15:38
DX: E03.8 Other specified hypothyroidism (principal); E27.40 Unspecified adrenocortical insufficiency
CPT/HCPCS: 36415; 82024; 82306; 82533; 84439

== ENCOUNTER 2018-06-06 02:21 | Observation (INO) ==
--- NOTE | 2018-06-06 03:01 | ED ---
HPI General Chief Complaint: Chest Pain Stated Complaint: Chest Pain Time Seen by Provider: 06/06/18 02:42 Source: patient Mode of arrival: ambulatory Limitations: no limitations History of Present Illness HPI narrative: 63-year-old female came to the emergency room brought by her with history of chest pain that started at 1:30 AM. Patient says that she was asleep and the pain woke her up. She tried to turn to her side and the pain got worse. She describes the pain as a burning sensation radiating to her back and all across her chest. Patient has history of PE and the pain felt similar with her PE in the past but she is on Eliquis for the PE and has been taking the medication like she is supposed to without missing any doses. No recent long distance travel or hospitalizations. Patient has history of brain tumor. Currently the pain is more substernal with some radiation to the back. No coronary artery disease history in the past. Related Data Home Medications Medication Instructions Recorded Confirmed albuterol sulfate [Ventolin HFA] 2 puff INHALATION Q4-6H PRN 06/06/18 06/06/18 apixaban [Eliquis] 2.5 mg PO BID 06/06/18 06/06/18 atorvastatin 20 mg PO DAILY 06/06/18 06/06/18 budesonide-formoterol [Symbicort] 2 puff INHALATION BID 06/06/18 06/06/18 escitalopram oxalate 20 mg PO DAILY 06/06/18 06/06/18 esomeprazole magnesium [Nexium 40 mg PO DAILY 06/06/18 06/06/18 24HR] hydrocortisone 10 mg PO BID 06/06/18 06/06/18 levothyroxine 88 mcg PO DAILY 06/06/18 06/06/18 prednisone 10 mg PO BID 06/06/18 06/06/18 pregabalin [Lyrica] 75 mg PO TID 06/06/18 06/06/18 verapamil 120 mg PO TID 06/06/18 06/06/18 Allergies Allergy/AdvReac Type Severity Reaction Status Date / Time hydrocodone Allergy Severe Itching Verified 06/06/18 02:31 meperidine Allergy Severe Nausea/Vomi Verified 06/06/18 02:31 ting topiramate Allergy Unknown INCREASED Verified 06/06/18 02:31 HEART RATE oxycodone Allergy Itching Verified 06/06/18 02:33 fluticasone AdvReac Severe RESP Verified 06/06/18 02:31 FAILURE fluticasone furoate AdvReac Severe RESP Verified 06/06/18 02:31 FAILURE salmeterol AdvReac Severe RESP Verified 06/06/18 02:31 FAILURE Review of Systems ROS: all other systems reviewed are negative [facility] Medical History Medical History Asthma (Acute) GERD (gastroesophageal reflux disease) (Acute) Hx of hysterectomy (Acute) Meningioma (Acute) Mitral valve prolapse (Acute) SVT (supraventricular tachycardia) (Acute) Tricuspid valve prolapse (Acute) Surgical History Surgical History H/O craniotomy (Acute) H/O total colectomy (Acute) Hx of resection of small bowel (Acute) Social History Social History Substance History: No History of Abuse Second Hand Smoke Exposure: No Smoking Status: Never smoker How Often Do You Have a Drink Containing Alcohol: Never Recent Travel in [facility] within the Last 8 Weeks: No Recent Out of Country Travel within the Last 8 Weeks: No Immunization History Tetanus Immunization: >5 Years Exam Narrative Exam Narrative: GENERAL: Awake, alert, obese, anxious, moderate distress SKIN: Focused skin assessment warm/dry. HEAD: Atraumatic. Normocephalic. EYES: Pupils equal and round. No scleral icterus. No injection or drainage. ENT: No nasal bleeding or discharge. Mucous membranes pink and moist. NECK: Trachea midline. No JVD. CARDIOVASCULAR: Regular rate and rhythm. No murmur appreciated. RESPIRATORY: No accessory muscle use. Clear to auscultation. Breath sounds equal bilaterally. GASTROINTESTINAL: Abdomen soft, non-tender, nondistended. Hepatic and splenic margins not palpable. MUSCULOSKELETAL: No obvious deformities. No clubbing. No cyanosis. No edema. NEUROLOGICAL: Awake and alert. No obvious cranial nerve deficits. Motor grossly within normal limits. Normal speech. PSYCHIATRIC: Appropriate mood and affect; insight and judgment normal. Course Initial Documented Vital Signs Temperature 97.6 F 06/06/18 02:23 Pulse Rate 89 06/06/18 02:23 Respiratory Rate 18 06/06/18 02:23 Blood Pressure 156/86 H 06/06/18 02:23 Pulse Oximetry 95 06/06/18 02:23 Last Documented Vital Signs Temperature 97.6 F 06/06/18 02:23 Pulse Rate 69 06/06/18 02:31 Respiratory Rate 10 L 06/06/18 02:31 Blood Pressure 142/73 H 06/06/18 02:31 Pulse Oximetry 97 06/06/18 02:56 Medical Decision Making MDM Narrative Medical decision making narrative: 3:03 AM awaiting for blood test result. Patient will be given morphine for her pain and will need admission for chest pain. Even though she is high risk for PE patient is on Eliquis which is appropriate treatment for PE/DVT. 3:41 AM blood test results are back and within acceptable limits. I will admit her to the chest pain center. Medical Screen Exam Complete: Yes Emergency Medical Condition: Yes Lab Data Result diagrams: 06/06/18 03:02 06/06/18 03:02 Lab Results 06/06/18 06/06/18 Range/Units 03:02 03:02 WBC 12.9 H (4.0-11.0) th/mm3 RBC 4.26 (4.00-5.30) mil/mm3 Hgb 12.5 (11.6-15.3) gm/dL Hct 38.7 (35.0-46.0) % MCV 90.8 (80.0-100.0) fL MCH 29.2 (27.0-34.0) pg MCHC 32.2 (32.0-36.0) % RDW 14.8 (11.6-17.2) % Plt Count 295 (150-450) th/mm3 MPV 8.0 (7.0-11.0) fL Neut % (Auto) 65.1 (16.0-70.0) % Lymph % (Auto) 25.1 (9.0-44.0) % [place] % (Auto) 7.6 (0.0-8.0) % Eos % (Auto) 1.8 (0.0-4.0) % Baso % (Auto) 0.4 (0.0-2.0) % Neut # (Auto) 8.4 H (1.8-7.7) th/mm3 Lymph # (Auto) 3.3 (1.0-4.8) th/mm3 [place] # (Auto) 1.0 H (0.0-0.9) th/mm3 Eos # (Auto) 0.2 (0.0-0.4) th/mm3 Baso # (Auto) 0.0 (0.0-0.2) th/mm3 WBC Differential . Differential Comment Auto diff final Sodium 144 (136-145) meq/L Potassium 4.0 (3.5-5.1) meq/L Chloride 109 H (98-107) meq/L Carbon Dioxide 27.1 (21.0-32.0) meq/L Anion Gap 8 (5-15) meq/L BUN 21 H (7-18) mg/dL Creatinine 1.12 H (0.50-1.00) mg/dL Estimated GFR 49 L (>89) mL/min Random Glucose 85 (74-106) mg/dL Calcium 8.1 L (8.5-10.1) mg/dL Total Bilirubin 0.6 (0.2-1.0) mg/dL AST 14 L (15-37) U/L ALT 22 (10-53) U/L Alkaline Phosphatase 105 (45-117) U/L Troponin I Less than 0.02 L (0.02-0.05) ng/mL Total Protein 6.4 (6.4-8.2) g/dL Albumin 3.0 L (3.4-5.0) g/dL ECG Data Attestation: I personally reviewed and interpreted this ECG as follows: Interpretation: Twelve-lead EKG was reviewed by me. Normal sinus rhythm, axis, nonspecific ST-T wave changes. Heart rate of 69 bpm. Discharge Plan Discharge Disposition Patient Disposition: ED Admit(ED Internal Use Only) Discharge Order Discharge Orders: ED Use Only Admit Order (Routine); Ordered 06/06/18 Ordered By: Jose Jones Physicians Team ED Provider: Jose Jones Rxs /Orders / Referrals /Forms Prescriptions: No Action prednisone 10 mg Tablet 10 mg PO BID RF: 0 atorvastatin 20 mg Tablet 20 mg PO DAILY RF: 0 verapamil 120 mg Tablet 120 mg PO TID RF: 0 hydrocortisone 10 mg Tablet 10 mg PO BID RF: 0 albuterol sulfate [Ventolin HFA] 90 mcg/actuation Hfa Aerosol Inhaler 2 puff INHALATION Q4-6H PRN (Reason: Respiratory Distress) RF: 0 esomeprazole magnesium [Nexium 24HR] 20 mg Capsule,Delayed Release(Dr/Ec) 40 mg PO DAILY RF: 0 escitalopram oxalate 20 mg Tablet 20 mg PO DAILY RF: 0 pregabalin [Lyrica] 75 mg Capsule 75 mg PO TID RF: 0 budesonide-formoterol [Symbicort] 160-4.5 mcg/actuation Hfa Aerosol Inhaler 2 puff INHALATION BID RF: 0 levothyroxine 88 mcg Capsule 88 mcg PO DAILY RF: 0 apixaban [Eliquis] 2.5 mg Tablet 2.5 mg PO BID RF: 0 Discharge Instructions Patient Printed Instructions: Chest Pain (ED) Discharge Interventions Interventions: Vital Signs Last Done: 06/06/18 02:31 Status ED Status: With Doctor
[2018-06-06 03:19] LABS: Baso % (Auto) 0.4 % (0.0-2.0); Eos # (Auto) 0.2 th/mm3 (0.0-0.4); Eos % (Auto) 1.8 % (0.0-4.0); Hematocrit 38.7 % (35.0-46.0); Hemoglobin 12.5 gm/dL (11.6-15.3); Lymph # (Auto) 3.3 th/mm3 (1.0-4.8); Lymph % (Auto) 25.1 % (9.0-44.0); Mean Corpuscular HGB Conc 32.2 % (32.0-36.0); Mean Corpuscular Hemoglobin 29.2 pg (27.0-34.0); Mean Corpuscular Volume 90.8 fL (80.0-100.0); Mono % (Auto) 7.6 % (0.0-8.0); Neut # (Auto) 8.4 th/mm3 (1.8-7.7); Neut % (Auto) 65.1 % (16.0-70.0); Platelet Count 295 th/mm3 (150-450); Red Blood Count 4.26 mil/mm3 (4.00-5.30); Red Cell Distribution Width 14.8 % (11.6-17.2); White Blood Count 12.9 th/mm3 (4.0-11.0)
[2018-06-06 03:31] LABS: Alanine Aminotransferase 22 U/L (10-53); Anion Gap 8 meq/L (5-15); Aspartate Aminotransferase 14 U/L (15-37); Blood Urea Nitrogen 21 mg/dL (7-18); Calcium 8.1 mg/dL (8.5-10.1); Carbon Dioxide 27.1 meq/L (21.0-32.0); Chloride 109 meq/L (98-107); Glomerular Filtration Rate 49 mL/min (>89); Glucose,Random 85 mg/dL (74-106); Sodium 144 meq/L (136-145)
[2018-06-06 03:36] LABS: Alkaline Phosphatase 105 U/L (45-117); Total Protein 6.4 g/dL (6.4-8.2)
--- NOTE | 2018-06-06 03:46 | XR ---
EXAM DATE: 06/06/2018 3:32 AM EST AGE/SEX: 63 years / Female INDICATIONS: Chest pain, shortness of breath, URI. CLINICAL DATA: This is the patient's initial encounter. Patient reports that signs and symptoms have been present for 1 day and indicates a pain score of 8/10. MEDICAL/SURGICAL HISTORY: Asthma. None. COMPARISON: 07/13/2017. FINDINGS: Single AP view the chest. Lung volumes are low. Mild bilateral lower lung zone opacity lik lambert representing atelectasis. Cardiomediastinal silhouette within normal limits. No evidence of pleu ral effusion or pneumothorax. CONCLUSION: Mild bilateral lower lung zone opacity likely representing atelectasis. Electronically signed by: Jhony Shields MD 06/06/2018 3:44 AM EST
[2018-06-06 07:11] LABS: Creatine Kinase 143 U/L (26-192)
--- NOTE | 2018-06-06 07:41 | P.HPCA ---
History of Present Illness Primary Care Physician: Marco A Arriaga MD Chief Complaint: Chest pain History of Present Illness: 63 year old female with history of pulmonary embolism, GERD, SVT, hypothyroidism , hyperlipidemia, and meningioma tumors presents to ER for further evaluation nonexertional chest pain. Onset 1 AM, discomfort woke her from sleep. Location generalized upper chest area. Characterized as a fullness. Severe pain lasted 15 minutes followed by waxing and waning mild to moderate discomfort. No particular position to make pain better or worse, was unable to "get comfortable." No associated symptoms of nausea, vomiting, diaphoresis, or worsening dyspnea. Reports one month of worsening dyspnea and recently completed antibiotics for a respiratory infection. Taking eliquis 2.5 mg BID as directed by aviation electrician, does not recall why taking half the recommended dose. Followed by Dr. Jenkins-material stress tester, Dr. Menon-hematology, and Dr. Armstrong- cardiology. Past cardiac testing No recent cardiac stress testing. Echocardiogram completed by Dr. Armstrong approximately 8 months, reported to be unremarkable. 06/16/17 Echocardiogram-The left ventricle systolic function normal with estimated ejection fraction 60-65%. Normal LV size. Wall thickness normal. Trace mitral valve regurgitation. Trace tricuspid regurgitation. No regional wall motion abnormalities present. Estimated pulmonary arterial pressure 30 mmHg. 04/23/2015 Lexiscan-Normal examination 09/21/2013 Lexiscan-1. No scintigraphic evidence of infract or ischemia. 2. No wall motion throughout with an estimated ejection fraction of 62%. Social history Known hypertension and hyperlipidemia. No known diabetes or coronary artery disease. Non-smoker. No alcohol or recreational drug use. . - Diagnosis (1) Chest pain (2) Asthma (3) GERD (gastroesophageal reflux disease) (4) History of pulmonary embolism (5) History of supraventricular tachycardia (6) Hypothyroidism (7) Seizure disorder Review of Systems All other systems reviewed negative except as stated in HPI PMFSH - History History Provided By: Patient - Medical History Medical History: Medical History (Last Updated 06/06/18 @ 09:28 by LOC Torres) Anxiety Asthma Depression GERD (gastroesophageal reflux disease) Hx of hysterectomy Hyperlipidemia Hypothyroidism Meningioma Mitral valve prolapse SVT (supraventricular tachycardia) Seizure disorder Tricuspid valve prolapse - Surgical History Surgical History: Surgical History (Last Reviewed 06/06/18 @ 03:02 by Jose Jones MD) H/O craniotomy H/O total colectomy Hx of resection of small bowel - Social History I have reviewed the patient's Social History: Yes - Tobacco History Second Hand Smoke Exposure: No Tobacco Use In Past 30 Days: No Smoking Status: Never smoker - Alcohol History How Often Do You Have a Drink Containing Alcohol: Never - Substance Use History Substance History: No History of Abuse - Travel History Recent Travel in the [place] Within the Last 8 Weeks: No Recent Travel Out of the Country Within the Last 8 Weeks: No - Immunization History Tetanus Immunization: >5 Years Medications and Allergies Active Medications: Active Medications Sodium Chloride (Ns Flush) 2 ml IV.FLUSH UNSCH PRN PRN Reason: FLUSH AFTER USING IV ACCESS Sodium Chloride (Ns Flush) 2 ml IV.FLUSH PRN PRN PRN Reason: FLUSH AFTER USING IV ACCESS Sodium Chloride (Ns Flush) 2 ml IV.FLUSH BID RODOLFO Allergies Allergy/AdvReac Type Severity Reaction Status Date / Time hydrocodone Allergy Severe Itching Verified 06/06/18 02:31 meperidine Allergy Severe Nausea/Vomi Verified 06/06/18 02:31 ting topiramate Allergy Unknown INCREASED Verified 06/06/18 02:31 HEART RATE oxycodone Allergy Itching Verified 06/06/18 02:33 fluticasone AdvReac Severe RESP Verified 06/06/18 02:31 FAILURE fluticasone furoate AdvReac Severe RESP Verified 06/06/18 02:31 FAILURE salmeterol AdvReac Severe RESP Verified 06/06/18 02:31 FAILURE Home Medications Medication Instructions Recorded Confirmed Type albuterol sulfate [Ventolin HFA] 2 puff INHALATION Q4-6H PRN 06/06/18 06/06/18 History apixaban [Eliquis] 2.5 mg PO BID 06/06/18 06/06/18 History atorvastatin 20 mg PO DAILY 06/06/18 06/06/18 History budesonide-formoterol [Symbicort] 2 puff INHALATION BID 06/06/18 06/06/18 History escitalopram oxalate 20 mg PO DAILY 06/06/18 06/06/18 History esomeprazole magnesium [Nexium 40 mg PO DAILY 06/06/18 06/06/18 History 24HR] hydrocortisone 10 mg PO BID 06/06/18 06/06/18 History levothyroxine 88 mcg PO DAILY 06/06/18 06/06/18 History prednisone 10 mg PO BID 06/06/18 06/06/18 History pregabalin [Lyrica] 75 mg PO TID 06/06/18 06/06/18 History verapamil 120 mg PO TID 06/06/18 06/06/18 History Exam Vital signs: Vital Signs 06/06/18 02:23 06/06/18 02:31 06/06/18 02:56 Temperature 97.6 F Pulse Rate 89 69 Respiratory Rate 18 10 L Blood Pressure 156/86 H 142/73 H Pulse Oximetry 95 97 97 06/06/18 05:14 Temperature 97.6 F Pulse Rate 86 Respiratory Rate 20 Blood Pressure 147/77 H Pulse Oximetry 97 Intake & Output 06/05/18 06/06/18 06/06/18 18:59 06:59 18:59 Weight 86.183 kg Other: Date of Last Bowel Movement 06/06/18 Weight On Admission 160.183 kg Narrative: GENERAL: Alert WN, WD, NAD, pleasant, overweight, female HEAD: NC, AT EYES: Sclera clear, conjunctiva without injection ENT: Mucous membranes pink and moist NECK: Supple, no masses, trachea midline CV: RRR, without murmur, rub, gallop, no JVD. RESP: Clear lungs throughout bilateral, no crackles, wheeze, rhonchi, symmetrical chest rise, nonlabored, able to speak in full sentences ABD: Soft, NT, ND, no masses, positive bowel tones EXT: Pulses +2x4, no dependent edema MS: Normal tone x4 extremities, nontender, no obvious deformities, full range of motion NEURO: Motor strength 5/5 PSYCH: A+O x3, pleasant affect, appropriate speech, mood, insight and judgment SKIN: Normal turgor, normal texture, no lesions, no rashes Results 06/06/18 03:02 06/06/18 03:02 Cardiac Enzymes 06/06/18 06/06/18 Range/Units 03:02 06:15 AST 14 L (15-37) U/L Troponin I Less than 0.02 L Less than 0.02 L (0.02-0.05) ng/mL CBC 06/06/18 Range/Units 03:02 WBC 12.9 H (4.0-11.0) th/mm3 RBC 4.26 (4.00-5.30) mil/mm3 Hgb 12.5 (11.6-15.3) gm/dL Hct 38.7 (35.0-46.0) % Plt Count 295 (150-450) th/mm3 Neut # (Auto) 8.4 H (1.8-7.7) th/mm3 Lymph # (Auto) 3.3 (1.0-4.8) th/mm3 [place] # (Auto) 1.0 H (0.0-0.9) th/mm3 Eos # (Auto) 0.2 (0.0-0.4) th/mm3 Baso # (Auto) 0.0 (0.0-0.2) th/mm3 Comprehensive Metabolic Panel 06/06/18 Range/Units 03:02 Sodium 144 (136-145) meq/L Potassium 4.0 (3.5-5.1) meq/L Chloride 109 H (98-107) meq/L Carbon Dioxide 27.1 (21.0-32.0) meq/L BUN 21 H (7-18) mg/dL Creatinine 1.12 H (0.50-1.00) mg/dL Calcium 8.1 L (8.5-10.1) mg/dL AST 14 L (15-37) U/L ALT 22 (10-53) U/L Alkaline Phosphatase 105 (45-117) U/L Total Protein 6.4 (6.4-8.2) g/dL Albumin 3.0 L (3.4-5.0) g/dL Intake and Output 06/05/18 06/06/18 06/06/18 22:59 06:59 14:59 Other: Date of Last Bowel Movement 06/06/18 Weight 86.183 kg Weight On Admission 160.183 kg - Imaging and Cardiology Imaging: Impressions Chest X-Ray 06/06/18 02:42 CONCLUSION: Mild bilateral lower lung zone opacity likely representing atelectasis. EKG interpretations - EKG EKG results cardiology: sinus rhythm, normal axis, normal QRS, normal ST/T Caprini VTE Risk Assessment Caprini VTE Risk Assessment: Moderate/High Risk (score >= 2) Caprini Risk Assessment Model: Point Value = 1 Point Value = 2 Point Value = 3 Point Value = 5 Age 41-60 Minor surgery BMI > 25 kg/m2 Swollen legs Varicose veins or History of unexplained or recurrent spontaneous Oral contraceptives or hormone replacement Sepsis (< 1 month) Serious lung disease, including pneumonia (< 1 month) Abnormal pulmonary function Acute myocardial infarction Congestive heart failure (< 1 month) History of inflammatory bowel disease Medical patient at bed rest Age 61-74 Arthroscopic surgery Major open surgery (> 45 min) Laparoscopic surgery (> 45 min) Malignancy Confined to bed (> 72 hours) Immobilizing plaster cast Central venous access Age >= 75 History of VTE Family history of VTE Factor V Leiden Prothrombin [id number] Lupus anticoagulant Anticardiolipin antibodies Elevated serum homocysteine Heparin-induced thrombocytopenia Other congenital or acquired thrombophilia Stroke (< 1 month) Elective arthroplasty Hip, pelvis, or leg fracture Acute spinal cord injury (< 1 month) Prophylaxis Regimen: Total Risk Factor Score Risk Level Prophylaxis Regimen 0-1 Low Early ambulation 2 Moderate Order ONE of the following: *Sequential Compression Device (SCD) *Heparin 5000 units SQ BID 3-4 Higher Order ONE of the following medications: *Heparin 5000 units SQ TID *Enoxaparin/Lovenox 40 mg SQ daily (WT < 150 kg, CrCl > 30 mL/min) *Enoxaparin/Lovenox 30 mg SQ daily (WT < 150 kg, CrCl > 10-29 mL/min) *Enoxaparin/Lovenox 30 mg SQ BID (WT < 150 kg, CrCl > 30 mL/min) AND/OR *Sequential Compression Device (SCD) 5 or more Highest Order ONE of the following medications: *Heparin 5000 units SQ TID (Preferred with Epidurals) *Enoxaparin/Lovenox 40 mg SQ daily (WT < 150 kg, CrCl > 30 mL/min) *Enoxaparin/Lovenox 30 mg SQ daily (WT < 150 kg, CrCl > 10-29 mL/min) *Enoxaparin/Lovenox 30 mg SQ BID (WT < 150 kg, CrCl > 30 mL/min) AND *Sequential Compression Device (SCD) Assessment and Plan - Assessment (1) Chest pain Code(s): R07.9 - Chest pain, unspecified Status: Acute Plan: Admitted to chest pain center. Seen and evaluated by Dr. Luke Brasher. Proceed with CTA pulmonary to rule out pulmonary emboli, unclear while taking suboptimal Eliquis dosing. However she does have appropriate follow-up with her aviation electrician. If CTA unremarkable plan to proceed with Lexiscan later this morning if ACS ruled out. Agreeable to plan of care and verbalized understanding. (2) Asthma Code(s): J45.909 - Unspecified asthma, uncomplicated Status: Chronic Plan: Continue Symbicort. Albuterol nebulizers every 4 hours as needed for dyspnea/ wheezing. (3) GERD (gastroesophageal reflux disease) Code(s): K21.9 - Gastro-esophageal reflux disease without esophagitis Status: Chronic Plan: Continue esomeprazole. (4) History of pulmonary embolism Code(s): Z86.711 - Personal history of pulmonary embolism Status: Chronic Plan: Continue Eliquis at home dose of 2.5 mg BID. CTA pulmonary angiogram this morning to rule out PE due to reported 1 month dyspnea. If pulmonary embolism and stress induced ischemia ruled out plan to discharge increasing Eliquis dosing to 5 mg twice daily and will be instructed to follow up with PCP, criminal legal assistant, and aviation electrician. (5) History of supraventricular tachycardia Code(s): Z86.79 - Personal history of other diseases of the circulatory system Status: Chronic Plan: Stable. Continue home verapamil. (6) Hypothyroidism Code(s): E03.9 - Hypothyroidism, unspecified Status: Chronic Plan: Continue levothyroxine. (7) Seizure disorder Code(s): G40.909 - Epilepsy, unspecified, not intractable, without status epilepticus Status: Chronic Plan: Stable. Continue home dosing of Lyrica. H&P: Quality - VTE Deep Vein Thrombosis/Pulmonary Embolism Present on Admission: No (1) Chest pain Qualifiers: Chest pain type: unspecified Qualified Code(s): R07.9 - Chest pain, unspecified (2) Asthma Qualifiers: Asthma complication type: unspecified (3) GERD (gastroesophageal reflux disease) Qualifiers: Esophagitis presence: esophagitis presence not specified Qualified Code(s): K21.9 - Gastro-esophageal reflux disease without esophagitis (6) Hypothyroidism Qualifiers: Hypothyroidism type: unspecified Qualified Code(s): E03.9 - Hypothyroidism, unspecified
[2018-06-06] MEDS ORDERED: Levothyroxine 88 MCG Tablet PO SCH (09:30)
[2018-06-06] MEDS: Pregabalin 75 MG Capsule PO SCH ×2 (09:37→13:27)
[2018-06-06 09:55] LABS: Creatine Kinase 139 U/L (26-192)
--- NOTE | 2018-06-06 09:57 | CT ---
EXAM DATE: 06/06/2018 9:50 AM EST AGE/SEX: 63 years / Female INDICATIONS: Chest pain last night. CLINICAL DATA: This is the patient's initial encounter. Patient reports that signs and symptoms have been present for 1 day and indicates a pain score of 0/10. MEDICAL/SURGICAL HISTORY: Asthma. Gastroesophageal reflux disease. Hysterectomy. RADIATION DOSE: 17.42 CTDI (mGy) COMPARISON: [facility] [place], CT PULMONARY ANGIOGRAM, 09/04/2016. . TECHNIQUE: Volumetric scanning was performed using a multi-row detector CT scanner during bolus infu vince of 70 ml Omnipaque 350 (iohexol) nonionic water-soluble contrast as a single exam dose. The maryanne a was post processed with a variety of visualization algorithms including full volume maximum intensi ty projection and sliding thin slab reformation. Using automated exposure control and adjustment of t he mA and/or kV according to patient size, radiation dose was kept as low as reasonably achievable to obtain optimal diagnostic quality images. DICOM format image data is available electronically for r eview and comparison. FINDINGS: Pulmonary Arteries: No filling defects are seen in the pulmonary arteries out to the subsegmental ve ssels. The left and right pulmonary arteries are normal in diameter. Focal LAD calcification Lung: No infiltrates seen. Effusion: None. Mediastinum: No evidence of mediastinal or hilar adenopathy. Other: The axilla is unremarkable. CONCLUSION: 1. Negative for central pulmonary emboli 2. Focal LAD calcifications Electronically signed by: Cristopher Thrasher MD 06/06/2018 9:56 AM EST
[2018-06-06] MEDS ORDERED: Budesonide-Formoterol 160/4.5 MCG 6 GM Inhaler INH SCH (10:00)
[2018-06-06] MEDS ORDERED: Regadenoson Inj 0.4 MG/5 ML Syringe IV.PUSH ONE (11:27)
--- NOTE | 2018-06-06 12:53 | NM ---
EXAM DATE: 06/06/2018 12:45 PM EST AGE/SEX: 63 years / Female INDICATIONS:Angina. . Chest pain. CLINICAL DATA: This is the patient's initial encounter. Patient reports that signs and symptoms have been present for 1 day and indicates a pain score of 0/10. MEDICAL/SURGICAL HISTORY: Hypothyroidism. Gastroesophageal reflux disease. Mitral valve prolap se. Hysterectomy. Craniotomy. Colon resection. COMPARISON: [facility] [place]OCARD[place] PERF PHARM SPECT, 04/23/2015. . DOSE: 8.7 mCi Tc 99m Myoview at rest 26.7 mCi Sx56j-Nironbc at stress 0.4 mg Lexiscan STRESS SYMPTOMS: Flush. EJECTION FRACTION: 67 % TECHNIQUE: The patient underwent pharmacologic stress with infusion of prescribed dose. Continuous ECG tracing was monitored during stress. Gated SPECT imaging was performed after stress and conventi onal SPECT imaging was performed at rest. The examination was performed on a SPECT/CT scanner, both attenuation and non-corrected datasets were reviewed. FINDINGS: Distribution: The maximum perfused segment at stress is in the wall. Perfusion Study: The pattern of perfusion at stress is within normal limits. Gated Study: There are intact wall motion and wall thickening without hypokinetic or dyskinetic segm ents. The ejection fraction is calculated at 67%. RISK CATEGORY: Low (<1% Annual Motality Rate) CONCLUSION: 1. Negative for stress-induced ischemia Electronically signed by: Cristopher Thrasher MD 06/06/2018 12:51 PM EST
[2018-06-06] MEDS ORDERED: Verapamil 120 MG Tablet PO SCH (13:00)
--- NOTE | 2018-06-07 09:12 | TR ---
Date Performed: 06/06/2018 Time Performed: 11:35:12 DOCTOR: Helena Caraballo DRUG LIST: Kizzy Mcdaniel CLINICAL HISTORY: ASTHMA CARDIAC CATH CHEST PAIN REASON FOR TEST: REASON FOR ENDING: OBSERVATION: CONCLUSION: Lexiscan stress test was performed under standard four minute protocol. Radionuclid e was injected one minute prior to ending the test. No electrocardiographic abormalities were present to suggest ischemia. Nuclear imaging and interpretation are pending. COMMENTS: Lexiscan stress test was performed under standard four minute protocol. Radionuclide was injected one minute prior to ending the test. No electrocardiographic abormalities were present t o suggest ischemia. Nuclear imaging and interpretation are pending.
--- NOTE | 2018-06-07 09:13 | ECG ---
Date Performed: 06/06/2018 Time Performed: 02:43:09 PTAGE: 63 years EKG: Sinus rhythm NORMAL ECG Since PREVIOUS TRACING , no significant change noted PREVIOUS TRACIN07/13/2017 12.36 DOCTOR: Helena Caraballo Interpretating Date/Time 06/07/2018 09:11:59
--- NOTE | 2018-06-07 09:13 | ECG ---
Date Performed: 06/06/2018 Time Performed: 06:13:59 PTAGE: 63 years EKG: Sinus rhythm NORMAL ECG Since PREVIOUS TRACING , no significant change noted PREVIOUS TRACIN06/06/2018 02.43 DOCTOR: Helena Caraballo Interpretating Date/Time 06/07/2018 09:12:10
== END 2018-06-06 14:11 | disposition home or self-care (01) ==
LOC: NEPE 02:21 → NEDA 02:21 → NEPFCDU 05:04
PROVIDERS: ADMIT Internal Medicine Interventional Cardiology; ATTEND Internal Medicine Interventional Cardiology